=== PATIENT | female | born 1985 | race African-American/Black ===

== ENCOUNTER 2016-12-30 08:35 | Emergency (ER) | payer SELFPAY ==
[2016-12-30] MEDS ORDERED: NORMAL SALINE 1000 ML 1,000 ML IV PRN (09:52)
[2016-12-30 10:54] LABS: ABSOLUTE BASOPHILS # (AUTO) 0.1 10^3/uL (0.0-0.2); ABSOLUTE EOSINOPHILS # (AUTO) 0.1 10^3/uL (0.0-0.6); ABSOLUTE LYMPHOCYTES (AUTO) 2.5 10^3/uL (0.5-4.7); ABSOLUTE MONOCYTES (AUTO) 0.7 10^3/uL (0.1-1.4); ABSOLUTE NEUT (AUTO) 7.1 10^3/uL (1.7-8.2); BASOPHILS % (AUTO) 0.7 % (0-2); EOSINOPHILS % (AUTO) 0.5 % (0-6); HEMOGLOBIN 12.7 g/dL (12.0-15.5); HGB HCT DIFFERENCE 0.1; LYMPHOCYTES % (AUTO) 23.8 % (13-45); MEAN CORPUSCULAR HEMOGLOBIN 29.4 pg (27.0-33.4); MEAN CORPUSCULAR HGB CONC 33.3 g/dL (32.0-36.0); MEAN CORPUSCULAR VOLUME 88 fl (80-97); MONOCYTES % (AUTO) 7.2 % (3-13); RED BLOOD COUNT 4.31 10^6/uL (3.72-5.28); RED CELL DISTRIBUTION WIDTH 14.7 % (11.5-14.0); SEGMENTED NEUTROPHILS % (AUTO) 67.8 % (42-78); WHITE BLOOD COUNT 10.4 10^3/uL (4.0-10.5)
[2016-12-30 11:01] LABS: APPEARANCE,URINE SLIGHTLY-CLOUDY; BILIRUBIN,URINE NEGATIVE (NEGATIVE); GLUCOSE, URINE NEGATIVE (NEGATIVE); KETONES,URINE TRACE mg/dL (NEGATIVE); LEUKOCYTE ESTERASE,URINE TRACE (NEGATIVE); NITRITE,URINE NEGATIVE (NEGATIVE); PROTEIN,URINE NEGATIVE (NEGATIVE); URINE SPECIFIC GRAVITY 1.018
[2016-12-30 11:14] LABS: ANION GAP 12 (5-19); BLOOD UREA NITROGEN 8 mg/dL (7-20); CALCIUM 9.5 mg/dL (8.4-10.2); CARBON DIOXIDE 25 mmol/L (22-30); CHLORIDE 103 mmol/L (98-107); GLUCOSE 83 mg/dL (75-110); POTASSIUM 4.1 mmol/L (3.6-5.0); SODIUM 139.7 mmol/L (137-145)
--- NOTE | 2016-12-30 12:20 | ER Document Report ---
ED General - General Chief Complaint: Vomiting Stated Complaint: VOMITING AND BACK PAIN TRAVEL OUTSIDE OF THE [place] IN LAST 30 DAYS: No - HPI Patient complains to provider of: nausea vomiting back pain Notes: Patient coming in for evaluation nausea vomiting patient states that she is and is a patient denies any abdominal pain vaginal discharge vaginal bleeding. States is ongoing for the past few days. Patient states last menstrual cycle was approximately September early October. Patient denies trying any medications at home. Denies any recent antibiotics denies any recent travel - Related Data Allergies/Adverse Reactions: codeine Allergy (Verified 12/30/16 08:47) Past Medical History - Social History Smoking Status: Never Smoker Chew tobacco use (# tins/day): No Frequency of alcohol use: None Drug Abuse: None Family History: Reviewed & Not Pertinent Patient has suicidal ideation: No Patient has homicidal ideation: No Pulmonary Medical History: Reports: Hx Bronchitis Neurological Medical History: Reports: Hx Migraine Renal/ Medical History: Denies: Hx Peritoneal Dialysis Past Surgical History: Reports: Hx Cholecystectomy - Immunizations Hx Diphtheria, Pertussis, Tetanus Vaccination: Yes - received in 04/2012 per pt Review of Systems - Review of Systems Constitutional: No symptoms reported EENT: No symptoms reported Cardiovascular: No symptoms reported Respiratory: No symptoms reported Gastrointestinal: Nausea, Vomiting Genitourinary: No symptoms reported Female Genitourinary: No symptoms reported Musculoskeletal: No symptoms reported Skin: No symptoms reported Hematologic/Lymphatic: No symptoms reported Neurological/Psychological: No symptoms reported -: Yes All other systems reviewed and negative Physical Exam - Vital signs Vitals: Temp Pulse Resp BP Pulse Ox 98.0 F 88 18 116/68 100 12/30/16 08:46 12/30/16 08:46 12/30/16 08:46 12/30/16 08:46 12/30/16 08:46 Interpretation: Normal - General General appearance: Appears well, Alert - HEENT Head: Normocephalic, Atraumatic Eyes: Normal Pupils: PERRL - Respiratory Respiratory status: No respiratory distress Chest status: Nontender Breath sounds: Normal Chest palpation: Normal - Cardiovascular Rhythm: Regular Heart sounds: Normal auscultation Murmur: No - Abdominal Inspection: Normal Distension: No distension Bowel sounds: Normal Tenderness: Nontender Organomegaly: No organomegaly - Back Back: Normal, Nontender - Extremities General upper extremity: Normal inspection, Nontender, Normal color, Normal ROM , Normal temperature General lower extremity: Normal inspection, Nontender, Normal color, Normal ROM , Normal temperature, Normal weight bearing. No: Duncan's sign - Neurological Neuro grossly intact: Yes Cognition: Normal Orientation: AAOx4 Arline Coma Scale Eye Opening: Spontaneous [place] Coma Scale Verbal: Oriented Arline Coma Scale Motor: Obeys Commands [place] Coma Scale Total: 15 Speech: Normal Motor strength normal: LUE, RUE, LLE, RLE Sensory: Normal - Psychological Associated symptoms: Normal affect, Normal mood - Skin Skin Temperature: Warm Skin Moisture: Dry Skin Color: Normal Course - Re-evaluation Re-evalutation: 12/30/16 15:02 Ultrasound negative feeling that the nausea medication. Patient will be discharged home patient encouraged follow-up with REJECT OPENER - Vital Signs Vital signs: Temp Pulse Resp BP Pulse Ox 98.1 F 76 18 114/65 100 12/30/16 12:26 12/30/16 12:26 12/30/16 12:26 12/30/16 12:26 12/30/16 12:26 - Laboratory Result Diagrams: 12/30/16 10:32 12/30/16 10:32 Laboratory results interpreted by me: 12/30/16 12/30/16 12/30/16 09:25 10:32 10:32 RDW 14.7 H Creatinine 0.50 L Beta HCG, Quant 03106.00 H Urine Ketones TRACE H Urine Urobilinogen 2.0 H Ur Leukocyte Esterase TRACE H Urine HCG, Qual POSITIVE H Discharge - Discharge Clinical Impression: Nausea/vomiting in Qualifiers: Weeks of gestation: less than 8 weeks Qualified Code(s): Z3A.01 - Less than 8 weeks gestation of Low back pain Qualifiers: Chronicity: unspecified Back pain laterality: unspecified Sciatica presence: without sciatica Qualified Code(s): M54.5 - Low back pain Condition: Good Disposition: HOME, SELF-CARE Instructions: ([facility]), Nausea or Vomiting, Nonspecific ([facility]), Stretching Exercises for the Back ([facility]), Low Back Pain ([facility]), Pelvic Pain in ([facility]) Additional Instructions: Your ultrasound today shows a 6 week 4 day . Your lab work does not reveal any other critical etiology. Please take vitamins as prescribed. Please take nausea medication as prescribed. You may take Tylenol for your pain. For nausea and vomiting during I recomment: Start with 10-12.5 mg of pyridoxine (vitamin B6) three times a day for 2 days. If not fully effective, Increase to 12.5 mg of pyridoxine four times a day for 2 days. If not fully effective, Increase to 25 mg of pyridoxine three times a day for 2 days. If not fully effective, Continue 25 mg pyridoxine 3 times a day, and add 12.5 mg of doxylamine before bedtime each day for 2 days. If not fully effective, Continue 25 mg pyridoxine 3 times a day, and take 12.5 mg of doxylamine twice a day. If not fully effective, Continue 25 mg pyridoxine 3 times a day, and take 12.5 mg of doxylamine three times a day. If not fully effective, Continue 25 mg pyridoxine 3 times a day, and 12.5 mg of doxylamine 3 times a day , while adding Emetrol, one to two tablespoons (15-30 cc) taken once or twice a day as needed. (Emetrol is an [id number] mixture of sugar syrups and phosphoric acid [phosphorylated carbohydrate solution]) that acts by soothing the actual wall of the gastrointestinal tract). If not fully effective, Consult with your doctor. Prescriptions: Metoclopramide HCl [Reglan] 5 mg PO Q6 #20 tablet Pnv95/Ferrous Fumarate/FA [ Caplet] 1 each PO DAILY #30 tablet Referrals: TERENCE SARABIA MD [Primary Care Provider] - Follow up in 3-5 days
[2016-12-30 12:30] VITALS: BP 114/65
== END 2016-12-30 12:37 | disposition home or self-care (01) ==
LOC: ER 08:35
DX: O21.9 Vomiting of pregnancy, unspecified (principal); M54.5 Low back pain; Z3A.01 Less than 8 weeks gestation of pregnancy; Z88.6 Allergy status to analgesic agent; Z90.49 Acquired absence of other specified parts of digestive tract
CPT/HCPCS: 99284; 96360; 36415; 84702; 85025; 81025; 80048; 81001; 76817; J7030

== ENCOUNTER 2017-01-04 15:34 | Emergency (ER) | payer SELFPAY ==
[2017-01-04] MEDS ORDERED: DIPHENHYDRAMINE HCL 50 MG CAPSULE PO ONE (16:43)
--- NOTE | 2017-01-04 16:43 | ER Document Report ---
ED Medical Screen (RME) - General Chief Complaint: Headache Stated Complaint: HEADACHE Mode of Arrival: Ambulatory Information source: Patient Notes: Patient complains of headache pain yesterday that has gradually gotten worse. No fever. Patient does complain of nausea, vomiting, and diarrhea. Patient reports vomiting 10 today, diarrhea 5. Patient states she's currently 7 weeks . Patient took Tylenol at 3 PM today without improvement. hx: Migraines I have greeted and performed a rapid initial assessment of this patient. A comprehensive ED assessment and evaluation of the patient, analysis of test results and completion of the medical decision making process will be conducted by additional ED providers. TRAVEL OUTSIDE OF THE [place] IN LAST 30 DAYS: No - Related Data Allergies/Adverse Reactions: codeine Allergy (Verified 12/30/16 08:47) Past Medical History - Social History Family history: Reviewed & Not Pertinent Pulmonary Medical History: Reports: Hx Bronchitis Neurological Medical History: Reports: Hx Migraine Renal/ Medical History: Denies: Hx Peritoneal Dialysis Past Surgical History: Reports: Hx Cholecystectomy - Immunizations Hx Diphtheria, Pertussis, Tetanus Vaccination: Yes - received in 04/2012 per pt Physical Exam - Vital signs Vitals: Temp Pulse Resp BP Pulse Ox 98.3 F 82 16 108/70 100 01/04/17 16:37 01/04/17 16:37 01/04/17 16:37 01/04/17 16:37 01/04/17 16:37 - Neurological Arline Coma Scale Eye Opening: Spontaneous [place] Coma Scale Verbal: Oriented Arline Coma Scale Motor: Obeys Commands [place] Coma Scale Total: 15 Course - Vital Signs Vital signs: Temp Pulse Resp BP Pulse Ox 98.3 F 82 16 108/70 100 01/04/17 16:37 01/04/17 16:37 01/04/17 16:37 01/04/17 16:37 01/04/17 16:37
[2017-01-04 17:48] LABS: ABSOLUTE BASOPHILS # (AUTO) 0.1 10^3/uL (0.0-0.2); ABSOLUTE MONOCYTES (AUTO) 0.9 10^3/uL (0.1-1.4); ABSOLUTE NEUT (AUTO) 10.3 10^3/uL (1.7-8.2); BASOPHILS % (AUTO) 0.4 % (0-2); EOSINOPHILS % (AUTO) 0.2 % (0-6); HEMATOCRIT 38.6 % (36.0-47.0); HEMOGLOBIN 12.8 g/dL (12.0-15.5); HGB HCT DIFFERENCE -0.2; LYMPHOCYTES % (AUTO) 14.9 % (13-45); MEAN CORPUSCULAR HGB CONC 33.1 g/dL (32.0-36.0); MEAN CORPUSCULAR VOLUME 88 fl (80-97); MONOCYTES % (AUTO) 6.4 % (3-13); RED CELL DISTRIBUTION WIDTH 14.2 % (11.5-14.0); SEGMENTED NEUTROPHILS % (AUTO) 78.1 % (42-78); WHITE BLOOD COUNT 13.2 10^3/uL (4.0-10.5)
[2017-01-04 18:05] LABS: ALANINE AMINOTRANSFERASE 33 U/L (9-52); ALBUMIN 4.1 g/dL (3.5-5.0); ALKALINE PHOSPHATASE 83 U/L (38-126); ANION GAP 15 (5-19); ASPARTATE AMINO TRANSFERASE 27 U/L (14-36); BLOOD UREA NITROGEN 9 mg/dL (7-20); CALCIUM 9.4 mg/dL (8.4-10.2); CARBON DIOXIDE 22 mmol/L (22-30); CHLORIDE 101 mmol/L (98-107); CREATININE RESULT 0.49 mg/dL (0.52-1.25); GLUCOSE 84 mg/dL (75-110); LIPASE 22.2 U/L (23-300); POTASSIUM 3.8 mmol/L (3.6-5.0); SODIUM 137.5 mmol/L (137-145); TOTAL PROTEIN 7.4 g/dL (6.3-8.2)
[2017-01-04 22:43] LABS: APPEARANCE,URINE TURBID; BILIRUBIN,URINE NEGATIVE (NEGATIVE); GLUCOSE, URINE NEGATIVE (NEGATIVE); KETONES,URINE 80 mg/dL (NEGATIVE); LEUKOCYTE ESTERASE,URINE TRACE (NEGATIVE); NITRITE,URINE NEGATIVE (NEGATIVE); PROTEIN,URINE NEGATIVE (NEGATIVE); URINE SPECIFIC GRAVITY 1.028
[2017-01-04] MEDS ORDERED: NORMAL SALINE 1000 ML 1,000 ML IV PRN (22:54)
[2017-01-04] MEDS ORDERED: METOCLOPRAMIDE HCL INJ/PF 10 MG/2 ML SDV IV ONE (22:54)
--- NOTE | 2017-01-04 23:20 | ER Document Report ---
ED Headache - General Chief Complaint: Headache Stated Complaint: HEADACHE Time seen by provider: 23:20 Mode of Arrival: Ambulatory Information source: Patient TRAVEL OUTSIDE OF THE [place] 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, she denies any fever, no dysuria or hematuria, no pelvic cramping or vaginal bleeding, she has not been seen by her RECYCLING TECHNICIAN for this , she denies any abdominal pain - Related Data Allergies/Adverse Reactions: codeine Allergy (Verified 12/30/16 08:47) Past Medical History - General Information source: Patient - Social History Smoking Status: Never Smoker Family History: Reviewed & Not Pertinent Patient has suicidal ideation: No Patient has homicidal ideation: No Pulmonary Medical History: Reports: Hx Bronchitis Neurological Medical History: Reports: Hx Migraine Renal/ Medical History: Denies: Hx Peritoneal Dialysis Past Surgical History: Reports: Hx Cholecystectomy - Immunizations Hx Diphtheria, Pertussis, Tetanus Vaccination: Yes - received in 04/2012 per pt Review of Systems - Review of Systems Constitutional: No symptoms reported. denies: Fever EENT: No symptoms reported Cardiovascular: No symptoms reported Respiratory: No symptoms reported Gastrointestinal: See HPI Genitourinary: No symptoms reported Female Genitourinary: No symptoms reported Musculoskeletal: No symptoms reported Skin: No symptoms reported Hematologic/Lymphatic: No symptoms reported Neurological/Psychological: Headaches -: Yes All other systems reviewed and negative Physical Exam - Vital signs Vitals: Temp Pulse Resp BP Pulse Ox 98.3 F 82 16 108/70 100 01/04/17 16:37 01/04/17 16:37 01/04/17 16:37 01/04/17 16:37 01/04/17 16:37 Interpretation: Normal - General General appearance: Appears well, Alert - HEENT Head: Normocephalic, Atraumatic Eyes: Normal Pupils: PERRL - Respiratory Respiratory status: No respiratory distress Chest status: Nontender Breath sounds: Normal Chest palpation: Normal - Cardiovascular Rhythm: Regular Heart sounds: Normal auscultation Murmur: No - Abdominal Inspection: Normal Distension: No distension Bowel sounds: Normal Tenderness: Nontender Organomegaly: No organomegaly - Back Back: Normal, Nontender - Extremities General upper extremity: Normal inspection, Nontender, Normal color, Normal ROM , Normal temperature General lower extremity: Normal inspection, Nontender, Normal color, Normal ROM , Normal temperature, Normal weight bearing. No: Duncan's sign - Neurological Neuro grossly intact: Yes Cognition: Normal Orientation: AAOx4 [place] Coma Scale Eye Opening: Spontaneous [place] Coma Scale Verbal: Oriented Arline Coma Scale Motor: Obeys Commands [place] Coma Scale Total: 15 Speech: Normal Motor strength normal: LUE, RUE, LLE, RLE Sensory: Normal - Psychological Associated symptoms: Normal affect, Normal mood - Skin Skin Temperature: Warm Skin Moisture: Dry Skin Color: Normal Course - Re-evaluation Re-evalutation: 01/05/17 01:10 Patient resting comfortably, reports feeling much better and ready to go home, she is tolerating by mouth intake, patient will be discharged with prescription for antinausea medication and advised to follow-up with her primary care provider and RECYCLING TECHNICIAN or return if symptoms worsen, patient acknowledges understanding and agreement with this plan - Vital Signs Vital signs: Temp Pulse Resp BP Pulse Ox 97.6 F 72 16 130/78 H 100 01/04/17 22:46 01/04/17 22:46 01/04/17 22:46 01/04/17 22:46 01/04/17 22:46 - Laboratory Result Diagrams: 01/04/17 17:05 01/04/17 17:05 Laboratory results interpreted by me: 01/04/17 01/04/17 01/04/17 17:05 17:05 17:05 WBC 13.2 H RDW 14.2 H Seg Neutrophils % 78.1 H Absolute Neutrophils 10.3 H Creatinine 0.49 L Lipase 22.2 L Beta HCG, Quant 826499.00 H Urine Ketones 80 H Urine Urobilinogen 2.0 H Ur Leukocyte Esterase TRACE H Discharge - Discharge Clinical Impression: Nausea/vomiting in Qualifiers: Weeks of gestation: less than 8 weeks Qualified Code(s): Z3A.01 - Less than 8 weeks gestation of Headache Qualifiers: Headache type: unspecified Headache chronicity pattern: acute headache Intractability: not intractable Qualified Code(s): R51 - Headache Condition: Stable Disposition: HOME, SELF-CARE Instructions: Intravenous (IV) Fluids ([facility]), Reglan ([facility]), Vomiting ([facility]), Antinausea Medication ([facility]) Additional Instructions: Follow up with your primary care provider and RECYCLING TECHNICIAN in one to 2 days. Return to the emergency room immediately if symptoms worsen or any additional concerns. Prescriptions: Metoclopramide HCl [Reglan 10 mg Tablet] 1 - 2 tab PO ASDIR PRN #25 tablet PRN Reason: Forms: Return to Work
[2017-01-05] MEDS ORDERED: METOCLOPRAMIDE HCL INJ/PF 10 MG/2 ML SDV IV ONE (01:10)
[2017-01-05 01:46] VITALS: BP 130/74
== END 2017-01-05 01:46 | disposition home or self-care (01) ==
LOC: ER 15:34
DX: O26.891 Other specified pregnancy related conditions, first trimester (principal); R51 Headache; O21.9 Vomiting of pregnancy, unspecified; Z3A.01 Less than 8 weeks gestation of pregnancy; Z88.5 Allergy status to narcotic agent; Z90.49 Acquired absence of other specified parts of digestive tract
CPT/HCPCS: 96376; 99284; 96361; 96374; 36415; 84702; 83690; 85025; 80053; 81001; J2765 ×2; J7030

== ENCOUNTER 2017-02-24 18:52 | Emergency (ER) | payer MEDICAID ==
--- NOTE | 2017-02-24 20:12 | ER Document Report ---
ED Medical Screen (RME) - General Stated Complaint: VAGINAL BLEEDING Notes: 32 yo , 14wks gestation c/o lower abdominal cramping/pressure and vaginal spotting since this morning. reports 1 episode hematemesis this morning [facility]- [facility] TRAVEL OUTSIDE OF THE [place] IN LAST 30 DAYS: No - Related Data Allergies/Adverse Reactions: codeine Allergy (Verified 12/30/16 08:47) Past Medical History - Social History Family history: Reviewed & Not Pertinent Pulmonary Medical History: Reports: Hx Bronchitis Neurological Medical History: Reports: Hx Migraine Renal/ Medical History: Denies: Hx Peritoneal Dialysis Past Surgical History: Reports: Hx Cholecystectomy - Immunizations Hx Diphtheria, Pertussis, Tetanus Vaccination: Yes - received in 04/2012 per pt Physical Exam - Vital signs Vitals: Temp Pulse Resp BP Pulse Ox 98.9 F 94 16 119/70 100 02/24/17 18:56 02/24/17 18:56 02/24/17 18:56 02/24/17 18:56 02/24/17 18:56 Course - Vital Signs Vital signs: Temp Pulse Resp BP Pulse Ox 98.9 F 94 16 119/70 100 02/24/17 18:56 02/24/17 18:56 02/24/17 18:56 02/24/17 18:56 02/24/17 18:56
[2017-02-24 20:56] LABS: APPEARANCE,URINE SLIGHTLY-CLOUDY; BILIRUBIN,URINE NEGATIVE (NEGATIVE); GLUCOSE, URINE NEGATIVE (NEGATIVE); KETONES,URINE TRACE mg/dL (NEGATIVE); LEUKOCYTE ESTERASE,URINE TRACE (NEGATIVE); NITRITE,URINE NEGATIVE (NEGATIVE); PROTEIN,URINE NEGATIVE (NEGATIVE); URINE SPECIFIC GRAVITY 1.033
--- NOTE | 2017-02-24 22:42 | ER Document Report ---
ED GI/ - General Time seen by provider: 23:40 Mode of Arrival: Ambulatory Information source: Patient TRAVEL OUTSIDE OF THE [place] IN LAST 30 DAYS: No - HPI Patient complains to provider of: Abdominal pain, , Vaginal bleeding Onset: This morning - see HPI note Quality of pain: Cramping, Stabbing : 7 Para: 4 Abortions: 2 - General Chief Complaint: Vag Bleeding, +preg <12wks Stated Complaint: VAGINAL BLEEDING Notes: Patient is a 22-year-old female presenting to the emergency department for vaginal bleeding and stabbing abdominal pain. Patient states the symptoms started this morning. Patient's ultrasound today from today's visit shows the patient is 15 weeks and 1 day . Patient denies any recent sex, nausea, vomiting, or diarrhea. Patient states that she has used a pad, but has not soaked through the pad with her bleeding. Patient is G7, P4, A2. Patient[facility] Patient is allergic to codeine. (CELSA UMAÑA) - Related Data Allergies/Adverse Reactions: codeine Allergy (Verified 12/30/16 08:47) Past Medical History - General Information source: Patient - Social History Smoking Status: Never Smoker Chew tobacco use (# tins/day): No Frequency of alcohol use: None Drug Abuse: None Family History: None Patient has suicidal ideation: No Patient has homicidal ideation: No Pulmonary Medical History: Reports: Hx Bronchitis Neurological Medical History: Reports: Hx Migraine Past Surgical History: Reports: Hx Cholecystectomy - Immunizations Hx Diphtheria, Pertussis, Tetanus Vaccination: Yes - received in 04/2012 per pt Review of Systems - Review of Systems Constitutional: No symptoms reported EENT: No symptoms reported Cardiovascular: No symptoms reported Respiratory: No symptoms reported Gastrointestinal: See HPI, Abdominal pain Genitourinary: No symptoms reported Female Genitourinary: See HPI, , Vaginal bleeding Musculoskeletal: No symptoms reported Skin: No symptoms reported Hematologic/Lymphatic: No symptoms reported Neurological/Psychological: No symptoms reported -: Yes All other systems reviewed and negative Physical Exam - Vital signs Interpretation: Normal - General General appearance: Appears well, Alert In distress: Mild - HEENT Head: Normocephalic, Atraumatic Eyes: Normal Pupils: PERRL Mucous membranes: Moist - Respiratory Respiratory status: No respiratory distress Chest status: Nontender Breath sounds: Normal Chest palpation: Normal - Cardiovascular Rhythm: Regular Heart sounds: Normal auscultation Murmur: No - Abdominal Inspection: Normal Distension: No distension Bowel sounds: Normal Tenderness: Nontender Organomegaly: No organomegaly - Genitourinary External exam: Normal Speculum exam: Normal, Cervix closed Vaginal bleeding: None Bimanuel exam: Normal - Back Back: Normal, Nontender - Extremities General upper extremity: Normal inspection, Normal ROM, Normal strength General lower extremity: Normal inspection, Normal ROM, Normal strength - Neurological Neuro grossly intact: Yes Cognition: Normal Orientation: AAOx4 [place] Coma Scale Eye Opening: Spontaneous [place] Coma Scale Verbal: Oriented [place] Coma Scale Motor: Obeys Commands [place] Coma Scale Total: 15 Speech: Normal Sensory: Normal - Psychological Associated symptoms: Normal affect, Normal mood - Skin Skin Temperature: Warm Skin Moisture: Dry - Vital signs Vitals: Temp Pulse Resp BP Pulse Ox 98.9 F 94 16 119/70 100 02/24/17 18:56 02/24/17 18:56 02/24/17 18:56 02/24/17 18:56 02/24/17 18:56 Course - Re-evaluation Re-evalutation: 02/25/17 00:55 I personally performed the services described in the documentation, reviewed and edited the documentation which was dictated to my scribe in my presence, and it accurately records my words and actions. Patient presents emergency from states she's 14 weeks she's been spotting. Chart says she's been throwing up blood she denies that to me. Says she was using a pad and had a couple specks of blood on it. Says she just [facility]. She is denying any abdominal pain back pain urinary symptoms fevers chills or change in appetite no nausea vomiting diarrhea says occasionally she gets a little cramping with the spotting. She is with 2 miscarriages. On pelvic examination her os is closed is no active bleeding ultrasound shows her to be 15 weeks and 1 day. She is Rh- and be given the RhoGAM shot. She is going to be discharge follow-up with women's health care in the next 2-3 days and instructed her to return immediately for increasing bleeding pain or any other concerns by the above treatment. (NISSA CROCKETT) - Vital Signs Vital signs: Temp Pulse Resp BP Pulse Ox 98.3 F 88 16 123/78 99 02/25/17 02:10 02/25/17 02:10 02/25/17 02:10 02/25/17 02:10 02/25/17 02:10 - Laboratory Laboratory results interpreted by me: 02/24/17 02/24/17 20:20 20:20 Beta HCG, Quant 70315.00 H Urine Ketones TRACE H Urine Urobilinogen 2.0 H Ur Leukocyte Esterase TRACE H Discharge - Discharge Clinical Impression: second trimester spotting Condition: Stable Disposition: HOME, SELF-CARE Additional Instructions: Vaginal spotting in You are having an episode of abnormal bleeding. Causes of abnormal vaginal bleeding can include miscarriage or tubal , tumors such as cancer or benign fibroids, medication effects, or hormone imbalance. Testing can eliminate unsuspected , tumors, or infection as a cause. Ultrasound shows you to be 15 weeks and 1 day. Currently your not actively bleeding on my examination. On call women's health in the a.m. follow-up with them in 2-3 days and return immediately to the emergency prone for increasing pain bleeding or any other concerns despite the above treatment Forms: Return to Work Referrals: [facility] [Provider Group] - Follow up tomorrow (Call in a.m. to be seen in follow-up in 2-3 days return for increasing worsening or new symptom) Scribe Documentation - Scribe Written by Scribcharla:: Celsa Umaña 02/25/17 2:50 acting as scribe for :: Carmelo
[2017-02-25 02:37] VITALS: BP 123/78
== END 2017-02-25 02:37 | disposition home or self-care (01) ==
LOC: ER 18:52
DX: O46.92 Antepartum hemorrhage, unspecified, second trimester (principal)
CPT/HCPCS: 99284; 96372; 86900; 86901; 36415; 86850; 84702; 81001; 76805; J2790

== ENCOUNTER 2017-03-18 12:14 | Emergency (ER) | payer MEDICAID ==
--- NOTE | 2017-03-18 13:54 | ER Document Report ---
HPI - HPI Patient complains to provider of: sore throat, ear pain, nasal congestion Onset: Other - wednesday Onset/Duration: Persistent Quality of pain: Achy Severity: Severe Pain Level: 4 Context: Patient presents to emergency department with complaints of flulike symptoms. Patient reports she's had a lot of nasal congestion, ear pain and a sore throat since Wednesday. She denies fever vomiting diarrhea. Patient is 17 weeks . She denies pain with void. She denies vaginal bleeding, denies abdominal pain. She denies cough. She reports one of her children had strep earlier this week. Associated Symptoms: Earache, Sore throat Exacerbated by: Denies Relieved by: Denies Similar symptoms previously: No Recently seen / treated by doctor: No - CARDIOVASCULAR Cardiovascular: DENIES: Chest pain - REPRODUCTIVE Reproductive: DENIES: : - DERM Skin Color: Normal Past Medical History - General Information source: Patient Last Menstrual Period: 17 weeks - Social History Smoking Status: Never Smoker Cigarette use (# per day): No Chew tobacco use (# tins/day): No Frequency of alcohol use: None Drug Abuse: None Lives with: Family Family History: None Patient has suicidal ideation: No Patient has homicidal ideation: No Pulmonary Medical History: Reports: Hx Bronchitis Neurological Medical History: Reports: Hx Migraine Renal/ Medical History: Denies: Hx Peritoneal Dialysis Past Surgical History: Reports: Hx Cholecystectomy - Immunizations Hx Diphtheria, Pertussis, Tetanus Vaccination: Yes - received in 04/2012 per pt Vertical Provider Document - CONSTITUTIONAL Agree With Documented VS: Yes Exam Limitations: No Limitations General Appearance: WD/WN, No Apparent Distress - nontoxic looking - INFECTION CONTROL TRAVEL OUTSIDE OF THE [place] IN LAST 30 DAYS: No - HEENT HEENT: Atraumatic, Normocephalic, PERRLA, Pharyngeal Erythema - No peritonsillar abscess good clear voice no trismus. negative: Conjuctival Injection, Pharyngeal Exudate, Pharyngeal Tenderness, Tympanic Membrane Red, Tympanic Membrane Bulging - NECK Neck: Normal Inspection - RESPIRATORY Respiratory: Breath Sounds Normal, No Respiratory Distress O2 Sat by Pulse Oximetry: 99 - CARDIOVASCULAR Cardiovascular: Regular Rate, Regular Rhythm - GI/ABDOMEN Gastrointestinal: Abdomen Non-Tender - MUSCULOSKELETAL/EXTREMETIES Musculoskeletal/Extremeties: ZACH ADAME - NEURO Level of Consciousness: Awake, Alert, Appropriate Motor/Sensory: No Motor Deficit - DERM Integumentary: Warm, Dry Course - Re-evaluation Re-evalutation: 03/18/17 13:51 Considered flu but patient has had symptoms since Wednesday. Considered strep versus allergies versus cold symptoms. Strep test ordered. 03/18/17 13:54 Patient provided with a list of medication she can take when she is . Patient was instructed on good hand washing. Vital signs stable no fever. - Vital Signs Vital signs: Temp Pulse Resp BP Pulse Ox 98.0 F 114 H 18 113/78 99 03/18/17 12:34 03/18/17 12:34 03/18/17 12:34 03/18/17 12:34 03/18/17 12:34 Discharge - Discharge Clinical Impression: Sore throat Condition: Stable Disposition: HOME, SELF-CARE Instructions: Acetaminophen, Sore Throat ([facility]) Additional Instructions: *You have been evaluated for nasal congestion, ear pain, sore throat *The rapid strep test was negative *Throat culture is pending. You will be contacted should you need antibiotics. *Increase fluid intake *Warm salt water gargles and throat lozenges for comfort *Do not share food or drinks *Monitor your temperature, take Tylenol as indicated *Follow up with a primary care provider within one week for recheck *Return to ED for worsening condition, changes, needs Forms: Return to Work Referrals: TERENCE SARABIA MD [Primary Care Provider] - Follow up as needed
[2017-03-18 14:36] VITALS: BP 101/69
== END 2017-03-18 14:38 | disposition home or self-care (01) ==
LOC: ER 12:14
DX: O99.512 Diseases of the respiratory system complicating pregnancy, second trimester (principal); J02.9 Acute pharyngitis, unspecified; O26.892 Other specified pregnancy related conditions, second trimester; R09.81 Nasal congestion; H92.09 Otalgia, unspecified ear; Z20.818 Contact with and (suspected) exposure to other bacterial communicable diseases; Z3A.17 17 weeks gestation of pregnancy
CPT/HCPCS: 87070; 87077; 87880; 99283

== ENCOUNTER 2017-03-27 09:38 | Emergency (ER) | payer MEDICAID ==
--- NOTE | 2017-03-27 10:03 | ER Document Report ---
ED General - General Chief Complaint: Chest Congestion Stated Complaint: CHEST PAIN Mode of Arrival: Ambulatory Information source: Patient Notes: 32-year-old female who is presents with complaints of cough congestion of 2 week duration with sore throat. Patient denies any fevers or chills admits to mild nausea. Patient has been seen multiple times for these complaints. TRAVEL OUTSIDE OF THE [place] IN LAST 30 DAYS: No - HPI Onset: Other - 2 week duration Onset/Duration: Persistent Quality of pain: Achy Severity: Mild Pain Level: 1 Associated symptoms: Body/muscle aches, Nonproductive cough, Shortness of breath Exacerbated by: Denies Relieved by: Denies Similar symptoms previously: Yes Recently seen / treated by doctor: Yes - Related Data Allergies/Adverse Reactions: codeine Allergy (Verified 03/27/17 09:43) Past Medical History - Social History Smoking Status: Never Smoker Cigarette use (# per day): No Chew tobacco use (# tins/day): No Smoking Education Provided: No Family History: None Patient has suicidal ideation: No Patient has homicidal ideation: No Pulmonary Medical History: Reports: Hx Bronchitis Neurological Medical History: Reports: Hx Migraine Renal/ Medical History: Denies: Hx Peritoneal Dialysis Past Surgical History: Reports: Hx Cholecystectomy - Immunizations Hx Diphtheria, Pertussis, Tetanus Vaccination: Yes - received in 04/2012 per pt Review of Systems - Review of Systems Notes: ALL OTHER SYSTEMS REVIEWED AND NEGATIVE. Dictation was performed using [employer] voice recognition software PHYSICAL EXAMINATION: GENERAL: Well-appearing, well-nourished and in no acute distress. HEAD: Atraumatic, normocephalic. EYES: Pupils equal round and reactive to light, extraocular movements intact, conjunctiva are normal. ENT: Nares patent, oropharynx clear without exudates. Moist mucous membranes. NECK: Normal range of motion, supple without lymphadenopathy LUNGS: Breath sounds clear to auscultation bilaterally and equal. No wheezes rales or rhonchi. HEART: Regular rate and rhythm without murmurs ABDOMEN: Soft, nontender, nondistended abdomen. No guarding, no rebound. No masses appreciated. Female : deferred Musculoskeletal: Normal range of motion, no pitting or edema. No cyanosis. NEUROLOGICAL: Cranial nerves grossly intact. Normal speech, normal gait. Normal sensory, motor exams PSYCH: Normal mood, normal affect. SKIN: Warm, Dry, normal turgor, no rashes or lesions noted. Physical Exam - Vital signs Vitals: Temp Pulse Resp BP Pulse Ox 97.7 F 87 16 106/71 99 03/27/17 09:45 03/27/17 09:45 03/27/17 09:45 03/27/17 09:45 03/27/17 09:45 Course - Re-evaluation Re-evalutation: 03/27/17 10:02 Given the patient has been evaluated twice now for similar complaints she looks well I do not expect any life-threatening issues, however chest x-ray influenza and Monospot have been ordered given that these have not been looked into 03/27/17 11:13 Is noted that the patient has been vomiting, her ketones are elevated I will hydrate her at this time 03/27/17 12:07 Urinalysis is consistent with a UTI, patient will be discharged home on antibiotics is otherwise stable well-appearing After performing a Medical Screening Examination, I estimate there is LOW risk for ACUTE CORONARY SYNDROME, RESPIRATORY FAILURE, SEPSIS OR MENINGITIS, thus I consider the discharge disposition reasonable. I have reevaluated this patient multiple times and no significant life threatening changes are noted. The patient and I have discussed the diagnosis and risks, and we agree with discharging home with close follow-up. We also discussed returning to the Emergency Department immediately if new or worsening symptoms occur. We have discussed the symptoms which are most concerning (e.g., changing or worsening pain, trouble swallowing or breathing, neck stiffness, fever) that necessitate immediate return. - Vital Signs Vital signs: Temp Pulse Resp BP Pulse Ox 97.7 F 87 14 106/71 99 03/27/17 09:45 03/27/17 09:45 03/27/17 11:31 03/27/17 09:45 03/27/17 09:45 - Laboratory Laboratory results interpreted by me: 03/27/17 10:00 Urine Protein 30 H Urine Ketones 80 H Urine Urobilinogen 2.0 H Ur Leukocyte Esterase LARGE H - Diagnostic Test Radiology reviewed: Image reviewed, Reports reviewed Discharge - Discharge Clinical Impression: Ketonuria, UTI in Nausea & vomiting Qualifiers: Vomiting type: unspecified Vomiting Intractability: non-intractable Qualified Code(s): R11.2 - Nausea with vomiting, unspecified Condition: Stable Disposition: HOME, SELF-CARE Instructions: Urinary Tract Infection ([facility]) Additional Instructions: Follow up with your physician tomorrow for further care or return to the ED IMMEDIATELY if symptoms worsen or new concerns occur. If you cannot afford to follow up with your primary care physician a list of low cost clinics have been provided at the end of your discharge papers as well. Prescriptions: Nitrofurantoin/Nitrofuran Mac [Macrobid 100 mg Capsule] 1 tab PO BID #20 capsule Promethazine HCl [Phenergan 25 mg Tablet] 1 - 2 tab PO Q6H PRN #15 tablet PRN Reason:
[2017-03-27] MEDS ORDERED: IPRATROPIUM/ALBUTEROL 0.5-2.5 MG/3 ML AMPUL NEB ONE (10:13)
[2017-03-27 10:45] LABS: AMORPHOUS SEDIMENT,URINE 1+ /HPF; APPEARANCE,URINE TURBID; BILIRUBIN,URINE NEGATIVE (NEGATIVE); GLUCOSE, URINE NEGATIVE (NEGATIVE); KETONES,URINE 80 mg/dL (NEGATIVE); LEUKOCYTE ESTERASE,URINE LARGE (NEGATIVE); NITRITE,URINE NEGATIVE (NEGATIVE); PROTEIN,URINE 30 mg/dL (NEGATIVE); URINE SPECIFIC GRAVITY 1.017
[2017-03-27] MEDS ORDERED: NORMAL SALINE 1000 ML 1,000 ML IV ONE (11:08)
[2017-03-27 12:21] VITALS: BP 105/66
== END 2017-03-27 11:50 | disposition home or self-care (01) ==
LOC: ER 09:38
DX: N39.0 Urinary tract infection, site not specified (principal); R82.4 Acetonuria; R09.89 Other specified symptoms and signs involving the circulatory and respiratory systems; R07.9 Chest pain, unspecified; J02.9 Acute pharyngitis, unspecified; R11.0 Nausea
CPT/HCPCS: 94640; 99285; 36415; 87086; 86308; 81001; 87804; 71020; J7030; J7620

== ENCOUNTER 2017-06-14 07:55 | Outpatient (CLI) | payer MEDICAID ==
[2017-06-14 20:33] LABS: APPEARANCE,URINE CLOUDY; BILIRUBIN,URINE NEGATIVE (NEGATIVE); GLUCOSE, URINE NEGATIVE (NEGATIVE); KETONES,URINE 80 mg/dL (NEGATIVE); LEUKOCYTE ESTERASE,URINE TRACE (NEGATIVE); NITRITE,URINE NEGATIVE (NEGATIVE); PROTEIN,URINE 30 mg/dL (NEGATIVE)
[2017-06-14] MEDS ORDERED: HYDROXYZINE PAMOATE 50 MG CAPSULE PO ONE (20:44)
[2017-06-14] MEDS ORDERED: RINGERS SOLUTION,LACTATED 1,000 ML IV ONE (20:45)
[2017-06-14 20:51] LABS: URINE BARBITURATES SCREEN NEGATIVE; URINE METHADONE SCREEN NEGATIVE; URINE OPIATES LOW NEGATIVE; URINE PHENCYCLIDINE SCREEN NEGATIVE
[2017-06-14] MEDS ORDERED: HYDROXYZINE PAMOATE 50 MG CAPSULE ONE (21:31)
--- NOTE | 2017-06-14 22:28 | RADIOLOGY REPORT (SQ) ---
EXAM DESCRIPTION: U/S OB LIMITED COMPLETED DATE/TIME: 06/14/2017 10:09 pm REASON FOR STUDY: Cervical Length COMPARISON: None. TECHNIQUE: Limited transvaginal and transabdominal grayscale ultrasound for evaluation of specific r equested obstetrical parameters. LIMITATIONS: None. FINDINGS: CERVICAL LENGTH: 3.7 cm Closed. DAMIÁN: 19.9 cm cm. FHR: 137 beats per minute. PRESENTATION: Cephalic. OTHER: Anterior placenta. IMPRESSION: LIMITED OBSTETRICAL ULTRASOUND WITH MEASURED PARAMETERS DELINEATED ABOVE. Trimester of : Third trimester - 28 weeks to delivery. TECHNICAL DOCUMENTATION: JOB ID: [id number] [employer]- All Rights Reserved
== END 2017-06-14 22:51 | disposition home or self-care (01) ==
LOC: LC 07:55
PROVIDERS: ATTEND Obstetrics & Gynecology
PROC: 4A1HXCZ Monitoring of Products of Conception, Cardiac Rate, External Approach (ICD-10-PCS; principal; 2017-06-14)
DX: O47.03 False labor before 37 completed weeks of gestation, third trimester (principal); O99.283 Endocrine, nutritional and metabolic diseases complicating pregnancy, third trimester; E86.0 Dehydration; Z3A.29 29 weeks gestation of pregnancy
CPT/HCPCS: 59899; 81001; 80307; 76815; J3490

== ENCOUNTER 2017-07-08 08:50 | Emergency (ER) | payer MEDICAID ==
[2017-07-08] MEDS ORDERED: NORMAL SALINE 1000 ML 1,000 ML IV ONE (09:29)
[2017-07-08] MEDS ORDERED: METOCLOPRAMIDE HCL INJ/PF 10 MG/2 ML SDV IV ONE (09:29)
[2017-07-08] MEDS ORDERED: DIPHENHYDRAMINE HCL 50 MG/ML VIAL IV ONE (09:29)
--- NOTE | 2017-07-08 09:30 | ER Document Report ---
ED GI/ - General Chief Complaint: Dizziness Time Seen by Provider: 07/08/17 09:22 Mode of Arrival: Ambulatory Information source: Patient Notes: Patient is presently 33 weeks reports a four-day history of nausea and vomiting. Patient states she vomited about 7 times. Patient denies any diarrhea. Patient states she saw her MODEL MAKER APPRENTICE for this complaint 2 days ago. Patient states she saw him earlier today and they advised her to come here for evaluation. Patient is currently . Patient complains of generalized body aches but does report abdominal cramping. Patient denies any fever or urinary symptoms. Patient is concerned that she is dehydrated. Patient states she took Phenergan yesterday without improvement of her symptoms. TRAVEL OUTSIDE OF THE [place] IN LAST 30 DAYS: No - HPI Patient complains to provider of: Abdominal pain, , Vomiting Onset: Other - 4 days Timing/Duration: Persistent Quality of pain: Achy Pain Level: 2 Vaginal bleeding (Compared to normal period): None Associated symptoms: Dizzy, Loss of appetite, Nausea, Vomiting. denies: Dysuria , Fever, Urinary hesitancy, Urinary frequency, Urinary retention, Urinary urgency, Vaginal discharge Exacerbated by: Denies Relieved by: Denies Similar symptoms previously: Yes Recently seen / treated by doctor: Yes - Related Data Allergies/Adverse Reactions: acetaminophen [From Percocet] Allergy (Verified 07/08/17 09:16) codeine Allergy (Verified 07/08/17 09:16) oxycodone [From Percocet] Allergy (Verified 07/08/17 09:16) Past Medical History - General Information source: Patient Last Menstrual Period: 33 wks - Social History Smoking Status: Never Smoker Frequency of alcohol use: None Drug Abuse: None 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 denies: Fever, Recent illness EENT: No symptoms reported Cardiovascular: Dizziness Respiratory: No symptoms reported. denies: Cough, Short of breath Gastrointestinal: Abdominal pain, Nausea, Vomiting, Poor appetite, Poor fluid intake. denies: Diarrhea Genitourinary: No symptoms reported. denies: Dysuria, Flank pain Female Genitourinary: . denies: Vaginal discharge, Vaginal bleeding Musculoskeletal: No symptoms reported, Muscle pain - generalized Skin: No symptoms reported. denies: Rash Hematologic/Lymphatic: No symptoms reported Neurological/Psychological: No symptoms reported Physical Exam - Vital signs Vitals: Temp Pulse Resp BP Pulse Ox 98.8 F 94 16 115/70 99 07/08/17 09:16 07/08/17 09:16 07/08/17 09:16 07/08/17 09:16 07/08/17 09:16 - General General appearance: Appears well, Alert In distress: None - HEENT Head: Normocephalic, Atraumatic Eyes: Normal Nasal: Normal Mouth/Lips: Normal Mucous membranes: Normal Pharynx: Normal Neck: Normal, Supple. No: Lymphadenopathy - Respiratory Respiratory status: No respiratory distress Chest status: Nontender Breath sounds: Normal. No: Rales, Rhonchi, Stridor, Wheezing Chest palpation: Normal - Cardiovascular Rhythm: Regular Heart sounds: S1 appreciated, S2 appreciated Murmur: No - Abdominal Inspection: Gravid female Distension: No distension Bowel sounds: Normal Tenderness: Nontender - Back Back: Normal, Nontender. No: CVA tenderness - Extremities General upper extremity: Normal inspection, Normal ROM General lower extremity: Normal inspection, Normal ROM - Neurological Neuro grossly intact: Yes Cognition: Normal [address] Coma Scale Eye Opening: Spontaneous [address] Coma Scale Verbal: Oriented Arline Coma Scale Motor: Obeys Commands [address] Coma Scale Total: 15 - Psychological Associated symptoms: Normal affect, Normal mood - Skin Skin Temperature: Warm Skin Moisture: Dry Skin Color: Normal Course - Re-evaluation Re-evalutation: 07/08/17 11:15 Patient sleeping, arouses easily to voice. Patient denies any nausea at this time. Patient given p.o. fluids to try to drink. 07/08/17 12:39 Patient denies any nausea or vomiting. Patient complains of generalized abdominal achiness. Discussed results of patient's test. Patient advised that we will send her upstairs for labor check. - Vital Signs Vital signs: Temp Pulse Resp BP Pulse Ox 98.8 F 94 14 115/70 99 07/08/17 09:16 07/08/17 09:16 07/08/17 09:57 07/08/17 09:16 07/08/17 09:16 - Laboratory Result Diagrams: 07/08/17 09:55 07/08/17 09:55 Laboratory results interpreted by me: 07/08/17 07/08/17 07/08/17 09:55 09:55 10:05 WBC 11.7 H RBC 3.50 L Hgb 10.3 L Hct 30.6 L Absolute Neutrophils 8.5 H Sodium 136.1 L Chloride 108 H Carbon Dioxide 19 L BUN 5 L Creatinine 0.42 L Total Protein 6.2 L Albumin 3.3 L Urine Ketones TRACE H Urine Urobilinogen 2.0 H Labs- Entire Visit 07/08/17 07/08/17 07/08/17 09:55 09:55 10:05 WBC 11.7 H RBC 3.50 L Hgb 10.3 L Hct 30.6 L MCV 87 MCH 29.3 MCHC 33.6 RDW 13.6 Plt Count 241 Seg Neutrophils % 72.7 Lymphocytes % 17.7 Monocytes % 8.5 Eosinophils % 0.6 Basophils % 0.5 Absolute Neutrophils 8.5 H Absolute Lymphocytes 2.1 Absolute Monocytes 1.0 Absolute Eosinophils 0.1 Absolute Basophils 0.1 Sodium 136.1 L Potassium 4.2 Chloride 108 H Carbon Dioxide 19 L Anion Gap 9 BUN 5 L Creatinine 0.42 L Est GFR ( Amer) > 60 Est GFR (Non-Af Amer) > 60 Glucose 84 Calcium 8.8 Total Bilirubin 0.9 Direct Bilirubin 0.4 Indirect Bilirubin Not Reportable Neonat Total Bilirubin Not Reportable AST 21 ALT 19 Alkaline Phosphatase 92 Total Protein 6.2 L Albumin 3.3 L Lipase 32.5 Urine Color YELLOW Urine Appearance CLOUDY Urine pH 7.0 Ur Specific [place] 1.024 Urine Protein NEGATIVE Urine Glucose (UA) NEGATIVE Urine Ketones TRACE H Urine Blood NEGATIVE Urine Nitrite NEGATIVE Urine Bilirubin NEGATIVE Urine Urobilinogen 2.0 H Ur Leukocyte Esterase NEGATIVE Urine RBC (Auto) 1 Urine Bacteria (Auto) TRACE Squamous Epi Cells Auto 90 Amorphous Sediment Auto 2+ Urine Mucus (Auto) MOD Urine Ascorbic Acid NEGATIVE 07/08/17 13:06 Labs- Entire Visit 07/08/17 07/08/17 07/08/17 09:55 09:55 10:05 WBC 11.7 H RBC 3.50 L Hgb 10.3 L Hct 30.6 L MCV 87 MCH 29.3 MCHC 33.6 RDW 13.6 Plt Count 241 Seg Neutrophils % 72.7 Lymphocytes % 17.7 Monocytes % 8.5 Eosinophils % 0.6 Basophils % 0.5 Absolute Neutrophils 8.5 H Absolute Lymphocytes 2.1 Absolute Monocytes 1.0 Absolute Eosinophils 0.1 Absolute Basophils 0.1 Sodium 136.1 L Potassium 4.2 Chloride 108 H Carbon Dioxide 19 L Anion Gap 9 BUN 5 L Creatinine 0.42 L Est GFR ( Amer) > 60 Est GFR (Non-Af Amer) > 60 Glucose 84 Calcium 8.8 Total Bilirubin 0.9 Direct Bilirubin 0.4 Indirect Bilirubin Not Reportable Neonat Total Bilirubin Not Reportable AST 21 ALT 19 Alkaline Phosphatase 92 Total Protein 6.2 L Albumin 3.3 L Lipase 32.5 Urine Color YELLOW Urine Appearance CLOUDY Urine pH 7.0 Ur Specific [place] 1.024 Urine Protein NEGATIVE Urine Glucose (UA) NEGATIVE Urine Ketones TRACE H Urine Blood NEGATIVE Urine Nitrite NEGATIVE Urine Bilirubin NEGATIVE Urine Urobilinogen 2.0 H Ur Leukocyte Esterase NEGATIVE Urine RBC (Auto) 1 Urine Bacteria (Auto) TRACE Squamous Epi Cells Auto 90 Amorphous Sediment Auto 2+ Urine Mucus (Auto) MOD Urine Ascorbic Acid NEGATIVE 07/08/17 13:06 Discharge - Discharge Clinical Impression: Nausea and vomiting Qualifiers: Vomiting type: unspecified Vomiting Intractability: non-intractable Qualified Code(s): R11.2 - Nausea with vomiting, unspecified Qualifiers: Weeks of gestation: 33 weeks Qualified Code(s): Z3A.33 - 33 weeks gestation of Abdominal tenderness Qualifiers: Abdominal location: unspecified location Presence of rebound: absent Qualified Code(s): R10.819 - Abdominal tenderness, unspecified site Condition: Stable Disposition: HOME, SELF-CARE Instructions: Abdominal Pain ([facility]), Intravenous (IV) Fluids ([facility]), Vomiting ( [facility]), Antinausea Medication ([facility]) Additional Instructions: Return immediately for any new or worsening symptoms Followup with your primary care provider, call tomorrow to make a followup appointment Follow-up with labor and delivery for labor check directly You may take Benadryl [id number] as directed to help with nausea Referrals: VICKI BECERRA MD [Primary Care Provider] - Follow up as needed
[2017-07-08 10:10] LABS: ABSOLUTE BASOPHILS # (AUTO) 0.1 10^3/uL (0.0-0.2); ABSOLUTE EOSINOPHILS # (AUTO) 0.1 10^3/uL (0.0-0.6); ABSOLUTE LYMPHOCYTES (AUTO) 2.1 10^3/uL (0.5-4.7); ABSOLUTE NEUT (AUTO) 8.5 10^3/uL (1.7-8.2); BASOPHILS % (AUTO) 0.5 % (0-2); EOSINOPHILS % (AUTO) 0.6 % (0-6); HEMATOCRIT 30.6 % (36.0-47.0); HEMOGLOBIN 10.3 g/dL (12.0-15.5); HGB HCT DIFFERENCE 0.3; LYMPHOCYTES % (AUTO) 17.7 % (13-45); MEAN CORPUSCULAR HEMOGLOBIN 29.3 pg (27.0-33.4); MEAN CORPUSCULAR HGB CONC 33.6 g/dL (32.0-36.0); MEAN CORPUSCULAR VOLUME 87 fl (80-97); MONOCYTES % (AUTO) 8.5 % (3-13); RED CELL DISTRIBUTION WIDTH 13.6 % (11.5-14.0); SEGMENTED NEUTROPHILS % (AUTO) 72.7 % (42-78); WHITE BLOOD COUNT 11.7 10^3/uL (4.0-10.5)
[2017-07-08 10:22] LABS: ALANINE AMINOTRANSFERASE 19 U/L (9-52); ALBUMIN 3.3 g/dL (3.5-5.0); ALKALINE PHOSPHATASE 92 U/L (38-126); ANION GAP 9 (5-19); ASPARTATE AMINO TRANSFERASE 21 U/L (14-36); BILIRUBIN,DIRECT 0.4 mg/dL (0.0-0.4); BILIRUBIN,TOTAL 0.9 mg/dL (0.2-1.3); BLOOD UREA NITROGEN 5 mg/dL (7-20); CALCIUM 8.8 mg/dL (8.4-10.2); CARBON DIOXIDE 19 mmol/L (22-30); CHLORIDE 108 mmol/L (98-107); CREATININE RESULT 0.42 mg/dL (0.52-1.25); GLUCOSE 84 mg/dL (75-110); LIPASE 32.5 U/L (23-300); POTASSIUM 4.2 mmol/L (3.6-5.0); SODIUM 136.1 mmol/L (137-145); TOTAL PROTEIN 6.2 g/dL (6.3-8.2)
[2017-07-08 10:28] LABS: AMORPHOUS SEDIMENT,URINE 2+ /HPF; APPEARANCE,URINE CLOUDY; BILIRUBIN,URINE NEGATIVE (NEGATIVE); GLUCOSE, URINE NEGATIVE (NEGATIVE); KETONES,URINE TRACE mg/dL (NEGATIVE); LEUKOCYTE ESTERASE,URINE NEGATIVE (NEGATIVE); NITRITE,URINE NEGATIVE (NEGATIVE); PROTEIN,URINE NEGATIVE (NEGATIVE); URINE SPECIFIC GRAVITY 1.024
[2017-07-08 13:33] VITALS: BP 106/64
== END 2017-07-08 13:38 | disposition home or self-care (01) ==
LOC: ER 08:50 → LC 08:50 → ER 08:50 → EDSTATUS 09:02 → ER 13:38
DX: O21.2 Late vomiting of pregnancy (principal); O26.893 Other specified pregnancy related conditions, third trimester; R10.817 Generalized abdominal tenderness; R63.0 Anorexia; R42 Dizziness and giddiness; Z3A.33 33 weeks gestation of pregnancy; Z88.5 Allergy status to narcotic agent
CPT/HCPCS: 99284; 96361; 96374; 96375; 36415; 83690; 85025; 80053; 81001; J1200; J2765; J7030

== ENCOUNTER 2017-07-08 13:41 | Outpatient (CLI) | payer MEDICAID | END 2017-07-08 14:39 | disposition home or self-care (01) | LOC: LC 13:41 | PROVIDERS: ATTEND Student in an Organized Health Care Education/Training Program | PROC: 4A1HXCZ Monitoring of Products of Conception, Cardiac Rate, External Approach (ICD-10-PCS; principal; 2017-07-08) | DX: O21.0 Mild hyperemesis gravidarum (principal); Z3A.33 33 weeks gestation of pregnancy | CPT/HCPCS: 59025 ==

== ENCOUNTER 2017-08-04 23:04 | Outpatient (CLI) | payer MEDICAID ==
--- NOTE | 2017-08-04 23:08 | Non Stress Test Report ---
Non Stress Test Datetime Report Generated by CPN: 08/04/2017 23:07 DEMOGRAPHIC Test Number: 1 EGA NST: 33.5 INDICATION Indication for Study: Ordered by Provider Indication for Study (NST) Other: LC MONITORING Monitor Explained: Monitor Explained; Test Explained; Patient Verbalized Understanding Time on Monitor: 07/08/2017 13:52 Time off Monitor: 07/08/2017 14:28 NST Duration: 36 NST INTERVENTIONS NST Interventions: PO Hydration NST Interventions Other: popsicle Physician Notified NST: J. Mensah, CNM BABY A: [id number] BABY A Movement : Present Contraction Frequency : 0 FHR Baseline : 120 Accelerations : 15X15 Decelerations : None Variability : Moderate 6-25bpm NST Review: Meets Criteria for Reactive NST NST Review and Verified By : THALIA ESPINOSA RN NST Results: Reactive NST REPORT Report Trigger: Send Report
[2017-08-04 23:40] LABS: APPEARANCE,URINE SLIGHTLY-CLOUDY; BILIRUBIN,URINE NEGATIVE (NEGATIVE); GLUCOSE, URINE NEGATIVE (NEGATIVE); KETONES,URINE NEGATIVE (NEGATIVE); LEUKOCYTE ESTERASE,URINE LARGE (NEGATIVE); NITRITE,URINE NEGATIVE (NEGATIVE); PROTEIN,URINE NEGATIVE (NEGATIVE); URINE SPECIFIC GRAVITY 1.016
[2017-08-04] MEDS ORDERED: ONDANSETRON 4 MG TAB.RAPDIS PO ONE (23:51)
[2017-08-04 23:58] LABS: URINE BARBITURATES SCREEN NEGATIVE; URINE METHADONE SCREEN NEGATIVE; URINE OPIATES LOW NEGATIVE; URINE PHENCYCLIDINE SCREEN NEGATIVE
[2017-08-04] MEDS ORDERED: ONDANSETRON 4 MG TAB.RAPDIS ONE (23:58)
== END 2017-08-05 00:42 | disposition home or self-care (01) ==
LOC: LC 23:04
PROVIDERS: ATTEND Specialist
PROC: 4A1HXCZ Monitoring of Products of Conception, Cardiac Rate, External Approach (ICD-10-PCS; principal; 2017-08-04)
DX: O47.1 False labor at or after 37 completed weeks of gestation (principal); Z3A.37 37 weeks gestation of pregnancy
CPT/HCPCS: 59025; 81005; 80307; S0119

== ENCOUNTER 2017-08-18 05:40 | Inpatient (IN) | payer MEDICAID ==
[2017-08-18] MEDS ORDERED: RINGERS SOLUTION,LACTATED 300 ML IV ONE (05:56)
[2017-08-18] MEDS ORDERED: OXYTOCIN/NORMAL SALINE 20 UNIT/1,000 ML RTUINJ IV PRN ×2 (05:56→14:00)
[2017-08-18] MEDS ORDERED: PENICILLIN G POTASSIUM 5,000,000 UNIT in DEXTROSE 5%-WATER 100 ML IV ONE (05:58)
[2017-08-18 06:24] LABS: APPEARANCE,URINE CLOUDY; BILIRUBIN,URINE NEGATIVE (NEGATIVE); GLUCOSE, URINE NEGATIVE (NEGATIVE); KETONES,URINE 80 mg/dL (NEGATIVE); LEUKOCYTE ESTERASE,URINE SMALL (NEGATIVE); NITRITE,URINE NEGATIVE (NEGATIVE); PROTEIN,URINE 30 mg/dL (NEGATIVE)
[2017-08-18 06:24] LABS: ABSOLUTE BASOPHILS # (AUTO) 0.1 10^3/uL (0.0-0.2); ABSOLUTE LYMPHOCYTES (AUTO) 1.9 10^3/uL (0.5-4.7); ABSOLUTE MONOCYTES (AUTO) 0.8 10^3/uL (0.1-1.4); ABSOLUTE NEUT (AUTO) 8.1 10^3/uL (1.7-8.2); BASOPHILS % (AUTO) 0.8 % (0-2); EOSINOPHILS % (AUTO) 0.4 % (0-6); HEMATOCRIT 29.1 % (36.0-47.0); HEMOGLOBIN 10.1 g/dL (12.0-15.5); HGB HCT DIFFERENCE 1.2; LYMPHOCYTES % (AUTO) 17.7 % (13-45); MEAN CORPUSCULAR HEMOGLOBIN 28.6 pg (27.0-33.4); MEAN CORPUSCULAR HGB CONC 34.6 g/dL (32.0-36.0); MEAN CORPUSCULAR VOLUME 83 fl (80-97); MONOCYTES % (AUTO) 7.5 % (3-13); RED BLOOD COUNT 3.53 10^6/uL (3.72-5.28); SEGMENTED NEUTROPHILS % (AUTO) 73.6 % (42-78)
[2017-08-18] MEDS ORDERED: OXYTOCIN/NORMAL SALINE 20 UNIT/1,000 ML RTUINJ ONE (06:26)
[2017-08-18] MEDS ORDERED: PENICILLIN G-K 5 MILLION UNIT VIAL ONE ×3 (06:26→10:20)
[2017-08-18] MEDS: RINGERS SOLUTION,LACTATED 1,000 ML IV PRN ×2 (06:32→09:35)
[2017-08-18] MEDS ORDERED: MISOPROSTOL 0.2 MG TABLET ONE ×2 (06:38→11:43)
[2017-08-18] MEDS ORDERED: LIDOCAINE 1% INJ-PF (10 MG/ML) 30 ML SDV ONE ×2 (06:38→11:43)
[2017-08-18] MEDS ORDERED: MAG HYDROX/AL HYDROX/SIMETH SUSP 30 ML UDCUP PO ONE (06:38)
[2017-08-18 06:40] LABS: URINE BARBITURATES SCREEN NEGATIVE; URINE METHADONE SCREEN NEGATIVE; URINE OPIATES LOW NEGATIVE; URINE PHENCYCLIDINE SCREEN NEGATIVE
[2017-08-18] MEDS ORDERED: MAG HYDROX/AL HYDROX/SIMETH SUSP 30 ML UDCUP ONE (06:43)
[2017-08-18] MEDS ORDERED: PENICILLIN G POTASSIUM 2,500,000 UNIT in DEXTROSE 5%-WATER 50 ML IV SCH (10:00)
[2017-08-18] MEDS ORDERED: PENICILLIN G-K 5 MILLION UNIT VIAL IV SCH (10:00)
--- NOTE | 2017-08-18 11:32 | L&D Progress Notes ---
PROGRESS NOTES Datetime Report Generated by CPN: 08/18/2017 11:32 PROGRESS NOTE Procedures: Artificial ROM Plan: Continue Present Management Vital Signs : Reviewed Comment: cont pit induction MEMBRANES Membranes: Ruptured FETUS A FHR Category: Category I SIGNATURE SIGNATURE: [id number] SIGNATURE: [id number] SIGNATURE: [id number] Signature: with User ID: [email or web address]
[2017-08-18] MEDS ORDERED: DIPH/PERTUSS(ACELL)/TETANUS VAC/PF 0.5 ML SYR (>=10YO) IM PRN ×2 (14:00→15:25)
[2017-08-18] MEDS ORDERED: IBUPROFEN 800 MG TABLET PO SCH (14:00)
[2017-08-18] MEDS ORDERED: ACETAMINOPHEN WITH CODEINE #3 TABLET PO PRN ×2 (14:00)
[2017-08-18] MEDS ORDERED: MEASLES,MUMPS&RUBELLA VACC/PF 0.5 ML VIAL SUBCUT PRN ×2 (14:00→15:25)
[2017-08-18] MEDS ORDERED: DIBUCAINE 1% OINTMENT 28 GM TP PRN ×2 (14:00→15:25)
[2017-08-18] MEDS ORDERED: ZOLPIDEM TARTRATE 5 MG TABLET PO PRN ×2 (14:00→15:25)
[2017-08-18] MEDS ORDERED: BENZOCAINE/MENTHOL AEROSOL SPRAY 56 ML TOP PRN ×2 (14:00→15:25)
[2017-08-18] MEDS ORDERED: IBUPROFEN 800 MG TABLET ONE (14:03)
[2017-08-18] MEDS ORDERED: OXYTOCIN/NORMAL SALINE 1,000 ML IV PRN (15:25)
--- NOTE | 2017-08-18 15:56 | Admission Physical ---
Datetime Report Generated by CPN: 08/18/2017 15:55 CURRENT ADMISSION Hx Assessment: The History has been Reviewed and is Current Chief Complaint: Scheduled Induction of Labor Indication for Induction- Other: h/o preciptous delivery, GBS+ Admit Plan: Initiate Labor Induction Protocol ALLERGIES Medication Allergies: Yes Medication Allergies: codeine (08/18/2017); oxycodone (08/18/2017); acetaminophen (08/18/2017) Medication Allergies: codeine (07/08/2017); oxycodone (07/08/2017); acetaminophen (07/08/2017) Medication Allergies: codeine (06/14/2017); oxycodone (06/14/2017); acetaminophen (06/14/2017) Medication Allergies: codeine (03/27/2017) Medication Allergies: No Known Allergies (08/22/2013) Latex: No Latex Allergies Food Allergies: N/A Environmental Allergies: N/A OBSTETRICAL HISTORY EDC: 08/21/2017 00:00 : 7 Para: 4 Term: 4 : 0 SAB: 2 IAB: 0 Ectopic: 0 Livin Cesareans: 0 VBACs: 0 Multiple Births: 0 Gestational Diabetes: No Rh Sensitization: No Incompetent Cervix: No NICK: No Infertility: No ART Treatment: No Uterine Anomaly: No IUGR: No Hx Previous C/S: No Macrosomia: No Hx Loss/Stillborn: No PIH: No Hx : No Placenta Previa/Abruption: No Depression/PP Depression: Yes PTL/PROM: No Post Hemorrhage: No Current Procedures: Ultrasound; NST Obstetrical History Comments: G1 - 1998 39 wks, girl G2 - 2005 41 wks, girl G3 - 2011 SAB G4 - 2012 41.1 wks, boy G5 - 2013 SAB G6 - 2014 39.5 wks, boy G7 - Current boy SEE RECORDS Alcohol: No Marijuana : No Cocaine: No Other Illicit Drugs: No Cigarettes: Never Smoker. 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 Heart Disease: No Hosp/Surgery: Yes Autoimmune Disorder: No Anesthetic Complications: No Kidney Disease: No Abnormal Pap Smear: Yes Neuro/Epilepsy: No Psychiatric Disorders: Yes Other Medical Diseases: No Hepatitis/Liver Disease: No Significant Family History: No Varicosities/Phlebitis: No Trauma/Violence : No Thyroid Dysfunction: No Medical History Comments: ADHD, Depression, PID INFECTIOUS HISTORY Gonorrhea: No Genital Herpes: No Chlamydia: No Tuberculosis: No Syphilis: No Hepatitis: No HIV/AIDS Exposure: No Rash or Viral Illness: No HPV: No PHYSICAL EXAM General: Normal HEENT: Normal Neurologic: Normal Thyroid: Normal Heart: Normal Lungs: Normal Breast: Normal Back: Normal Abdomen: Normal Genitourinary Exam: Normal Extremities: Normal DTRs: Normal Pelvic Type: Adequate Physical Exam Comments: efw 8 pounds MEMBRANES Membranes: Ruptured FETUS A EGA: 39.4 Monitoring: External US FHR Category: Category I Admit Comment: pit induction, gbs prophylaxis PLANS FOR LABOR AND DELIVERY Labor and Delivery: None Pain Management: Natural Feeding Preference: Both Benefit of Breast Feed Discussed: Yes Circumcision: Yes INFORMED CONSENT Signature: with User ID: [email or web address]
[2017-08-18] MEDS: FERROUS SULFATE 325 MG TABLET PO SCH (17:03)
[2017-08-18] MEDS: DOCUSATE SODIUM 100 MG CAPSULE PO SCH (17:04)
[2017-08-18] MEDS ORDERED: FERROUS SULFATE 325 MG TABLET PO SCH (18:00)
[2017-08-18] MEDS ORDERED: DOCUSATE SODIUM 100 MG CAPSULE PO SCH (18:00)
[2017-08-18] MEDS ORDERED: HYDROCODONE/ACETAMINOPHEN 5-325 MG TABLET PO PRN (19:27)
[2017-08-18] MEDS ORDERED: DIPHENHYDRAMINE HCL 50 MG/ML VIAL IV PRN (19:37)
[2017-08-18] MEDS: HYDROCODONE/ACETAMINOPHEN 5-325 MG TABLET PO PRN (20:30)
[2017-08-18] MEDS: IBUPROFEN 800 MG TABLET PO SCH (21:08)
[2017-08-19] MEDS: HYDROCODONE/ACETAMINOPHEN 5-325 MG TABLET PO PRN ×3 (03:54→17:52)
[2017-08-19] MEDS: IBUPROFEN 800 MG TABLET PO SCH ×3 (05:09→21:28)
[2017-08-19 07:11] LABS: HEMATOCRIT 27.4 % (36.0-47.0); HEMOGLOBIN 8.9 g/dL (12.0-15.5); HGB HCT DIFFERENCE -0.7; MEAN CORPUSCULAR HEMOGLOBIN 27.1 pg (27.0-33.4); MEAN CORPUSCULAR HGB CONC 32.6 g/dL (32.0-36.0); MEAN CORPUSCULAR VOLUME 83 fl (80-97); RED BLOOD COUNT 3.29 10^6/uL (3.72-5.28); RED CELL DISTRIBUTION WIDTH 14.7 % (11.5-14.0); WHITE BLOOD COUNT 12.1 10^3/uL (4.0-10.5)
--- NOTE | 2017-08-19 09:05 | PDOC PROGRESS REPORT ---
Subjective-OB Subjective: Post Delivery Day: 32 year old. Denies any needs at this time Doing well, no c/o, breast/bottle feeding Physical Exam (OB) Vital Signs: Temp Pulse Resp BP Pulse Ox 98.1 F 86 18 117/74 99 08/19/17 08:14 08/19/17 08:14 08/19/17 08:14 08/19/17 08:14 08/19/17 08:14 Intake & Output 08/18/17 08/19/17 08/20/17 06:59 06:59 06:59 Weight 94.5 kg - Lochia Lochia Amount: Scant < 10 ml Lochia Color: Rubra/Red - Abdomen Description: Soft Hernia Present: No Fundal Description: Firm, Midline Fundal Height: u/u - u/2 Objective-Diagnostic Laboratory: 08/19/17 06:59 08/19/17 06:59 WBC 12.1 H RBC 3.29 L Hgb 8.9 L Hct 27.4 L MCV 83 MCH 27.1 MCHC 32.6 RDW 14.7 H Plt Count 263 Assessment and Plan(PN) - Assessment and Plan (1) GBS (group B Streptococcus carrier), +RV culture, currently Is this a current diagnosis for this admission?: Yes (2) Anemia Qualifiers: Anemia type: iron deficiency Is this a current diagnosis for this admission?: Yes (3) Delivery normal Is this a current diagnosis for this admission?: Yes - Time Spent with Patient Time with patient: Less than 15 minutes Medications reviewed and adjusted accordingly: Yes - Disposition Anticipated Discharge: Home Within: within 24 hours
[2017-08-19] MEDS: SENNOSIDES/DOCUSATE 8.6-50 MG 1 EACH TABLET PO SCH (09:09)
[2017-08-19] MEDS: FERROUS SULFATE 325 MG TABLET PO SCH ×2 (09:10→17:53)
[2017-08-19] MEDS: PRENATAL VITAMIN W-O CA NO5/FE FUMARATE/FA CAPSULE PO SCH (09:11)
[2017-08-19] MEDS: DOCUSATE SODIUM 100 MG CAPSULE PO SCH ×2 (09:11→17:53)
[2017-08-19] MEDS ORDERED: PRENATAL VITAMIN W-O CA NO5/FE FUMARATE/FA CAPSULE PO SCH (10:00)
[2017-08-19] MEDS ORDERED: SENNOSIDES/DOCUSATE 8.6-50 MG 1 EACH TABLET PO SCH (10:00)
[2017-08-20] MEDS: IBUPROFEN 800 MG TABLET PO SCH (05:52)
[2017-08-20 08:49] VITALS: BP 119/89
--- NOTE | 2017-08-20 09:07 | PDOC DISCHARGE SUMMARY ---
Final Diagnosis Discharge Date: 08/20/17 Discharge Data - Discharge Medication Home Medications: Multivitamins W-Iron [Flintstones Chewable Multivit W/Fe Tab] 1 tab.chew PO DAILY 06/14/17 Docusate Sodium [Colace 100 mg Capsule] 100 mg PO BID #60 capsule 08/20/17 Ferrous Sulfate [Feosol 325 mg Tablet] 325 mg PO BID #60 tablet 08/20/17 Ibuprofen [Motrin 800 mg Tablet] 800 mg PO Q8 #60 tablet 08/20/17 Gestational Age: 39.4 Reason(s) for Admission: Induction of Labor, Group B Strep Positive Procedures: NST Intrapartum Procedure(s): Spontaneous Vaginal Delivery - Data Baby 1 Male at 1 minute: 9 at 5 minutes: 9 Weight: 3485 kg Home with Mother: Yes Complications: No - Diagnosis Test Laboratory: Temp Pulse Resp BP Pulse Ox 98 F 76 16 119/89 H 100 08/20/17 08:48 08/20/17 08:48 08/20/17 08:48 08/20/17 08:48 08/20/17 08:48 08/18/17 08/18/17 08/19/17 05:52 06:10 06:59 RBC 3.53 L 3.29 L Hgb 10.1 L 8.9 L Hct 29.1 L 27.4 L Urine Opiates Screen NEGATIVE - Discharge information/Instructions Discharge Activity: Activity As Tolerated, Pelvic Rest, No tub bath Discharge Diet: Regular Disposition: HOME, SELF-CARE Follow up with: [facility] in: 1, Weeks - hx adhd and depression
[2017-08-20] MEDS: SENNOSIDES/DOCUSATE 8.6-50 MG 1 EACH TABLET PO SCH (10:23)
[2017-08-20] MEDS: PRENATAL VITAMIN W-O CA NO5/FE FUMARATE/FA CAPSULE PO SCH (10:24)
[2017-08-20] MEDS: FERROUS SULFATE 325 MG TABLET PO SCH (10:24)
[2017-08-20] MEDS: DOCUSATE SODIUM 100 MG CAPSULE PO SCH (10:24)
--- NOTE | 2017-08-23 09:52 | Delivery Summary ---
Del Sum A-C Datetime Report Generated by CPN: 08/23/2017 09:52 DELIVERY PERSONNEL DELIVERY PERSONNEL: [id number] Delivery Doctor:: Jeanntete Calderon MD Labor and Delivery Nurse:: Lissett Martinez RNC Labor and Delivery Nurse:: JEVON Aldana Die Cast Supervisor/SKIP MINER BLASTING: Laura Stephenson, SKIP MINER BLASTING II MATERNAL INFORMATION Delivery Anesthesia: None Medications After Delivery: Pitocin Bolus-Please Comment Meds After Delivery Comment: Pitocin 20 units in 1000 ml nss open for bolus Estimated Blood Loss (ml): 150 Maternal Complications: Precipitous Labor (<3hrs); Other Provider Comments: Pt progressed to over intact perineum of male with apgars 9 and 9. Head delivered OA. SHoulders and body delivered easily. BILLING ASSISTANT and OP bulb suctioned. Cord clamped and cut. Placenta spont and intact. Mom and baby doing well. LABOR SUMMARY EDC: 08/21/2017 00:00 No. Babies in Womb: 1 Attempted: No Labor Anesthesia: None LABOR INFORMATION Reason for Induction: Other Reason for Induction- Other: h/o precipitous delivery, gbs + Onset of Labor: 08/18/2017 13:20 Complete Dilatation: 08/18/2017 13:41 Oxytocin: Induction Group B Beta Strep: positive Antibiotics # of Doses: 2 Antibiotics Time of Last Dose: 1019 Name of Antibiotic Given: Penicillin Steroids Given: None Reason Steroids Not Administered: Not Applicable MEMBRANES Membranes Rupture Method: Artificial Rupture of Membranes: 08/18/2017 11:27 Length of Rupture (hr): 2.33 Amniotic Fluid Color: Clear Amniotic Fluid Amount: Moderate Amniotic Fluid Amount: None Amniotic Fluid Odor: Normal STAGES OF LABOR Stage 1 hr: 0 Stage 1 min: 21 Stage 2 hr: 0 Stage 2 min: 6 Stage 3 hr: 0 Stage 3 min: 3 Total Time in Labor hr: 0 Total Time in Labor min: 30 VAGINAL DELIVERY Episiotomy: None Laceration Extension: N/A Laceration Type: None Laceration Repair: Not Applicable Sponge Count Correct: N/A Sharps Count Correct: N/A CSECTION DELIVERY Primary Indication: N/A Secondary Indication: N/A CSection Incidence: N/A Labor: N/A Elective: N/A CSection Incision: N/A BABY A INFORMATION Infant Delivery Date/Time: 08/18/2017 13:47 Method of Delivery: Vaginal Born in Route : No (Annotations: Data stored by [facility] on behalf of user) : N/A Forceps: N/A Vacuum Extraction: N/A Shoulder Dystocia : No PRESENTATION/POSITION BABY A Presentation: Cephalic Cephalic Presentation: Vertex Vertex Position: Right Occipital Anterior Breech Presentation: N/A PLACENTA INFORMATION BABY A Placenta Delivery Time : 08/18/2017 13:50 Placenta Method of Delivery: Spontaneous Placenta Status: Delivered SCORES BABY A Heart Rate 1 min: >100 bpm Resp Effort 1 min: Good Cry Reflex Irritability 1 min: Cough or Sneeze or Pulls Away Muscle Tone 1 min: Active Motion Color 1 min: Body Anon Raices, Extremities Blue Resuscitation Effort 1 min: Tactile Stimulation SCORE 1 MIN: 9 Heart Rate 5 min: >100 bpm Resp Effort 5 min: Good Cry Reflex Irritability 5 min: Cough or Sneeze or Pulls Away Muscle Tone 5 min: Active Motion Color 5 min: Body Anon Raices, Extremities Blue Resuscitation Effort 5 min: N/A SCORE 5 MIN: 9 Resuscitation Effort 10 min: N/A INFORMATION BABY A Gestational Age at Delivery: 39.4 Gestational Status: Full Term- 39- 40.6 Weeks Infant Outcome : Liveborn Condition : Stable Sex: Male Infant Sex: Male IDENTIFICATION BABY A Infant Verification Date/Time: 08/18/2017 14:11 ID Band Number: [id number] Mother's Name Verified: Yes RN Verifying : Katty Chew, RN Additional Verifying Personnel: Hannah rBanham, RN WEIGHT/LENGTH BABY A Infant Birthweight (gm): 3485 Infant Weight (lb): 7 Weight (oz): 11 Infant Length (in): 20.00 Length (cm): 50.80 CORD INFORMATION BABY A No. Cord Vessels: 3 Nuchal Cord : N/A Cord Blood Taken: Yes-For Eval (Mom's Blood Type - or O+) Suction: None ASSESSMENT BABY A Infant Complications: None Physical Findings at Delivery: Caput Succedaneum Respirations: Appears Normal Skin to Skin: Yes Skin to Skin: Yes Skin to Skin Time (min): 35 Skin to Skin Time (min): 45 Clerical Coordinator/ALS Called : No Infant Care By: D Yonas [facility] Transferred To: Remains with Mother SIGNATURES Signature: with User ID: [email or web address]
== END 2017-08-20 14:33 | disposition home or self-care (01) | DRG 775 ==
LOC: LR 05:40 → 2S 15:54
PROVIDERS: ADMIT Specialist; ATTEND Specialist
PROC: 10E0XZZ Delivery of Products of Conception, External Approach (ICD-10-PCS; principal; 2017-08-18)
PROC: 4A1HXCZ Monitoring of Products of Conception, Cardiac Rate, External Approach (ICD-10-PCS; 2017-08-18)
PROC: 10907ZC Drainage of Amniotic Fluid, Therapeutic from Products of Conception, Via Natural or Artificial Opening (ICD-10-PCS; 2017-08-18)
PROC: 3E0234Z Introduction of Serum, Toxoid and Vaccine into Muscle, Percutaneous Approach (ICD-10-PCS; 2017-08-19)
DX: O62.3 Precipitate labor (principal); O99.824 Streptococcus B carrier state complicating childbirth; O99.344 Other mental disorders complicating childbirth; F32.9 Major depressive disorder, single episode, unspecified; F90.9 Attention-deficit hyperactivity disorder, unspecified type; D50.9 Iron deficiency anemia, unspecified; O26.893 Other specified pregnancy related conditions, third trimester; Z67.41 Type O blood, Rh negative; O99.02 Anemia complicating childbirth; Z3A.39 39 weeks gestation of pregnancy; Z37.0 Single live birth; Z88.6 Allergy status to analgesic agent; Z3A.00 Weeks of gestation of pregnancy not specified
CPT/HCPCS: 36415; 80307; 81005; 85025; 85027; 85461; 86592; 86850; 86900; 86901; J2540; J2590; J2790; J3490

== ENCOUNTER 2018-08-27 12:25 | Emergency (ER) | payer MEDICAID ==
[2018-08-27] MEDS ORDERED: KETOROLAC TROMETHAMINE 60 MG/2 ML SDV IM ONE (12:51)
--- NOTE | 2018-08-27 12:54 | ER Document Report ---
ED ENT - General Chief Complaint: Difficulty Swallowing Stated Complaint: SORE THROAT Time Seen by Provider: 08/27/18 12:50 Mode of Arrival: Ambulatory Information source: Patient Notes: Chief complaint: Sore throat History of complain:( obtained from----patient) 33 years old female presents today with 3-day history of sore throat, dry cough. She was seen at the urgent care, she was given 1 g of Rocephin IM, strep test was done which was reported as negative subsequently referred to the ED for possible retropharyngeal abscess. To be evaluated. Patient has no difficulty in breathing, denies any chills. Denies any nausea vomiting. Denies any other constitutional symptoms. Onset: 3 days gradually Duration: 3 days Severity: Moderate Quality: Sharp Context: Possible pharyngeal infection Exacerbating factor and relieving factors: Talking REVIEW OF SYSTEMS: CONSTITUTIONAL : Denies fever, chills, or sweats. Denies recent illness. EENT: Denies eye, ear, throat, or mouth pain or symptoms. Denies nasal or sinus congestion or discharge. Denies throat, tongue, or mouth swelling or difficulty swallowing. CARDIOVASCULAR: Denies chest pain. Denies palpitations or racing or irregular heart beat. Denies ankle edema. RESPIRATORY: Denies cough, cold, or chest congestion. Denies shortness of breath, difficulty breathing, or wheezing. GASTROINTESTINAL: Denies distention. Denies nausea, vomiting, or diarrhea. Denies blood in vomitus, stools, or per rectum. Denies black, tarry stools. Denies constipation. GENITOURINARY: Denies difficulty urinating, painful urination, burning, frequency, blood in urine, or discharge. FEMALE GENITOURINARY: Denies vaginal bleeding, heavy or abnormal periods, irregular periods. Denies vaginal discharge or odor. MUSCULOSKELETAL: Denies back or neck pain or stiffness. Denies joint pain or swelling. SKIN: Denies rash, lesions or sores. HEMATOLOGIC : Denies easy bruising or bleeding. LYMPHATIC: Denies swollen, enlarged glands. NEUROLOGICAL: Denies confusion or altered mental status. Denies passing out or loss of consciousness. Denies dizziness or lightheadedness. Denies headache. Denies weakness or paralysis or loss of use of either side. Denies problems with gait or speech. Denies sensory loss, numbness, or tingling. Denies seizures. PSYCHIATRIC: Denies anxiety or stress. Denies depression, suicidal ideation, or homicidal ideation. ALL OTHER SYSTEMS REVIEWED AND NEGATIVE. PHYSICAL EXAMINATION: GENERAL: Well-appearing, well-nourished and in no acute distress. HEAD: Atraumatic, normocephalic. EYES: Pupils equal round and reactive to light, extraocular movements intact, conjunctiva are normal. ENT: Nares patent, oropharynx tonsillar enlargement and erythema, with exudates. Moist mucous membranes. NECK: Normal range of motion, supple without lymphadenopathy. LUNGS: Breath sounds clear to auscultation bilaterally and equal. No wheezes rales or rhonchi. HEART: Regular rate and rhythm without murmurs ABDOMEN: Soft, nontender, nondistended abdomen. No guarding, no rebound. No masses appreciated. Examination of genitals-deferred Musculoskeletal: Normal range of motion, no pitting or edema. No cyanosis. NEUROLOGICAL: Cranial nerves grossly intact. Normal speech, normal gait. Normal sensory, motor exams PSYCH: Normal mood, normal affect. SKIN: Warm, Dry, normal turgor, no rashes or lesions noted. Dictation was performed using ust[employer] voice recognition software TRAVEL OUTSIDE OF THE [place] IN LAST 30 DAYS: No - HPI Notes: Dictated - Related Data Allergies/Adverse Reactions: acetaminophen [From Percocet] Allergy (Verified 08/27/18 12:25) codeine Allergy (Verified 08/27/18 12:25) oxycodone [From Percocet] Allergy (Verified 08/27/18 12:25) Past Medical History - Social History Smoking Status: Never Smoker Frequency of alcohol use: Rare Drug Abuse: None Lives with: Family Family History: None, Reviewed & Not Pertinent Pulmonary Medical History: Reports: Hx Bronchitis Neurological Medical History: Reports: Hx Migraine Renal/ Medical History: Denies: Hx Peritoneal Dialysis Past Surgical History: Reports: Hx Cholecystectomy - Immunizations Hx Diphtheria, Pertussis, Tetanus Vaccination: Yes - received in 04/2012 per pt Review of Systems - Review of Systems Notes: Dictated Physical Exam - Vital signs Vitals: Temp Pulse Resp BP Pulse Ox 98.2 F 74 14 120/67 98 08/27/18 12:30 08/27/18 12:30 08/27/18 12:30 08/27/18 12:30 08/27/18 12:30 - Notes Notes: Dictated Course - Vital Signs Vital signs: Temp Pulse Resp BP Pulse Ox 98.2 F 74 14 120/67 98 08/27/18 12:30 08/27/18 12:30 08/27/18 12:30 08/27/18 12:30 08/27/18 12:30 Discharge - Discharge Clinical Impression: Pharyngotonsillitis Condition: Fair Disposition: HOME, SELF-CARE Instructions: Tonsillitis ([facility]) Prescriptions: Amoxicillin 1 tab PO TID #30 tab Prednisone 20 mg PO DAILY #3 tablet Referrals: PITA LUND MD [Primary Care Provider] - Follow up as needed
[2018-08-27] MEDS: PREDNISONE 20 MG TABLET PO ONE ×2 (13:00→13:36)
[2018-08-27 15:02] VITALS: BP 122/81
== END 2018-08-27 15:04 | disposition home or self-care (01) ==
LOC: ER 12:25
DX: J03.90 Acute tonsillitis, unspecified (principal); R05 Cough; Z88.6 Allergy status to analgesic agent; Z88.5 Allergy status to narcotic agent
CPT/HCPCS: 99283; 96372; 36415; 86308; J1885; J7512

== ENCOUNTER → 2019-02-17 | Outpatient (CLI) | payer MEDICAID ==
[2019-02-17 13:45] LABS: APPEARANCE,URINE SLIGHTLY-CLOUDY; BILIRUBIN,URINE NEGATIVE (NEGATIVE); COLOR,URINE YELLOW; GLUCOSE, URINE NEGATIVE (NEGATIVE); KETONES,URINE NEGATIVE (NEGATIVE); LEUKOCYTE ESTERASE,URINE SMALL (NEGATIVE); NITRITE,URINE NEGATIVE (NEGATIVE); PROTEIN,URINE NEGATIVE (NEGATIVE); URINE SPECIFIC GRAVITY 1.016; UROBILINOGEN,URINE NEGATIVE mg/dL (<2.0)
== END ==
LOC: OD 11:13
PROVIDERS: ATTEND Nurse Practitioner Family
DX: R35.0 Frequency of micturition (principal)
CPT/HCPCS: 81001; 87086; 87088; 87186

== ENCOUNTER 2019-02-21 08:49 | Emergency (ER) | payer MEDICAID ==
--- NOTE | 2019-02-21 09:27 | ER Document Report ---
ED Medical Screen (RME) - General Chief Complaint: Vaginal Bleeding Stated Complaint: VAGINAL BLEEDING Time Seen by Provider: 02/21/19 09:20 Primary Care Provider: JAMEY HAQ NP [Primary Care Provider] - Follow up as needed Notes: Patient is a 34-year-old female that presents to the emergency department for chief complaint of vaginal bleeding. Patient reports that she is been having vaginal bleeding and was every other day since the beginning of December, she states her last normal menstrual period was back in November. She states it is possible that she is but she is not entirely sure she has not taken a home test. Is not on oral contraceptive pills or other forms of control. She does see ETHNOLOGY TEACHER, but has not seen him for this particular issue. She denies having any pelvic pain or dysuria.. ROS: Other than noted above, the 12 point review of systems was reviewed with the patient and were negative, all pertinent findings are included in the HPI. PHYSICAL EXAMINATION: Vital signs reviewed. GENERAL: Well-appearing, well-nourished and in no acute distress. HEAD: Atraumatic, normocephalic. EYES: Pupils equal round extraocular movements intact, conjunctiva are normal. ENT: Nares patent NECK: Normal range of motion CV: Heart regular rate and rhythm LUNGS: No respiratory distress Musculoskeletal: Normal range of motion NEUROLOGICAL: Normal speech PSYCH: Normal mood, normal affect. MDM: Patient seen and examined for rapid initial assessment. Vital signs reviewed. A comprehensive ED assessment and evaluation of the patient, analysis of test results and completion of the medical decision making process will be conducted by additional ED providers. *Note is created using voice recognition software and may contain spelling, syntax or grammatical errors. TRAVEL OUTSIDE OF THE [place] IN LAST 30 DAYS: No - Related Data Allergies/Adverse Reactions: acetaminophen [From Percocet] Allergy (Verified 08/27/18 12:25) codeine Allergy (Verified 08/27/18 12:25) oxycodone [From Percocet] Allergy (Verified 08/27/18 12:25) Past Medical History - General Last Menstrual Period: Jan 02 - Social History Chew tobacco use (# tins/day): No Frequency of alcohol use: None Drug Abuse: None Family history: Reviewed & Not Pertinent Pulmonary Medical History: Reports: Hx Bronchitis Neurological Medical History: Reports: Hx Migraine Renal/ Medical History: Denies: Hx Peritoneal Dialysis Past Surgical History: Reports: Hx Cholecystectomy - Immunizations Hx Diphtheria, Pertussis, Tetanus Vaccination: Yes - received in 04/2012 per pt Physical Exam - Vital signs Vitals: Temp Pulse Resp BP Pulse Ox 97.7 F 87 18 138/72 H 96 02/21/19 08:51 02/21/19 08:51 02/21/19 08:51 02/21/19 08:51 02/21/19 08:51 Course - Vital Signs Vital signs: Temp Pulse Resp BP Pulse Ox 97.7 F 87 18 138/72 H 96 02/21/19 08:51 02/21/19 08:51 02/21/19 08:51 02/21/19 08:51 02/21/19 08:51 Doctor's Discharge - Discharge Referrals: JAMEY HAQ LIBRARY TECHNOLOGY INSTRUCTOR [Primary Care Provider] - Follow up as needed
[2019-02-21 09:50] LABS: ABSOLUTE EOSINOPHILS # (AUTO) 0.1 10^3/uL (0.0-0.6); ABSOLUTE MONOCYTES (AUTO) 0.7 10^3/uL (0.1-1.4); ABSOLUTE NEUT (AUTO) 4.7 10^3/uL (1.7-8.2); BASOPHILS % (AUTO) 0.5 % (0-2); EOSINOPHILS % (AUTO) 0.9 % (0-6); HEMATOCRIT 39.2 % (36.0-47.0); HEMOGLOBIN 13.1 g/dL (12.0-15.5); LYMPHOCYTES % (AUTO) 26.5 % (13-45); MEAN CORPUSCULAR HGB CONC 33.5 g/dL (32.0-36.0); MEAN CORPUSCULAR VOLUME 87 fl (80-97); MONOCYTES % (AUTO) 8.9 % (3-13); PLATELET COUNT 249 10^3/uL (150-450); RED BLOOD COUNT 4.53 10^6/uL (3.72-5.28); RED CELL DISTRIBUTION WIDTH 15.6 % (11.5-14.0); SEGMENTED NEUTROPHILS % (AUTO) 63.2 % (42-78); TOTAL CELLS COUNTED % (AUTO) 100 %; WHITE BLOOD COUNT 7.5 10^3/uL (4.0-10.5)
[2019-02-21 10:00] LABS: APPEARANCE,URINE CLOUDY; BILIRUBIN,URINE NEGATIVE (NEGATIVE); COLOR,URINE AMBER; GLUCOSE, URINE NEGATIVE (NEGATIVE); KETONES,URINE NEGATIVE (NEGATIVE); LEUKOCYTE ESTERASE,URINE MODERATE (NEGATIVE); NITRITE,URINE NEGATIVE (NEGATIVE); PROTEIN,URINE 100 mg/dL (NEGATIVE); URINE SPECIFIC GRAVITY 1.013; UROBILINOGEN,URINE NEGATIVE mg/dL (<2.0)
[2019-02-21 11:11] LABS: BACTERIA (WET MOUNT) 4+ BACTERIA SEEN; EPITHELIALS (WET MOUNT) 4+ EPITHELIALS SEEN; RBCS (WET MOUNT) 4+ RBCS SEEN; T.VAGINALIS (WET MOUNT) NO TRICHOMONAS SEEN; WBCS (WET MOUNT) 3+ WBCS SEEN; YEAST (WET MOUNT) NO YEAST SEEN
--- NOTE | 2019-02-21 11:32 | RADIOLOGY REPORT (SQ) ---
EXAM DESCRIPTION: U/S NON OB PEL TV W/DOPPLER COMPLETED DATE/TIME: 02/21/2019 11:26 am REASON FOR STUDY: vaginal bleeding COMPARISON: None. TECHNIQUE: Dynamic and static grayscale images acquired of the pelvis via transvaginal approach and recorded on PACS. Additional selected color Doppler and spectral images recorded. LIMITATIONS: None. FINDINGS: UTERUS: Contour normal. No mass. ENDOMETRIAL STRIPE: No focal or generalized thickening. No masses. There is fluid within the endomet rial canal. CERVIX: No nabothian cysts. RIGHT OVARY AND DOPPLER: There is a 3.9 x 3.2 x 3.4 cm cyst in the right ovary. Normal flow. LEFT OVARY AND DOPPLER: Normal size. No worrisome masses. Normal arterial vascular flow without evide nce for torsion. FREE FLUID: There is a small amount of free fluid in the cul de sac. OTHER: No other significant finding. MEASUREMENTS: UTERUS: 8.3 x 5.9 x 4.1 cm. ENDOMETRIAL STRIPE: 3.1 mm. RIGHT OVARY: 4.8 x 3.8 x 4.1 cm. LEFT OVARY: 2.8 x 1.5 x 1.5 cm. IMPRESSION: Small right ovarian cyst measured 3.9 x 3.2 x 3.4 cm. Small amount of free fluid in the cul-de-sac. TECHNICAL DOCUMENTATION: JOB ID: [id number] [employer]- All Rights Reserved Rev-04/15 Reading location - IP/workstation name: [email or web address]
[2019-02-21 12:36] LABS: CHLAM PCR NOT DETECTED (NOT DETECT); GON PCR NOT DETECTED (NOT DETECT)
--- NOTE | 2019-02-21 12:53 | ER Document Report ---
ED General - General Chief Complaint: Vaginal Bleeding Stated Complaint: VAGINAL BLEEDING Time Seen by Provider: 02/21/19 09:20 Primary Care Provider: JAMEY HAQ NP [NO LOCAL MD] - Follow up as needed TRAVEL OUTSIDE OF THE [place] IN LAST 30 DAYS: No - HPI Patient complains to provider of: Vaginal bleeding Notes: Patient here for vaginal bleeding. Patient was seen by provider in triage his notes provided below Patient is a 34-year-old female that presents to the emergency department for chief complaint of vaginal bleeding. Patient reports that she is been having vaginal bleeding and was every other day since the beginning of December, she states her last normal menstrual period was back in November. She states it is possible that she is but she is not entirely sure she has not taken a home test. Is not on oral contraceptive pills or other forms of control. She does see ENVIRONMENTAL MANAGEMENT SPECIALIST, but has not seen him for this particular issue. She denies having any pelvic pain or dysuria.. Patient agrees with the above statements. Has no other information to add. Denies any fever chills nausea vomiting diarrhea abdominal pain states she is in a monogamous relationship no vaginal discharge. Only spotting at this time not requiring tampons or pads - Related Data Allergies/Adverse Reactions: acetaminophen [From Percocet] Allergy (Verified 02/21/19 09:48) codeine Allergy (Verified 02/21/19 09:48) oxycodone [From Percocet] Allergy (Verified 02/21/19 09:48) Past Medical History - General Last Menstrual Period: Jan 02 - Social History Smoking Status: Never Smoker Chew tobacco use (# tins/day): No Frequency of alcohol use: None Drug Abuse: None Family History: None, Reviewed & Not Pertinent Patient has suicidal ideation: No Patient has homicidal ideation: No Pulmonary Medical History: Reports: Hx Bronchitis Neurological Medical History: Reports: Hx Migraine Renal/ Medical History: Denies: Hx Peritoneal Dialysis Past Surgical History: Reports: Hx Cholecystectomy - Immunizations Hx Diphtheria, Pertussis, Tetanus Vaccination: Yes - received in 04/2012 per pt Review of Systems - Review of Systems Constitutional: No symptoms reported EENT: No symptoms reported Cardiovascular: No symptoms reported Respiratory: No symptoms reported Gastrointestinal: No symptoms reported Genitourinary: No symptoms reported Female Genitourinary: Vaginal bleeding Musculoskeletal: No symptoms reported Skin: No symptoms reported Hematologic/Lymphatic: No symptoms reported Neurological/Psychological: No symptoms reported -: Yes All other systems reviewed and negative Physical Exam - Vital signs Vitals: Temp Pulse Resp BP Pulse Ox 97.7 F 87 18 138/72 H 96 02/21/19 08:51 02/21/19 08:51 02/21/19 08:51 02/21/19 08:51 02/21/19 08:51 Interpretation: Normal - General General appearance: Appears well, Alert - HEENT Head: Normocephalic, Atraumatic Eyes: Normal Pupils: PERRL - Respiratory Respiratory status: No respiratory distress Chest status: Nontender Breath sounds: Normal Chest palpation: Normal - Cardiovascular Rhythm: Regular Heart sounds: Normal auscultation Murmur: No - Abdominal Inspection: Normal Distension: No distension Bowel sounds: Normal Tenderness: Nontender Organomegaly: No organomegaly - Genitourinary External exam: Normal Speculum exam: Normal Vaginal bleeding: Mild Bimanuel exam: Normal Notes: No tenderness elicited no lumps or bumps on bimanual exam - Back Back: Normal, Nontender - Extremities General upper extremity: Normal inspection, Nontender, Normal color, Normal ROM, Normal temperature General lower extremity: Normal inspection, Nontender, Normal color, Normal ROM, Normal temperature, Normal weight bearing. No: Duncan's sign - Neurological Neuro grossly intact: Yes Cognition: Normal Orientation: AAOx4 [place] Coma Scale Eye Opening: Spontaneous [place] Coma Scale Verbal: Oriented [place] Coma Scale Motor: Obeys Commands [place] Coma Scale Total: 15 Speech: Normal Motor strength normal: LUE, RUE, LLE, RLE Sensory: Normal - Psychological Associated symptoms: Normal affect, Normal mood - Skin Skin Temperature: Warm Skin Moisture: Dry Skin Color: Normal Course - Re-evaluation Re-evalutation: 02/21/19 13:43 Ultrasound only showed a right ovarian cyst no other critical pathology seen. Did encourage patient to follow-up with ENVIRONMENTAL MANAGEMENT SPECIALIST for further evaluation of her vaginal bleeding and possible treatment with contraceptives. Patient states understanding will be discharged home - Vital Signs Vital signs: Temp Pulse Resp BP Pulse Ox 97.7 F 71 16 121/80 98 02/21/19 08:51 02/21/19 13:11 02/21/19 13:11 02/21/19 13:11 02/21/19 13:11 - Laboratory Result Diagrams: 02/21/19 09:33 Laboratory results interpreted by me: 02/21/19 02/21/19 09:33 09:33 RDW 15.6 H Urine Protein 100 H Urine Blood LARGE H Ur Leukocyte Esterase MODERATE H Discharge - Discharge Clinical Impression: Dysfunctional uterine bleeding, Right ovarian cyst Disposition: HOME, SELF-CARE Instructions: Dysfunctional Uterine Bleeding ([facility]), Ovarian Cyst ([facility]) Additional Instructions: Your laboratory studies and ultrasound not show any critical pathology at this time. I would highly recommend she follow-up with your ENVIRONMENTAL MANAGEMENT SPECIALIST for further evaluation of your vaginal bleeding. Return to the ER if any symptoms worsen. Referrals: JAMEY HAQ NP [NO LOCAL MD] - Follow up as needed
[2019-02-21 13:13] VITALS: BP 121/80
== END 2019-02-21 13:13 | disposition home or self-care (01) ==
LOC: ER 08:49
DX: N93.8 Other specified abnormal uterine and vaginal bleeding (principal); N83.201 Unspecified ovarian cyst, right side
CPT/HCPCS: 36415; 76830; 81001; 81025; 85025; 87210; 87491; 87591; 93976; 99284

== ENCOUNTER 2019-02-24 09:49 | Emergency (ER) | payer MEDICAID ==
[2019-02-24] MEDS ORDERED: IBUPROFEN 800 MG TABLET PO ONE (10:11)
--- NOTE | 2019-02-24 10:17 | ER Document Report ---
ED Extremity Problem, Lower - General Chief Complaint: Ankle Injury Stated Complaint: FALL/LEFT FOOT PAIN Time Seen by Provider: 02/24/19 10:06 Primary Care Provider: TERENCE SARABIA MD [Primary Care Provider] - Follow up as needed Mode of Arrival: Ambulatory Information source: Patient Notes: 34-year-old female presented to ED for complaint of left ankle and foot pain. She states she tripped and landed on her knee but her knee does not hurt she states that when she fell she heard cracks in her left ankle and foot. She states she has partial weightbearing but it is very painful. Patient is alert oriented respirations regular and unlabored speaking in full sentences. TRAVEL OUTSIDE OF THE [place] IN LAST 30 DAYS: No - HPI Patient complains to provider of: Injury, Pain Location: Ankle, Foot Occurred: Just prior to arrival Where: Outdoors, School Onset/Duration: Sudden Quality of pain: Achy, Sharp, Throbbing - They come down here Severity: Severe Pain Level: 5 Context: Fell, Wearing shoes Recent injury: Yes Associated symptoms: Coffey a crack, Painful ambulation - When she say, Unable to bear weight Exacerbated by: Hanging down, Movement - Yesterday x1 then she, Walking - Related Data Allergies/Adverse Reactions: acetaminophen [From Percocet] Allergy (Verified 02/21/19 09:48) codeine Allergy (Verified 02/21/19 09:48) oxycodone [From Percocet] Allergy (Verified 02/21/19 09:48) Past Medical History - General Information source: Patient - Social History Smoking Status: Never Smoker Frequency of alcohol use: None Drug Abuse: None Occupation: None Lives with: Family Family History: None, Reviewed & Not Pertinent Patient has suicidal ideation: No Patient has homicidal ideation: No - Past Medical History Cardiac Medical History: Reports: None Pulmonary Medical History: Reports: Hx Bronchitis EENT Medical History: Reports: None Neurological Medical History: Reports: Hx Migraine Endocrine Medical History: Reports: None Renal/ Medical History: Reports: None Malignancy Medical History: Reports: None GI Medical History: Reports: None Musculoskeletal Medical History: Reports None Skin Medical History: Reports None Psychiatric Medical History: Reports: None Traumatic Medical History: Reports: None Infectious Medical History: Reports: None Past Surgical History: Reports: Hx Cholecystectomy - Immunizations Immunizations up to date: Yes Hx Diphtheria, Pertussis, Tetanus Vaccination: Yes - received in 04/2012 per pt Review of Systems - Review of Systems Constitutional: No symptoms reported EENT: No symptoms reported Cardiovascular: No symptoms reported Respiratory: No symptoms reported Gastrointestinal: No symptoms reported Genitourinary: No symptoms reported Female Genitourinary: No symptoms reported Musculoskeletal: Ankle swelling, Other - Pain swelling bruising Skin: No symptoms reported Hematologic/Lymphatic: No symptoms reported Neurological/Psychological: No symptoms reported -: Yes All other systems reviewed and negative Physical Exam - Vital signs Vitals: Temp Pulse Resp BP Pulse Ox 97.9 F 75 16 119/86 H 100 02/24/19 09:56 02/24/19 09:56 02/24/19 09:56 02/24/19 09:56 02/24/19 09:56 Interpretation: Normal - General General appearance: Appears well, Alert - HEENT Head: Normocephalic, Atraumatic Eyes: Normal Pupils: PERRL - Respiratory Respiratory status: No respiratory distress Chest status: Nontender Breath sounds: Normal Chest palpation: Normal - Cardiovascular Rhythm: Regular Heart sounds: Normal auscultation Murmur: No - Abdominal Inspection: Normal Distension: No distension Bowel sounds: Normal Tenderness: Nontender Organomegaly: No organomegaly - Back Back: Normal, Nontender - Extremities General upper extremity: Normal inspection, Nontender, Normal color, Normal ROM, Normal temperature General lower extremity: Normal ROM, Normal temperature. No: Duncan's sign Ankle: Tender, Ecchymosis, Edema, Limited ROM - Due to pain has full range of motion but is painful. No: Abrasion, Deformity, Instability, Laceration, Positive Obrien's test, Unable to bear weight - Neurological Neuro grossly intact: Yes Cognition: Normal Orientation: AAOx4 [place] Coma Scale Eye Opening: Spontaneous [place] Coma Scale Verbal: Oriented [place] Coma Scale Motor: Obeys Commands [place] Coma Scale Total: 15 Speech: Normal Motor strength normal: LUE, RUE, LLE, RLE Sensory: Normal - Psychological Associated symptoms: Normal affect, Normal mood - Skin Skin Temperature: Warm Skin Moisture: Dry Skin Color: Normal Course - Re-evaluation Re-evalutation: 02/24/19 11:12 The patient is nontoxic appearing with stable vitals. They are afebrile. Ankle exam shows no deformities with no obvious ligament instability. There is a normal pulse and sensation distally. There is no redness or signs of infection. X-rays show no acute fracture per the radiologist. Patient will be placed in an Raul wrap for comfort. Crutches will be offered and given if requested. Patient will be instructed to follow-up with not better in 1 week, sooner for increasing pain, fever, redness, numbness, tingling, weakness, any further concerns. Patient will be instructed to rest, ice, elevate their ankle. - Vital Signs Vital signs: Temp Pulse Resp BP Pulse Ox 98.8 F 70 14 147/80 H 97 02/24/19 11:16 02/24/19 11:16 02/24/19 11:16 02/24/19 11:16 02/24/19 11:16 - Diagnostic Test Radiology reviewed: Image reviewed, Reports reviewed Procedures - Immobilization Left Ankle Time completed: 11:13 Immobilizer type: Raul wrap, Ankle stirrup, Crutches Performed by: Provider assisted, PCT Post-Proc Neuro Vasc Exam: Normal Alignment checked and good: Yes Discharge - Discharge Clinical Impression: Left ankle sprain Qualifiers: Encounter type: initial encounter Involved ligament of ankle: unspecified ligament Qualified Code(s): S93.402A - Sprain of unspecified ligament of left ankle, initial encounter Condition: Stable Disposition: HOME, SELF-CARE Additional Instructions: SPRAINED ANKLE: Your sprained ankle results from stretching or tearing of the ligaments which support the ankle. This usually results from twisting the foot inward and under. The ligaments will require time and protection in order to heal properly. Many ankle sprains are quite disabling, and should be taken seriously. The usual treatment for an ankle sprain is cold packs; protection with tape, splints, or wraps; elevation; and staying off the ankle for at least a day. As the ankle improves, you can walk IF it's not painful to bear weight. Sports are best postponed until healing is complete. More serious sprains usually require strengthening exercises after early healing. Your physician has assessed the seriousness of the ligament injury to your ankle. However, the treatment may change, depending on how your ankle progresses. If further exams were recommended, it is important that you follow through. Call the doctor if your foot becomes numb, painful, or severely swollen. RAUL WRAP: A compression dressing (raul wrap) has been placed. This helps hold the area still. It limits swelling and internal bleeding. The wrap should be comfortably snug -- not tight. You should feel a sense of pressure, but not severe pain under the wrap. Unless the physician tells you otherwise, you can adjust the wrap for comfort. If the wrap causes symptoms suggesting it's too tight -- uncomfortable pressure, swelling or discoloration beyond the wrap, numbness, or severe pain -- you must loosen the wrap. If these symptoms don't resolve promptly, return for re-evaluation. ANKLE STIRRUP SPLINT: You are to use an ankle brace called a stirrup splint. This type of brace allows you to place greater stresses on the ankle without risk of re-injury, and is often used for more severe ankle injuries such as avulsion fractures and ligament ruptures. The splint can be worn over a sock or tape. For proper support, wear the splint with a shoe over it. It's important that the splint fit properly. Adjust the heel tension, if needed. If your splint has air bladders, peel back the bottom of each air bladder, then move the Velcro attachment of the heel strap up or down. Air bladder pressure can be adjusted by pulling up the valve at the top, threading the air tube down into the main bladder, then blowing air into the bladder or squeezing it out. The two sides of the stirrup can be moved forward or back on your ankle by changing the attachment of the main straps. If you are unable to use the ankle comfortably in the splint, return for re-evaluation. ICE & ELEVATION: Apply ice packs frequently against the painful area. Many different schedules are recommended, such as "20 minutes on, 20 minutes off" or "one hour ice, two hours rest." If you need to work, you may need to go longer between ice treatments. You should plan to have the area ice packed AT LEAST one-fourth of the time. The ice should be applied over the wrap, tape, or splint, or over a layer of cloth -- not directly against the skin. Some ice bags have a built-in cloth and can be put directly on the skin. Your injured part should be elevated as much as possible over the next 48 hours. Try to keep the injury above the level of the heart. Avoid use of the injured area. Elevation and rest will decrease the swelling. USE OF [id number] IBUPROFEN: Ibuprofen (Advil, Nuprin, Medipren, Motrin IB) is a medication for fever and pain control. In addition, it has anti- inflammatory effects which may be beneficial, especially in the treatment of injuries. It's best to take ibuprofen with food. Persons with ulcer disease or allergy to aspirin should notify their physician of this before taking ibuprofen. Ibuprofen can be given every four to six hours, for a total of four doses daily. Age Pain or fever dose Antiinflammatory dose 6-8 yr 200 mg (1 tab) 200 mg (1 tab) 9-11 yr 200 mg (1 tab) 200-400 mg (1-2 tab) 11-14 yr 200-400 mg (1-2 tab) 400 mg (2 tab) 15-adult 400 mg (2 tab) 600 mg (3 tab) FOLLOW-UP CARE: If you have been referred to a physician for follow-up care, call the physicians office for an appointment as you were instructed or within the next two days. If you experience worsening or a significant change in your symptoms, notify the physician immediately or return to the Emergency Department at any time for re-evaluation. Forms: Parent Work Note, Elevated Blood Pressure Referrals: TERENCE SARABIA MD [Primary Care Provider] - Follow up as needed
--- NOTE | 2019-02-24 10:54 | RADIOLOGY REPORT (SQ) ---
EXAM DESCRIPTION: FOOT LEFT COMPLETE; ANKLE LEFT COMPLETE COMPLETED DATE/TIME: 02/24/2019 10:43 am REASON FOR STUDY: pain fall injury COMPARISON: None. NUMBER OF VIEWS: Six views. TECHNIQUE: AP, lateral and oblique radiographic images acquired of the left ankle and left foot. LIMITATIONS: None. FINDINGS: MINERALIZATION: Normal. BONES: No acute fracture or dislocation. No worrisome bone lesions. JOINTS: No effusions. SOFT TISSUES: No soft tissue swelling. No foreign body. OTHER: No other significant finding. IMPRESSION: NO RADIOGRAPHIC EVIDENCE OF ACUTE INJURY. TECHNICAL DOCUMENTATION: JOB ID: [id number] [employer]- All Rights Reserved Reading location - IP/workstation name: [email or web address]
--- NOTE | 2019-02-24 10:54 | RADIOLOGY REPORT (SQ) ---
EXAM DESCRIPTION: FOOT LEFT COMPLETE; ANKLE LEFT COMPLETE COMPLETED DATE/TIME: 02/24/2019 10:43 am REASON FOR STUDY: pain fall injury COMPARISON: None. NUMBER OF VIEWS: Six views. TECHNIQUE: AP, lateral and oblique radiographic images acquired of the left ankle and left foot. LIMITATIONS: None. FINDINGS: MINERALIZATION: Normal. BONES: No acute fracture or dislocation. No worrisome bone lesions. JOINTS: No effusions. SOFT TISSUES: No soft tissue swelling. No foreign body. OTHER: No other significant finding. IMPRESSION: NO RADIOGRAPHIC EVIDENCE OF ACUTE INJURY. TECHNICAL DOCUMENTATION: JOB ID: [id number] [employer]- All Rights Reserved Reading location - IP/workstation name: [email or web address]
[2019-02-24 11:18] VITALS: BP 147/80
== END 2019-02-24 11:22 | disposition home or self-care (01) ==
LOC: ER 09:49
DX: S93.402A Sprain of unspecified ligament of left ankle, initial encounter (principal); M25.572 Pain in left ankle and joints of left foot; M79.672 Pain in left foot; W10.9XXA Fall (on) (from) unspecified stairs and steps, initial encounter; Y92.219 Unspecified school as the place of occurrence of the external cause; Z88.6 Allergy status to analgesic agent; Z88.5 Allergy status to narcotic agent
CPT/HCPCS: 99283; 73610; 73630; L1902; J3490

== ENCOUNTER 2019-03-21 09:02 | Emergency (ER) | payer MEDICAID ==
[2019-03-21] MEDS ORDERED: METOCLOPRAMIDE HCL INJ/PF 10 MG/2 ML SDV IV ONE (09:18)
[2019-03-21] MEDS ORDERED: DIPHENHYDRAMINE HCL 50 MG/ML VIAL IV ONE (09:18)
--- NOTE | 2019-03-21 09:22 | ER Document Report ---
ED Medical Screen (RME) - General Chief Complaint: Headache Stated Complaint: HEADACHE Time Seen by Provider: 03/21/19 09:13 Primary Care Provider: TERENCE SARABIA MD [Primary Care Provider] - Follow up as needed Mode of Arrival: Ambulatory Information source: Patient TRAVEL OUTSIDE OF THE [place] IN LAST 30 DAYS: No - HPI Patient complains to provider of: headache, weakness Notes: 03/21/19 09:20 Patient here with complaints of left-sided weakness. Patient states she woke up feeling fine this morning. Around 730 she states that she developed sudden onset weakness in her left arm as well as inability to hear out of her left ear and slurred speech and drooling. She states that she talk to her who was having difficulty understanding her due to her slurred speech. This lasted for approximately an hour and then resolved. Following these symptoms, the patient developed a right-sided headache which she still has at this time. She no longer feels weak. She does have a history of migraines. She is not on blood thinning medications. She denies any injury. Exam No distress, nontoxic-appearing. Lungs clear and equal throughout. Heart sounds normal. Nonfocal neurological exam at this time. Cranial nerves II through XII grossly intact. No pronator drift. Speech normal. Plan Stat head CT, chest x-ray, CBC, CMP, coags, troponin, EKG, Reglan and Benadryl for possible migraine type headache, back to her room to be seen by provider immediately following head CT. An initial examination was made on the patient as part of the triage process, and it was determined a more comprehensive evaluation was necessary. Initial labs were ordered and patient was transferred to another provider in the ED who assumed care and finished evaluation and plan. - Related Data Allergies/Adverse Reactions: acetaminophen [From Percocet] Allergy (Verified 02/21/19 09:48) codeine Allergy (Verified 02/21/19 09:48) oxycodone [From Percocet] Allergy (Verified 02/21/19 09:48) Past Medical History - Social History Family history: Reviewed & Not Pertinent Pulmonary Medical History: Reports: Hx Bronchitis Neurological Medical History: Reports: Hx Migraine Renal/ Medical History: Denies: Hx Peritoneal Dialysis Past Surgical History: Reports: Hx Cholecystectomy - Immunizations Immunizations up to date: Yes Hx Diphtheria, Pertussis, Tetanus Vaccination: Yes - received in 04/2012 per pt Physical Exam - Vital signs Vitals: Temp Pulse Resp BP Pulse Ox 98.4 F 76 18 142/87 H 98 03/21/19 09:11 03/21/19 09:11 03/21/19 09:11 03/21/19 09:11 03/21/19 09:11 Course - Vital Signs Vital signs: Temp Pulse Resp BP Pulse Ox 98.4 F 76 18 142/87 H 98 03/21/19 09:11 03/21/19 09:11 03/21/19 09:11 03/21/19 09:11 03/21/19 09:11 Doctor's Discharge - Discharge Referrals: TERENCE SARABIA MD [Primary Care Provider] - Follow up as needed
--- NOTE | 2019-03-21 09:52 | RADIOLOGY REPORT (SQ) ---
EXAM DESCRIPTION: CT HEAD WITHOUT COMPLETED DATE/TIME: 03/21/2019 9:40 am REASON FOR STUDY: left sided weakness, slurred speech, resolved, ADAMSON COMPARISON: 03/08/2009. TECHNIQUE: Axial images acquired through the brain without intravenous contrast. Images reviewed wi th bone, brain and subdural windows. Additional sagittal and coronal reconstructions were generated. Images stored on PACS. All CT scanners at this facility use dose modulation, iterative reconstruction, and/or weight based d osing when appropriate to reduce radiation dose to as low as reasonably achievable (ALARA). [facility]: Dose Right [facility]: CareDose [facility]: Dose Right [facility]: Teradose 4D [facility]: Evolv RADIATION DOSE: CT Rad equipment meets quality standard of care and radiation dose reduction techniq ues were employed. CTDIvol: 53.2 mGy. DLP: 1044 mGy-cm. mGy. LIMITATIONS: None. FINDINGS: VENTRICLES: Normal size and contour. CEREBRUM: No masses. No hemorrhage. No midline shift. No evidence for acute infarction. Normal gra y/white matter differentiation. No areas of low density in the white matter. CEREBELLUM: No masses. No hemorrhage. No alteration of density. No evidence for acute infarction. EXTRAAXIAL SPACES: No fluid collections. No masses. ORBITS AND GLOBE: No intra- or extraconal masses. Normal contour of globe without masses. CALVARIUM: No fracture. PARANASAL SINUSES: No fluid or mucosal thickening. SOFT TISSUES: No mass or hematoma. OTHER: No other significant finding. IMPRESSION: NORMAL BRAIN CT WITHOUT CONTRAST. EVIDENCE OF ACUTE STROKE: NO. COMMENT: Quality ID # [id number]: Final reports with documentation of one or more dose reduction techniques (e.g., Automated exposure control, adjustment of the mA and/or kV according to patient size, use of iterative reconstruction technique) TECHNICAL DOCUMENTATION: JOB ID: [id number] [employer]- All Rights Reserved Reading location - IP/workstation name: [email or web address]
--- NOTE | 2019-03-21 09:57 | RADIOLOGY REPORT (SQ) ---
EXAM DESCRIPTION: CHEST SINGLE VIEW COMPLETED DATE/TIME: 03/21/2019 9:48 am REASON FOR STUDY: left sided weakness, slurred speech, resolved, ADAMSON COMPARISON: 03/27/2017 EXAM PARAMETERS: NUMBER OF VIEWS: One view. TECHNIQUE: Single frontal radiographic view of the chest acquired. RADIATION DOSE: NA LIMITATIONS: None. FINDINGS: LUNGS AND PLEURA: No opacities, masses or pneumothorax. No pleural effusion. MEDIASTINUM AND HILAR STRUCTURES: No masses. Contour normal. HEART AND VASCULAR STRUCTURES: Heart normal in size. Normal vasculature. BONES: No acute findings. HARDWARE: None in the chest. OTHER: Prior cholecystectomy. IMPRESSION: 1. No significant interval changes since the prior examination dated 03/27/2017. No acu te findings. TECHNICAL DOCUMENTATION: JOB ID: [id number] [employer]- All Rights Reserved Reading location - IP/workstation name: [email or web address]
[2019-03-21 10:18] LABS: ABSOLUTE BASOPHILS # (AUTO) 0.1 10^3/uL (0.0-0.2); ABSOLUTE LYMPHOCYTES (AUTO) 2.1 10^3/uL (0.5-4.7); ABSOLUTE MONOCYTES (AUTO) 0.5 10^3/uL (0.1-1.4); ABSOLUTE NEUT (AUTO) 5.9 10^3/uL (1.7-8.2); BASOPHILS % (AUTO) 0.7 % (0-2); EOSINOPHILS % (AUTO) 0.6 % (0-6); HEMATOCRIT 37.7 % (36.0-47.0); HEMOGLOBIN 12.6 g/dL (12.0-15.5); LYMPHOCYTES % (AUTO) 24.3 % (13-45); MEAN CORPUSCULAR HEMOGLOBIN 28.8 pg (27.0-33.4); MEAN CORPUSCULAR HGB CONC 33.5 g/dL (32.0-36.0); MEAN CORPUSCULAR VOLUME 86 fl (80-97); PLATELET COUNT 280 10^3/uL (150-450); RED BLOOD COUNT 4.39 10^6/uL (3.72-5.28); RED CELL DISTRIBUTION WIDTH 14.7 % (11.5-14.0); SEGMENTED NEUTROPHILS % (AUTO) 68.4 % (42-78); TOTAL CELLS COUNTED % (AUTO) 100 %; WHITE BLOOD COUNT 8.6 10^3/uL (4.0-10.5)
[2019-03-21 10:24] LABS: INTERNATIONAL RATION (INR) 0.91; PROTHROMBIN TIME 12.7 SEC (11.4-15.4)
[2019-03-21 10:25] LABS: PARTIAL THROMBOPLASTIN TIME 31.5 SEC (23.5-35.8)
[2019-03-21] MEDS ORDERED: NORMAL SALINE 1000 ML 1,000 ML IV ONE (10:33)
[2019-03-21] MEDS ORDERED: KETOROLAC TROMETHAMINE INJ/PF 30 MG/1 ML SDV IV ONE (10:33)
[2019-03-21 11:19] LABS: ALANINE AMINOTRANSFERASE 21 U/L (9-52); ALBUMIN 4.1 g/dL (3.5-5.0); ALKALINE PHOSPHATASE 81 U/L (38-126); ANION GAP 9 (5-19); ASPARTATE AMINO TRANSFERASE 24 U/L (14-36); BILIRUBIN,DIRECT 0.3 mg/dL (0.0-0.4); BILIRUBIN,TOTAL 0.8 mg/dL (0.2-1.3); BLOOD UREA NITROGEN 7 mg/dL (7-20); CALCIUM 9.2 mg/dL (8.4-10.2); CARBON DIOXIDE 23 mmol/L (22-30); CHLORIDE 107 mmol/L (98-107); GLUCOSE 104 mg/dL (75-110); POTASSIUM 4.1 mmol/L (3.6-5.0); SODIUM 139.3 mmol/L (137-145); TOTAL PROTEIN 7.5 g/dL (6.3-8.2)
--- NOTE | 2019-03-21 12:19 | EKG REPORT ---
SEVERITY:- BORDERLINE ECG - SINUS RHYTHM PROBABLE LEFT ATRIAL ABNORMALITY NONSPECIFIC ST-T CHANGES- INFERIOR LEADS : Confirmed by: Jose Camarena MD 21-Mar-2019 12:19:19
[2019-03-21 13:12] VITALS: BP 120/77
--- NOTE | 2019-03-23 11:00 | ER Document Report ---
Entered by REGLA EATON SCRIBE 03/21/19 1029 Acting as scribe for:NOEL POON MD ED General - General Chief Complaint: Headache Stated Complaint: HEADACHE Time Seen by Provider: 03/21/19 09:13 Primary Care Provider: TERENCE SARABIA MD [Primary Care Provider] - Follow up as needed Mode of Arrival: Ambulatory Information source: Patient Notes: Patient is a 34 year old female presenting to the emergency department complaining of multiple symptoms including left arm weakness and numbness as well as a headache. Patient states after dropping her daughter off at school and returning home, around 0730 this morning, she noticed she had left hand weakness and numbness. She states she dropped her keys and was unable to pick them up fu rther stating she was able to move her fingers but noticed they were weak and numb. She reports "I was holding my grandchild with my right arm but I couldn't hold anything with my left arm". She states she also developed slurred speech and drooling at the same time further stating "my boyfriend told me my speech was slurred and I couldn't hear myself speak". She states these symptoms lasted between 30 min to 1 hr, after which she developed a right sided headache that is still present. She states she did not notice any facial weakness during the weakness and slurred speech. The patient is not a TPA candidate. All of her neurological symptoms had resolved prior to arrival in the emergency room. At this time she only has a right parietal headache. TRAVEL OUTSIDE OF THE [place] IN LAST 30 DAYS: No - Related Data Allergies/Adverse Reactions: acetaminophen [From Percocet] Allergy (Verified 02/21/19 09:48) codeine Allergy (Verified 02/21/19 09:48) oxycodone [From Percocet] Allergy (Verified 02/21/19 09:48) Past Medical History - General Information source: Patient - Social History Smoking Status: Never Smoker Cigarette use (# per day): No Chew tobacco use (# tins/day): No Smoking Education Provided: No Frequency of alcohol use: None Family History: None, Reviewed & Not Pertinent Patient has suicidal ideation: No Patient has homicidal ideation: No Pulmonary Medical History: Reports: Hx Bronchitis Neurological Medical History: Reports: Hx Migraine Past Surgical History: Reports: Hx Cholecystectomy - Immunizations Immunizations up to date: Yes Hx Diphtheria, Pertussis, Tetanus Vaccination: Yes - received in 04/2012 per pt Review of Systems - Review of Systems Constitutional: No symptoms reported EENT: No symptoms reported Cardiovascular: No symptoms reported Respiratory: No symptoms reported Gastrointestinal: No symptoms reported Genitourinary: No symptoms reported Musculoskeletal: No symptoms reported Skin: No symptoms reported Hematologic/Lymphatic: No symptoms reported Neurological/Psychological: See HPI, Headaches, Speech impairment, Numbness -: Yes All other systems reviewed and negative Physical Exam - Vital signs Vitals: Temp Pulse Resp BP Pulse Ox 98.4 F 76 18 142/87 H 98 03/21/19 09:11 03/21/19 09:11 03/21/19 09:11 03/21/19 09:11 03/21/19 09:11 - Notes Notes: GENERAL: Alert, interacts well. No acute distress. HEAD: Normocephalic, atraumatic. EYES: Pupils equal, round, and reactive to light. Extraocular movements intact. ENT: Oral mucosa moist, tongue midline. NECK: Full range of motion. Supple. Trachea midline. No carotid bruits. Minimal posterior cervical muscle tenderness to palpation. LUNGS: Clear to auscultation bilaterally, no wheezes, rales, or rhonchi. No respiratory distress. HEART: Regular rate and rhythm. No murmurs, gallops, or rubs. ABDOMEN: Soft, non-tender. Non-distended. Bowel sounds present in all 4 quadrants. No guarding, rigidity, or rebound. EXTREMITIES: Moves all 4 extremities spontaneously. No edema. No cyanosis. NEUROLOGICAL: Alert and oriented x3. Normal speech. Cranial nerves II through XII grossly intact. PSYCH: Normal affect, normal mood. SKIN: Warm, dry, normal turgor. No rashes or lesions noted. Course - Re-evaluation Re-evalutation: 03/21/19 11:52 Patient is sleeping soundly at this time. 03/21/19 12:13 Patient was awakened for re-exam. She feels much better and her headache is gone. - Vital Signs Vital signs: Temp Pulse Resp BP Pulse Ox 98.4 F 69 14 118/81 100 03/21/19 09:11 03/21/19 10:58 03/21/19 10:58 03/21/19 10:58 03/21/19 10:16 - Laboratory Result Diagrams: 03/21/19 10:03 03/21/19 10:03 Laboratory results interpreted by me: 03/21/19 03/21/19 10:03 10:03 RDW 14.7 H Creatinine 0.47 L Discharge - Discharge Clinical Impression: Complicated migraine Condition: Stable Disposition: HOME, SELF-CARE Additional Instructions: Your symptoms today suggests you had a complex migraine type headache. These are headaches that are often preceded by neurological symptoms, and as the neurological symptoms resolve, then the headache starts. Get plenty of rest and drink plenty of fluids today. Follow-up with your doctor if the headaches become a frequent problem. RETURN TO THE EMERGENCY ROOM IF ANY NEW OR WORSENING SYMPTOMS. Referrals: TERENCE SARABIA MD [Primary Care Provider] - Follow up as needed Scribe Attestation: 03/21/19 10:53 I personally performed the services described in the documentation, reviewed and edited the documentation which was dictated to the scribe in my presence, and it accurately records my words and actions. I personally performed the services described in the documentation, reviewed and edited the documentation which was dictated to the scribe in my presence, and it accurately records my words and actions.
== END 2019-03-21 13:31 | disposition home or self-care (01) ==
LOC: ER 09:02
DX: G43.909 Migraine, unspecified, not intractable, without status migrainosus (principal); M62.81 Muscle weakness (generalized); R20.0 Anesthesia of skin
CPT/HCPCS: 93005; 99285; 96374; 96375; 36415; 82962; 85025; 85610; 85730; 80053; 84484; 71045; 70450; 93010; J1200; J1885; J2765; J7030

== ENCOUNTER 2019-04-12 17:22 | Emergency (ER) | payer MEDICAID ==
[2019-04-12] MEDS ORDERED: METOCLOPRAMIDE HCL 10 MG TABLET PO ONE (17:49)
--- NOTE | 2019-04-12 17:52 | ER Document Report ---
ED Medical Screen (RME) - General Chief Complaint: Vomiting Stated Complaint: VOMITING Time Seen by Provider: 04/12/19 17:46 Primary Care Provider: TERENCE SARABIA MD [Primary Care Provider] - Follow up as needed Mode of Arrival: Ambulatory Information source: Patient Notes: Patient presents emergency department with reports of feeling nauseous and vomiting all day. Patient is . Unsure of ETA. She reports last menstrual period 02/17. G6, P5. Has an appointment with [facility] next week. Reports abdominal pain. Denies fever diarrhea. Reports nobody else at the house is sick. I have greeted and performed a rapid initial assessment of this patient. A comprehensive ED assessment and evaluation of the patient, analysis of test results and completion of the medical decision making process will be conducted by additional ED providers. Dictation of this chart was performed using voice recognition software; therefore, there may be some unintended grammatical errors. TRAVEL OUTSIDE OF THE [place] IN LAST 30 DAYS: No - Related Data Allergies/Adverse Reactions: acetaminophen [From Percocet] Allergy (Verified 04/12/19 17:22) codeine Allergy (Verified 04/12/19 17:22) oxycodone [From Percocet] Allergy (Verified 04/12/19 17:22) Past Medical History - Social History Family history: Reviewed & Not Pertinent Pulmonary Medical History: Reports: Hx Bronchitis Neurological Medical History: Reports: Hx Migraine Renal/ Medical History: Denies: Hx Peritoneal Dialysis Past Surgical History: Reports: Hx Cholecystectomy - Immunizations Immunizations up to date: Yes Hx Diphtheria, Pertussis, Tetanus Vaccination: Yes - received in 04/2012 per pt Physical Exam - Vital signs Vitals: Temp Pulse Resp BP Pulse Ox 99.8 F 103 H 18 124/76 99 04/12/19 17:35 04/12/19 17:35 04/12/19 17:35 04/12/19 17:35 04/12/19 17:35 Course - Vital Signs Vital signs: Temp Pulse Resp BP Pulse Ox 99.8 F 103 H 18 124/76 99 04/12/19 17:35 04/12/19 17:35 04/12/19 17:35 04/12/19 17:35 04/12/19 17:35 Doctor's Discharge - Discharge Referrals: TERENCE SARABIA MD [Primary Care Provider] - Follow up as needed
[2019-04-12 18:11] LABS: ABSOLUTE LYMPHOCYTES (AUTO) 0.6 10^3/uL (0.5-4.7); ABSOLUTE MONOCYTES (AUTO) 0.4 10^3/uL (0.1-1.4); ABSOLUTE NEUT (AUTO) 10.1 10^3/uL (1.7-8.2); BASOPHILS % (AUTO) 0.3 % (0-2); EOSINOPHILS % (AUTO) 0.1 % (0-6); HEMATOCRIT 39.9 % (36.0-47.0); HEMOGLOBIN 13.2 g/dL (12.0-15.5); LYMPHOCYTES % (AUTO) 5.5 % (13-45); MEAN CORPUSCULAR HEMOGLOBIN 28.4 pg (27.0-33.4); MEAN CORPUSCULAR VOLUME 86 fl (80-97); MONOCYTES % (AUTO) 3.9 % (3-13); PLATELET COUNT 246 10^3/uL (150-450); RED BLOOD COUNT 4.64 10^6/uL (3.72-5.28); SEGMENTED NEUTROPHILS % (AUTO) 90.2 % (42-78); TOTAL CELLS COUNTED % (AUTO) 100 %; WHITE BLOOD COUNT 11.2 10^3/uL (4.0-10.5)
[2019-04-12 18:31] LABS: APPEARANCE,URINE SLIGHTLY-CLOUDY; BILIRUBIN,URINE NEGATIVE (NEGATIVE); COLOR,URINE YELLOW; GLUCOSE, URINE NEGATIVE (NEGATIVE); KETONES,URINE 80 mg/dL (NEGATIVE); LEUKOCYTE ESTERASE,URINE NEGATIVE (NEGATIVE); NITRITE,URINE NEGATIVE (NEGATIVE); PROTEIN,URINE NEGATIVE (NEGATIVE)
[2019-04-12 18:40] LABS: ALANINE AMINOTRANSFERASE 23 U/L (9-52); ALBUMIN 4.2 g/dL (3.5-5.0); ALKALINE PHOSPHATASE 67 U/L (38-126); ANION GAP 10 (5-19); ASPARTATE AMINO TRANSFERASE 18 U/L (14-36); BILIRUBIN,DIRECT 0.2 mg/dL (0.0-0.4); BILIRUBIN,TOTAL 1.5 mg/dL (0.2-1.3); BLOOD UREA NITROGEN 7 mg/dL (7-20); CALCIUM 9.5 mg/dL (8.4-10.2); CARBON DIOXIDE 25 mmol/L (22-30); CHLORIDE 103 mmol/L (98-107); GLUCOSE 113 mg/dL (75-110); POTASSIUM 3.9 mmol/L (3.6-5.0); SODIUM 138.2 mmol/L (137-145); TOTAL PROTEIN 7.1 g/dL (6.3-8.2)
--- NOTE | 2019-04-12 20:17 | RADIOLOGY REPORT (SQ) ---
EXAM DESCRIPTION: U/S OB TRANSVAGINAL W/O DOP COMPLETED DATE/TIME: 04/12/2019 7:40 pm REASON FOR STUDY: abd pain ... lmp 3-22, unsure of ETA COMPARISON: None. TECHNIQUE: Transvaginal static and realtime grayscale images acquired of the pelvis. Additional efren cted spectral and color Doppler images recorded. All images stored on PACs. C,[id number] CLINICAL DATES: LMP 02/17/2019. 7 weeks 5 days. LIMITATIONS: None. FINDINGS: FETUS: Single Living intrauterine . ULTRASOUND EGA: 6 weeks 0 days ULTRASOUND SANGEETHA: 12/06/2019 EFW: Not applicable less than 20 weeks. CRL: 3.6 mm. FHR: 168 beats per minute. SURVEY: Too early to assess. AMNIOTIC FLUID: Adequate amount. PLACENTA: Not yet developed due to early gestation. SUBCHORIONIC BLEED: No SIZE OF BLEED: Not applicable. UTERUS: No masses. No anomalies. CERVICAL LENGTH: 2.3 cm. Closed. RIGHT ADNEXA: Normal ovary with normal vascular flow. 2.6 x 2 x 1.6 cm. No adnexal free fluid. No adnexal masses. LEFT ADNEXA: Normal ovary with normal vascular flow. 1.1 x 1.5 x 1.9 cm. No adnexal free fluid. No adnexal masses. FREE FLUID: None. OTHER: No other significant finding. IMPRESSION: LIVING INTRAUTERINE . EGA 6 weeks 0 days. Trimester of : First - 0 to 13 weeks. TECHNICAL DOCUMENTATION: JOB ID: [id number] [employer]- All Rights Reserved Reading location - IP/workstation name: [email or web address]
[2019-04-12] MEDS ORDERED: ONDANSETRON HCL INJ/PF 4 MG/2 ML SDV IV ONE (22:10)
[2019-04-12] MEDS: RINGERS SOLUTION,LACTATED 1,000 ML IV PRN ×2 (22:17→22:18)
--- NOTE | 2019-04-12 22:42 | ER Document Report ---
ED General - General Chief Complaint: Vomiting Stated Complaint: VOMITING Time Seen by Provider: 04/12/19 17:46 Primary Care Provider: TERENCE SARABIA MD [Primary Care Provider] - Follow up in 3-5 days Mode of Arrival: Ambulatory Information source: Patient, [facility] Records Notes: 34-year-old female G6, P5 at 6 weeks gestation per ultrasound presents with complaint of nausea, vomiting and abdominal pain. Patient states vomiting started this morning. She states that she has had more than 10 episodes of nonbloody emesis. She states her abdominal pain is only with vomiting. She describes it as a aching intermittent pain. She denies any fever, chills, chest pain, shortness of breath, dysuria, hematuria, vaginal discharge, vaginal bleeding. Patient has not yet sought OB care. TRAVEL OUTSIDE OF THE [place] IN LAST 30 DAYS: No - HPI Onset: This morning Onset/Duration: Intermittent Quality of pain: Achy Severity: Mild Pain Level: 1 Associated symptoms: Nausea, Vomiting. denies: Chest pain, Fever, Shortness of breath Exacerbated by: Other - Vomiting Relieved by: Denies Similar symptoms previously: No Recently seen / treated by doctor: No - Related Data Allergies/Adverse Reactions: acetaminophen [From Percocet] Allergy (Verified 04/12/19 17:22) codeine Allergy (Verified 04/12/19 17:22) oxycodone [From Percocet] Allergy (Verified 04/12/19 17:22) Past Medical History - General Information source: Patient - Social History Smoking Status: Never Smoker Chew tobacco use (# tins/day): No Frequency of alcohol use: None Drug Abuse: None Lives with: Family Family History: None, Reviewed & Not Pertinent Patient has suicidal ideation: No Patient has homicidal ideation: No Pulmonary Medical History: Reports: Hx Bronchitis Neurological Medical History: Reports: Hx Migraine Renal/ Medical History: Denies: Hx Peritoneal Dialysis Past Surgical History: Reports: Hx Cholecystectomy - Immunizations Immunizations up to date: Yes Hx Diphtheria, Pertussis, Tetanus Vaccination: Yes - received in 04/2012 per pt Review of Systems - Review of Systems Notes: REVIEW OF SYSTEMS: CONSTITUTIONAL : Denies fever, chills, or sweats. Denies recent illness. Denies weight loss, recent hospitalizations. EENT: Denies visual changes, eye pain. Denies sore throat, oral lesions, difficulty swallowing. CARDIOVASCULAR: Denies chest pain. Denies palpitations. Denies lower extremity edema. RESPIRATORY: Denies cough. Denies shortness of breath, wheezing. GASTROINTESTINAL: Denies abdominal pain or distention. Denies diarrhea. Denies blood in vomitus, stools, or per rectum. Denies black, tarry stools. Denies constipation. GENITOURINARY: Denies difficulty urinating, painful urination, frequency, blood in urine, or vaginal discharge. MUSCULOSKELETAL: Denies back or neck pain or stiffness. Denies joint pain or swelling. SKIN: Denies rash, lesions or sores. HEMATOLOGIC : Denies easy bruising or bleeding. LYMPHATIC: Denies swollen glands. NEUROLOGICAL: Denies confusion or altered mental status. Denies loss of consciousness. Denies dizziness or lightheadedness. Denies headache. Denies weakness or paralysis. Denies problems difficulty with ambulation, slurred speech. Denies sensory loss, numbness, or tingling. Denies seizures. PSYCHIATRIC: Denies anxiety or stress. Denies depression, suicidal ideation, or homicidal ideation. Denies visual or auditory hallucinations. Physical Exam - Vital signs Vitals: Temp Pulse Resp BP Pulse Ox 99.8 F 103 H 18 124/76 99 04/12/19 17:35 04/12/19 17:35 04/12/19 17:35 04/12/19 17:35 04/12/19 17:35 - Notes Notes: PHYSICAL EXAMINATION: GENERAL: Well-appearing, well-nourished and in no acute distress. HEAD: Atraumatic, normocephalic. EYES: Pupils equal round and reactive to light, extraocular movements intact, conjunctiva are normal. ENT: Nares patent, oropharynx clear without exudates. Moist mucous membranes. NECK: Normal range of motion, supple without lymphadenopathy LUNGS: Breath sounds clear to auscultation bilaterally and equal. No wheezes rales or rhonchi. HEART: Regular rate and rhythm without murmurs ABDOMEN: Soft, nontender, nondistended abdomen. No guarding, no rebound. No masses appreciated. Female : deferred Musculoskeletal: Normal range of motion, no pitting or edema. No cyanosis. NEUROLOGICAL: Cranial nerves grossly intact. Normal speech, normal gait. Normal sensory, motor exams PSYCH: Normal mood, normal affect. SKIN: Warm, Dry, normal turgor, no rashes or lesions noted. Course - Re-evaluation Re-evalutation: 04/12/19 22:37 Laboratory 04/12/19 04/12/19 04/12/19 17:56 17:56 17:56 WBC 11.2 H RBC 4.64 Hgb 13.2 Hct 39.9 MCV 86 MCH 28.4 MCHC 33.0 RDW 15.0 H Plt Count 246 Seg Neutrophils % 90.2 H Lymphocytes % 5.5 L Monocytes % 3.9 Eosinophils % 0.1 Basophils % 0.3 Absolute Neutrophils 10.1 H Absolute Lymphocytes 0.6 Absolute Monocytes 0.4 Absolute Eosinophils 0.0 Absolute Basophils 0.0 Sodium 138.2 Potassium 3.9 Chloride 103 Carbon Dioxide 25 Anion Gap 10 BUN 7 Creatinine 0.50 L Est GFR ( Amer) > 60 Est GFR (Non-Af Amer) > 60 Glucose 113 H Calcium 9.5 Total Bilirubin 1.5 H Direct Bilirubin 0.2 Neonat Total Bilirubin Not Reportable Neonat Direct Bilirubin Not Reportable Neonat Indirect Bili Not Reportable AST 18 ALT 23 Alkaline Phosphatase 67 Total Protein 7.1 Albumin 4.2 Beta HCG, Quant 09486.00 H Total Beta HCG POSITIVE Urine Color YELLOW Urine Appearance SLIGHTLY-CLOUDY Urine pH 5.0 Ur Specific [place] 1.020 Urine Protein NEGATIVE Urine Glucose (UA) NEGATIVE Urine Ketones 80 H Urine Blood SMALL H Urine Nitrite NEGATIVE Urine Bilirubin NEGATIVE Urine Urobilinogen 4.0 H Ur Leukocyte Esterase NEGATIVE Urine WBC (Auto) 0 Urine RBC (Auto) 1 Urine Bacteria (Auto) TRACE Squamous Epi Cells Auto 5 Urine Mucus (Auto) FEW Urine Ascorbic Acid NEGATIVE Obstetrics Ultrasound 04/12/19 17:48 IMPRESSION: LIVING INTRAUTERINE . EGA 6 weeks 0 days. Trimester of : First - 0 to 13 weeks. Temp Pulse Resp BP Pulse Ox 99.8 F 103 H 18 124/76 99 04/12/19 17:35 04/12/19 17:35 04/12/19 17:35 04/12/19 17:35 04/12/19 17:35 04/12/19 22:39 Patient presents with persistent vomiting during . Vitals at time of arrival unremarkable without significant tachycardia or hypotension. Laboratories reveal a normal creatinine and no evidence of significant dehydration. Patient was able to tolerate oral intake here in the emergency department. IV fluids were provided. Transvaginal ultrasound shows appropriate heart rate for gestational age. No vaginal bleeding or discharge. Based on abdominal exam, vitals and history I do not suspect an acute appendicitis, cholestasis of , acute cholecystitis, pancreatitis, or bowel obstruction. Patient will be started on a combination of Zofran and vitamin B6. At this time will discharge with return precautions and follow-up recommendations. Verbal discharge instructions given a the bedside and opportun ity for questions given. Medication warnings reviewed. Patient is in agreement with this plan and has verbalized understanding of return precautions and the need for primary care follow-up in the next 24-72 hours. - Vital Signs Vital signs: Temp Pulse Resp BP Pulse Ox 99.1 F 91 17 106/61 100 04/13/19 00:06 04/13/19 00:06 04/13/19 00:06 04/13/19 00:06 04/13/19 00:06 - Laboratory Result Diagrams: 04/12/19 17:56 04/12/19 17:56 Laboratory results interpreted by me: 04/12/19 04/12/19 04/12/19 17:56 17:56 17:56 WBC 11.2 H RDW 15.0 H Seg Neutrophils % 90.2 H Lymphocytes % 5.5 L Absolute Neutrophils 10.1 H Creatinine 0.50 L Glucose 113 H Total Bilirubin 1.5 H Beta HCG, Quant 88967.00 H Urine Ketones 80 H Urine Blood SMALL H Urine Urobilinogen 4.0 H - Diagnostic Test Radiology reviewed: Image reviewed, Reports reviewed Discharge - Discharge Clinical Impression: Nausea/vomiting in , Dehydration, First trimester Condition: Good Disposition: HOME, SELF-CARE Instructions: Antinausea Medication ([facility]), Intravenous (IV) Fluids ([facility]), Vomiting ([facility]) Additional Instructions: You have been seen for vomiting during . You should continue to drink plenty of water and consider taking a solution such as Pedialyte if your having difficulty eating food. Please return if you become unable to drink any fluids for more than 12 hours, urinate less than twice a day, pass out, or have any other symptoms that are concerning to you. For nausea and vomiting during I recomment: Start with 10-12.5 mg of pyridoxine (vitamin B6) three times a day for 2 days. If not fully effective, Increase to 12.5 mg of pyridoxine four times a day for 2 days. If not fully effective, Increase to 25 mg of pyridoxine three times a day for 2 days. If not fully effective, Continue 25 mg pyridoxine 3 times a day, and add 12.5 mg of doxylamine before bedtime each day for 2 days. If not fully effective, Continue 25 mg pyridoxine 3 times a day, and take 12.5 mg of doxylamine twice a day. If not fully effective, Continue 25 mg pyridoxine 3 times a day, and take 12.5 mg of doxylamine three times a day. If not fully effective, Continue 25 mg pyridoxine 3 times a day, and 12.5 mg of doxylamine 3 times a day, while adding Emetrol, one to two tablespoons (15-30 cc) taken once or twice a day as needed. (Emetrol is an [id number] mixture of sugar syrups and phosphoric acid [phosphorylated carbohydrate solution]) that acts by soothing the actual wall of the gastrointestinal tract). If not fully effective, Consult with your doctor. Prescriptions: Ondansetron [Zofran Odt 4 mg Tablet] 1 tab PO Q6H PRN #15 tab.rapdis PRN Reason: For Nausea/Vomiting Referrals: TERENCE SARABIA MD [Primary Care Provider] - Follow up in 3-5 days
[2019-04-13 00:11] VITALS: BP 106/61
== END 2019-04-13 00:10 | disposition home or self-care (01) ==
LOC: ER 17:22
DX: O21.9 Vomiting of pregnancy, unspecified (principal); O26.891 Other specified pregnancy related conditions, first trimester; R10.9 Unspecified abdominal pain; E86.0 Dehydration; Z3A.00 Weeks of gestation of pregnancy not specified
CPT/HCPCS: 99284; 96374; 36415; 84702; 85025; 80053; 81001; 76817; J3490; J2405; J7120

== ENCOUNTER 2019-08-14 19:41 | Emergency (ER) | payer MEDICAID ==
[2019-08-14] MEDS ORDERED: ONDANSETRON 4 MG TAB.RAPDIS PO ONE (20:48)
[2019-08-14 21:51] LABS: ABSOLUTE BASOPHILS # (AUTO) 0.1 10^3/uL (0.0-0.2); ABSOLUTE EOSINOPHILS # (AUTO) 0.1 10^3/uL (0.0-0.6); ABSOLUTE LYMPHOCYTES (AUTO) 3.1 10^3/uL (0.5-4.7); ABSOLUTE MONOCYTES (AUTO) 0.9 10^3/uL (0.1-1.4); ABSOLUTE NEUT (AUTO) 9.2 10^3/uL (1.7-8.2); BASOPHILS % (AUTO) 0.5 % (0-2); EOSINOPHILS % (AUTO) 0.4 % (0-6); LYMPHOCYTES % (AUTO) 23.3 % (13-45); MEAN CORPUSCULAR HGB CONC 33.2 g/dL (32.0-36.0); MEAN CORPUSCULAR VOLUME 87 fl (80-97); MONOCYTES % (AUTO) 6.7 % (3-13); PLATELET COUNT 277 10^3/uL (150-450); RED BLOOD COUNT 4.47 10^6/uL (3.72-5.28); RED CELL DISTRIBUTION WIDTH 15.9 % (11.5-14.0); SEGMENTED NEUTROPHILS % (AUTO) 69.1 % (42-78); TOTAL CELLS COUNTED % (AUTO) 100 %; WHITE BLOOD COUNT 13.3 10^3/uL (4.0-10.5)
[2019-08-14 22:07] LABS: APPEARANCE,URINE CLEAR; BILIRUBIN,URINE NEGATIVE (NEGATIVE); COLOR,URINE YELLOW; GLUCOSE, URINE NEGATIVE (NEGATIVE); KETONES,URINE NEGATIVE (NEGATIVE); NITRITE,URINE NEGATIVE (NEGATIVE); PROTEIN,URINE NEGATIVE (NEGATIVE); URINE SPECIFIC GRAVITY 1.023
[2019-08-14 22:08] LABS: LEUKOCYTE ESTERASE,URINE LARGE (NEGATIVE)
[2019-08-14 22:17] LABS: ANION GAP 9 (5-19); BLOOD UREA NITROGEN 10 mg/dL (7-20); CALCIUM 9.9 mg/dL (8.4-10.2); CARBON DIOXIDE 25 mmol/L (22-30); CHLORIDE 102 mmol/L (98-107); GLUCOSE 93 mg/dL (75-110); POTASSIUM 4.7 mmol/L (3.6-5.0)
--- NOTE | 2019-08-14 23:34 | ER Document Report ---
ED GI/ - General Chief Complaint: Abdominal Pain Stated Complaint: LOWER ABDOMINAL PAIN,FATIGUE Time Seen by Provider: 08/14/19 23:20 Primary Care Provider: [facility] [Provider Group] - Follow up as needed TERENCE SARABIA MD [Primary Care Provider] - Follow up as needed Mode of Arrival: Ambulatory Information source: Patient Notes: 34-year-old female presents to ED for complaint of mild lower abdominal pain for few days. She states she is not sure if she is or not. She is in no acute distress at this time. She states she has been nauseated off and on for the last week. She is alert oriented respirations regular and unlabored speak ing in full sentences. She is 6 para 5 with 5 living children. She states her last menstrual period was July 02 and she thought she might be . She states she has had similar feelings with previous pregnancies. Patient states she has O- blood type and is on prenatals. She states she is taken Zofran with all of her pregnancies. TRAVEL OUTSIDE OF THE [place] IN LAST 30 DAYS: No - HPI Patient complains to provider of: Pelvic pain - Mild, , Other - Nausea. No: Vomiting Onset: Other - BP 0.5 with not which she told me few days Timing/Duration: Intermittent Quality of pain: Cramping Severity at maximum: Severe Severity in ED: Mild Pain Level: 2 Location: Pelvis Vaginal bleeding (Compared to normal period): None LMP: July 02 : 6 Para: 5 heart tones (bpm): 128 EDC: 04/04/20 OB ultrasound done: Yes vitamins taken: Yes Associated symptoms: Other Exacerbated by: Walking Relieved by: Denies Similar symptoms previously: No Recently seen / treated by doctor: No - Related Data Allergies/Adverse Reactions: acetaminophen [From Percocet] Allergy (Verified 08/14/19 19:43) codeine Allergy (Verified 08/14/19 19:43) oxycodone [From Percocet] Allergy (Verified 08/14/19 19:43) Past Medical History - General Information source: Patient - Social History Smoking Status: Never Smoker Frequency of alcohol use: None Drug Abuse: None Lives with: Spouse/Significant other Family History: None, Reviewed & Not Pertinent Patient has suicidal ideation: No Patient has homicidal ideation: No - Past Medical History Cardiac Medical History: Reports: None Pulmonary Medical History: Reports: Hx Bronchitis EENT Medical History: Reports: None Neurological Medical History: Reports: Hx Migraine Endocrine Medical History: Reports: None Renal/ Medical History: Reports: None Malignancy Medical History: Reports: None GI Medical History: Reports: None Musculoskeletal Medical History: Reports None Skin Medical History: Reports None Psychiatric Medical History: Reports: Hx Depression Traumatic Medical History: Reports: None Infectious Medical History: Reports: None Past Surgical History: Reports: Hx Cholecystectomy - Immunizations Immunizations up to date: Yes Hx Diphtheria, Pertussis, Tetanus Vaccination: Yes - received in 04/2012 per pt Review of Systems - Review of Systems Constitutional: No symptoms reported EENT: No symptoms reported Cardiovascular: No symptoms reported Respiratory: No symptoms reported Gastrointestinal: No symptoms reported Genitourinary: No symptoms reported Female Genitourinary: , Other - Bilateral pelvic pain. denies: Heavy/abnormal periods Musculoskeletal: No symptoms reported Skin: No symptoms reported Hematologic/Lymphatic: No symptoms reported Neurological/Psychological: No symptoms reported -: Yes All other systems reviewed and negative Physical Exam - Vital signs Vitals: Temp Pulse Resp BP Pulse Ox 98.8 F 88 16 109/72 97 08/14/19 20:31 08/14/19 20:31 08/14/19 20:31 08/14/19 20:31 08/14/19 20:31 Interpretation: Normal - General General appearance: Appears well, Alert - HEENT Head: Normocephalic, Atraumatic Eyes: Normal Pupils: PERRL - Respiratory Respiratory status: No respiratory distress Chest status: Nontender Breath sounds: Normal Chest palpation: Normal - Cardiovascular Rhythm: Regular Heart sounds: Normal auscultation Murmur: No - Abdominal Inspection: Normal Distension: No distension Bowel sounds: Normal Tenderness: Tender - Bilateral pelvic pain Organomegaly: No organomegaly - Back Back: Normal, Nontender - Extremities General upper extremity: Normal inspection, Nontender, Normal color, Normal ROM, Normal temperature General lower extremity: Normal inspection, Nontender, Normal color, Normal ROM, Normal temperature, Normal weight bearing. No: Duncan's sign - Neurological Neuro grossly intact: Yes Cognition: Normal Orientation: AAOx4 Hammond Coma Scale Eye Opening: Spontaneous Arline Coma Scale Verbal: Oriented [place]line Coma Scale Motor: Obeys Commands Hammond Coma Scale Total: 15 Speech: Normal Motor strength normal: LUE, RUE, LLE, RLE Sensory: Normal - Psychological Associated symptoms: Normal affect, Normal mood - Skin Skin Temperature: Warm Skin Moisture: Dry Skin Color: Normal Course - Re-evaluation Re-evalutation: 08/15/19 01:40 Discussed labs and ultrasound with patient. Written reports of labs and ultrasound given to patient before discharge. Patient is 6 weeks 4-day with a live intrauterine . - Vital Signs Vital signs: Temp Pulse Resp BP Pulse Ox 98.8 F 88 16 109/72 97 08/14/19 20:31 08/14/19 20:31 08/14/19 20:31 08/14/19 20:31 08/14/19 20:31 - Laboratory Result Diagrams: 08/14/19 21:30 08/14/19 21:30 Laboratory results interpreted by me: 08/14/19 08/14/19 08/14/19 21:30 21:30 21:30 WBC 13.3 H RDW 15.9 H Absolute Neuts (auto) 9.2 H Sodium 136.0 L Beta HCG, Quant Urine Urobilinogen 4.0 H Ur Leukocyte Esterase LARGE H Urine HCG, Qual POSITIVE H 08/14/19 21:30 WBC RDW Absolute Neuts (auto) Sodium Beta HCG, Quant 06895.00 H Urine Urobilinogen Ur Leukocyte Esterase Urine HCG, Qual - Diagnostic Test Radiology reviewed: Image reviewed, Reports reviewed Discharge - Discharge Clinical Impression: Pelvic pain affecting in first trimester, antepartum Condition: Stable Disposition: HOME, SELF-CARE Instructions: [facility] Department Additional Instructions: Pelvic Pain in Lower abdominal pain during can have many causes. We look for serious causes such as appendicitis, tubal , miscarriage, placental separation, or urinary tract infection. Less serious causes of pain include corpus luteum cyst (ovarian cyst of ) or stretching of the pelvic tissues by the enlarging uterus. Sometimes the pain comes from the bowels. If no specific cause for the pain is found, we attribute the pain to stretching of the uterine ligaments. This is called "round ligament strain." It is not dangerous. Just rest until the pain goes away. Call us or come back for reexamination if any problems occur, such as: (1) Pain that becomes more severe, steady, or becomes concentrated in one specific area. Also, pain that is more severe with movement or coughing. (2) Vomiting that persists or becomes more frequent. (3) Blood in the vomitus, urine, or bowel movements. Blood in the stool may have a tarry or black appearance. (4) Shaking chills or fever greater than 100 degrees. (5) The abdomen becomes more distended or swollen. (6) Bowel movements cease. (7) Vaginal bleeding. Acetaminophen Acetaminophen may be taken for pain relief or fever control. It's much safer than aspirin, offering a wider range of "safe" dosages. It is safe during . Some brand names are Tylenol, Panadol, Datril, Anacin 3, Tempra, and Liquiprin. Acetaminophen can be repeated every four hours. The following are maximum recommended dosages: WEIGHT Dose Drops Elixir Chewable(80mg) (LBS.) drprs=droppers tsp=teaspoon 6 40 mg .4 ml (1/2) 6-11 80 mg .8 ml (full) 1/2 tsp 1 tab 12-16 120 mg 1 1/2 drprs 3/4 tsp 1 1/2 tabs 17-23 160 mg 2 drprs 1 tsp 2 tabs 24-30 240 mg 3 drprs 1 1/2 tsp 3 tabs 30-35 320 mg 2 tsp 4 tabs 36-41 360 mg 2 1/4 tsp 4 1/2 tabs 42-47 400 mg 2 1/2 tsp 5 tabs 48-53 480 mg 3 tsp 6 tabs 54-59 520 mg 3 1/4 tsp 6 1/2 tabs 60-64 560 mg 3 1/2 tsp 7 tabs 65-70 600 mg 3 3/4 tsp 7 1/2 tabs 71-76 640 mg 4 tsp 8 tabs 77-82 720 mg 4 1/2 tsp 9 tabs 83-88 800 mg 5 tsp 10 tabs >89 pounds or adults 650 mg to 900 mg Acetaminophen can be repeated every four hours. Maximum daily dose not to exceed 4000 mg. These maximum recommended dosages are slightly higher than the dosages written on the product container, but these dosages are very safe and well below the toxic dosage for acetaminophen. Antinausea Medication You have been given a medication to suppress nausea and vomiting. This type of medication can be given as a shot, pill, or suppository. It will usually last for many hours. Pills and shots usually last six to eight hours, suppositories last about 12 hours. For the typical illness, only one or two doses of the medication may be necessary. Mild lightheadedness may occur. This type of medicine can cause drowsiness. Do not drive or operate dangerous machinery while under its influence. Do not mix with alcohol. See your doctor at once if you have muscle spasms or tightness, or uncon trollable motions (particularly of the neck, mouth, or jaw). Persistent vomiting or severe lightheadedness should also be evaluated by the physician. FOLLOW-UP CARE: If you have been referred to a physician for follow-up care, call the physicians office for an appointment as you were instructed or within the next two days. If you experience worsening or a significant change in your symptoms, notify the physician immediately or return to the Emergency Department at any time for re-evaluation. Prescriptions: Ondansetron [Zofran Odt 4 mg Tablet] 1 tab PO Q6H #10 tab.rapdis Referrals: TERENCE SARABIA MD [Primary Care Provider] - Follow up as needed [facility] [Provider Group] - Follow up as needed
--- NOTE | 2019-08-15 00:15 | RADIOLOGY REPORT (SQ) ---
EXAM DESCRIPTION: US TRANSVAGINAL COMPLETED DATE/TME: 08/14/2019 23:34 CLINICAL HISTORY: 34 years, Female, pelvic pain Findings: Uterus is anteverted and measures 10.7 x 7.0 x 6.4 cm. Single IUP is noted with estimated gestational age 6 weeks and four days. Estimated date of delivery 04/04/2020. Cervical length 3.1 cm, is closed. No abnormal adnexal masses. Trace free fluid in the pelvis. heart rate preserved at 128 bpm. IMPRESSION: Single viable IUP of six weeks and four days.
[2019-08-15] MEDS ORDERED: ONDANSETRON 4 MG TAB.RAPDIS PO ONE (01:39)
[2019-08-15 03:02] VITALS: BP 111/63
== END 2019-08-15 02:50 | disposition home or self-care (01) ==
LOC: ER 19:41
DX: O26.891 Other specified pregnancy related conditions, first trimester (principal); R10.2 Pelvic and perineal pain; R10.30 Lower abdominal pain, unspecified; Z3A.01 Less than 8 weeks gestation of pregnancy; Z90.49 Acquired absence of other specified parts of digestive tract; Z88.6 Allergy status to analgesic agent
CPT/HCPCS: 36415; 84702; 85025; 81025; 80048; 81001; 76817; S0119 ×2; 99284

== ENCOUNTER 2019-09-06 01:53 | Emergency (ER) | payer MEDICAID ==
[2019-09-06 03:23] LABS: ABSOLUTE EOSINOPHILS # (AUTO) 0.1 10^3/uL (0.0-0.6); ABSOLUTE LYMPHOCYTES (AUTO) 2.5 10^3/uL (0.5-4.7); ABSOLUTE MONOCYTES (AUTO) 0.7 10^3/uL (0.1-1.4); ABSOLUTE NEUT (AUTO) 8.4 10^3/uL (1.7-8.2); BASOPHILS % (AUTO) 0.3 % (0-2); EOSINOPHILS % (AUTO) 0.6 % (0-6); HEMATOCRIT 38.6 % (36.0-47.0); HEMOGLOBIN 12.7 g/dL (12.0-15.5); MEAN CORPUSCULAR HEMOGLOBIN 28.9 pg (27.0-33.4); MEAN CORPUSCULAR HGB CONC 32.9 g/dL (32.0-36.0); MEAN CORPUSCULAR VOLUME 88 fl (80-97); MONOCYTES % (AUTO) 6.2 % (3-13); PLATELET COUNT 245 10^3/uL (150-450); RED BLOOD COUNT 4.39 10^6/uL (3.72-5.28); SEGMENTED NEUTROPHILS % (AUTO) 71.9 % (42-78); TOTAL CELLS COUNTED % (AUTO) 100 %; WHITE BLOOD COUNT 11.7 10^3/uL (4.0-10.5)
--- NOTE | 2019-09-06 03:29 | ER Document Report ---
ED GI/ - General Chief Complaint: Vag Bleeding, +preg <12wks Stated Complaint: BLEEDING & PAIN Time Seen by Provider: 09/06/19 03:28 Primary Care Provider: TERENCE SARABIA MD [Primary Care Provider] - Follow up as needed Mode of Arrival: Ambulatory Information source: Patient Notes: HISTORY OF PRESENT ILLNESS: Patient is a 34-year-old female at approximately 10 to 12 weeks with a past medical history of miscarriages who presents with vaginal bleeding and abdominal cramping for the past 2 days. Patient reports that she had similar symptoms pre ceding her previous miscarriage. Patient also reports that she has had bleeding in before requiring RhoGam. Location: Pelvic Onset: Days ago Provocation: Movement Quality: Pain, bleeding Radiation: None Severity: Moderate Timing: Constant LMP: Approximately 3 months ago Associated symptoms: Denies fevers or chills, no cough or congestion, no vaginal discharge, no vomiting or diarrhea REVIEW OF SYSTEMS: CONSTITUTIONAL : Denies fever or chills, no sweats. Denies recent illness. EENT: Denies eye, ear, throat, or mouth pain or symptoms. Denies nasal or sinus congestion. CARDIOVASCULAR: Denies chest pain. RESPIRATORY: Denies cough, cold, or chest congestion. Denies shortness of breath, difficulty breathing, or wheezing. GASTROINTESTINAL: Denies abdominal pain. Denies nausea, vomiting, or diarrhea. Denies constipation. GENITOURINARY: Positive for vaginal bleeding. Denies difficulty urinating, painful urination, burning, frequency, or blood in urine. Denies vaginal discharge. MUSCULOSKELETAL: Denies neck or back pain or joint pain or swelling. SKIN: Denies rash or skin lesions. HEMATOLOGIC : Denies easy bruising or bleeding. LYMPHATIC: Denies swollen, enlarged glands. NEUROLOGICAL: Denies altered mental status or loss of consciousness. Denies headache. Denies weakness or paralysis or loss of use of either side. Denies problems with gait or speech. Denies sensory or motor loss. PSYCHIATRIC: Denies anxiety or stress or depression. All other systems reviewed and negative. PHYSICAL EXAMINATION: GENERAL: Well-appearing, well-nourished and in no acute distress. HEAD: Atraumatic, normocephalic. No scalp deformity, depression, or crepitance. EYES: Pupils are 3 mm and equal/round/reactive to light, extraocular movements intact, sclera anicteric, conjunctiva are normal. ENT: Nares patent bilaterally, oropharynx clear without exudates or palatal petechia. Moist mucous membranes. No tonsil hypertrophy. NECK: Normal range of motion, supple without lymphadenopathy. LUNGS: Breath sounds present, equal, and clear to auscultation bilaterally. No wheezes, rales, or rhonchi. HEART: Regular rate and rhythm without murmurs, rubs, or gallops. 2+ peripheral pulses. Normal capillary refill. ABDOMEN: Soft, nontender, nondistended. Normoactive bowel sounds. No guarding, no rebound. No masses appreciated. BACK: Normal contour, no midline tenderness. Rectal exam deferred. PELVC: Deferred. EXTREMITIES: Normal range of motion, no pitting or edema. No cyanosis. NEUROLOGICAL: No focal neurological deficits. Moves all extremities spontaneously and on command. PSYCH: Normal mood, normal affect. No suicidal thoughts/ideations. No homicidal thoughts/ideations. No hallucinations. SKIN: Warm, dry, normal turgor, no rashes or lesions noted. ASSESSMENT AND PLAN: This patient is a 34-year-old female who presents with vaginal bleeding abdominal pain concerning for threatened versus completed versus abdominal pain and . 1. Will obtain labs, urine, type and screen, and pelvic ultrasound. 2. Will reassess. TRAVEL OUTSIDE OF THE [place] 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 Menstrual period history: Associated symptoms: None Exacerbated by: Denies Relieved by: Denies Similar symptoms previously: No Recently seen / treated by doctor: No - Related Data Allergies/Adverse Reactions: codeine Allergy (Verified 09/06/19 02:25) oxycodone [From Percocet] Allergy (Verified 09/06/19 02:25) Past Medical History - General Information source: Patient - Social History Smoking Status: Former Smoker Chew tobacco use (# tins/day): No Frequency of alcohol use: None Drug Abuse: None Lives with: Family Family History: None, Reviewed & Not Pertinent Patient has suicidal ideation: No Patient has homicidal ideation: No - Past Medical History Cardiac Medical History: Reports: None Pulmonary Medical History: Reports: Hx Bronchitis EENT Medical History: Reports: None Neurological Medical History: Reports: Hx Migraine Endocrine Medical History: Reports: None Renal/ Medical History: Reports: None. Denies: Hx Peritoneal Dialysis Malignancy Medical History: Reports: None GI Medical History: Reports: None Musculoskeletal Medical History: Reports None Skin Medical History: Reports None Psychiatric Medical History: Reports: Hx Depression Traumatic Medical History: Reports: None Infectious Medical History: Reports: None Past Surgical History: Reports: Hx Cholecystectomy - Immunizations Immunizations up to date: Yes Hx Diphtheria, Pertussis, Tetanus Vaccination: Yes - received in 04/2012 per pt Review of Systems - Review of Systems Constitutional: No symptoms reported EENT: No symptoms reported Cardiovascular: No symptoms reported Respiratory: No symptoms reported Gastrointestinal: See HPI, Abdominal pain Genitourinary: No symptoms reported Female Genitourinary: See HPI, , Vaginal bleeding Musculoskeletal: No symptoms reported Skin: No symptoms reported Hematologic/Lymphatic: No symptoms reported Neurological/Psychological: No symptoms reported -: Yes All other systems reviewed and negative Physical Exam - Vital signs Vitals: Temp Pulse Resp BP Pulse Ox 98.3 F 75 17 126/64 H 98 09/06/19 01:58 09/06/19 01:58 09/06/19 01:58 09/06/19 01:58 09/06/19 01:58 Interpretation: Normal Course - Re-evaluation Re-evalutation: 09/06/19 06:43 Ultrasound shows a single live intrauterine at approximately 10 weeks. Patient is negative, therefore was given RhoGam. Will discharge the patient home with strict return precautions and follow-up with [facility]. All results were explained to and discussed with the patient, and all questions addressed and answered. The patient voices both understanding and agreeing with the plan. - Vital Signs Vital signs: Temp Pulse Resp BP Pulse Ox 98.4 F 76 16 112/64 100 09/06/19 06:34 09/06/19 06:34 09/06/19 06:34 09/06/19 06:34 09/06/19 06:34 - Laboratory Result Diagrams: 09/06/19 03:08 Laboratory results interpreted by me: 09/06/19 09/06/19 09/06/19 03:08 03:08 03:46 WBC 11.7 H RDW 15.0 H Absolute Neuts (auto) 8.4 H Beta HCG, Quant 931446.00 H Urine Blood SMALL H - Diagnostic Test Radiology reviewed: Image reviewed, Reports reviewed Discharge - Discharge Clinical Impression: Threatened in early Condition: Good Disposition: HOME, SELF-CARE Instructions: Threatened Miscarriage ([facility]) Additional Instructions: You have been evaluated in the Emergency Department for vaginal bleeding and pain during . While here, you had a normal ultrasound and it is now safe to be discharged home. Please follow-up with your [facility] as instructed, please contact them for a follow-up if not already scheduled. Return to the Emergency Department if you experience worsening pain, worsening bleeding, passage of tissue, or any other concerning symptoms. Forms: Return to Work Referrals: TERENCE SARABIA MD [Primary Care Provider] - Follow up as needed Print Language: Tamazight
[2019-09-06 04:07] LABS: APPEARANCE,URINE SLIGHTLY-CLOUDY; BILIRUBIN,URINE NEGATIVE (NEGATIVE); COLOR,URINE YELLOW; GLUCOSE, URINE NEGATIVE (NEGATIVE); KETONES,URINE NEGATIVE (NEGATIVE); LEUKOCYTE ESTERASE,URINE NEGATIVE (NEGATIVE); NITRITE,URINE NEGATIVE (NEGATIVE); PROTEIN,URINE NEGATIVE (NEGATIVE); UROBILINOGEN,URINE NEGATIVE mg/dL (<2.0)
--- NOTE | 2019-09-06 04:24 | RADIOLOGY REPORT (SQ) ---
CLINICAL HISTORY: Abdominal pain COMPARISON: None. TECHNIQUE: US LESS THAN 14 WEEKS on 09/06/2019 3:31 AM CDT FINDINGS: Intrauterine gestation measures 3.2 cm by crown-rump length, corresponding to 10 weeks zero days. heart rate is 160 bpm. Right ovary is unremarkable with patent flow. Left ovary is not seen. IMPRESSION: Single live intrauterine gestation measuring 10 weeks by crown-rump length.
[2019-09-06 06:35] VITALS: BP 112/64
== END 2019-09-06 06:56 | disposition home or self-care (01) ==
LOC: ER 01:53
DX: O20.0 Threatened abortion (principal); Z3A.10 10 weeks gestation of pregnancy; Z90.49 Acquired absence of other specified parts of digestive tract; Z88.6 Allergy status to analgesic agent
CPT/HCPCS: 86900; 86901; 36415; 86850; 84702; 85025; 81001; 76801; J2790; 99284

== ENCOUNTER 2019-10-05 17:28 | Emergency (ER) | payer MEDICAID ==
[2019-10-05 19:40] LABS: ABSOLUTE EOSINOPHILS # (AUTO) 0.1 10^3/uL (0.0-0.6); ABSOLUTE LYMPHOCYTES (AUTO) 2.4 10^3/uL (0.5-4.7); ABSOLUTE MONOCYTES (AUTO) 0.7 10^3/uL (0.1-1.4); ABSOLUTE NEUT (AUTO) 8.8 10^3/uL (1.7-8.2); BASOPHILS % (AUTO) 0.3 % (0-2); EOSINOPHILS % (AUTO) 0.5 % (0-6); HEMATOCRIT 38.7 % (36.0-47.0); HEMOGLOBIN 13.2 g/dL (12.0-15.5); MEAN CORPUSCULAR HEMOGLOBIN 30.1 pg (27.0-33.4); MEAN CORPUSCULAR VOLUME 89 fl (80-97); MONOCYTES % (AUTO) 5.7 % (3-13); PLATELET COUNT 241 10^3/uL (150-450); RED BLOOD COUNT 4.37 10^6/uL (3.72-5.28); RED CELL DISTRIBUTION WIDTH 14.4 % (11.5-14.0); SEGMENTED NEUTROPHILS % (AUTO) 73.5 % (42-78); TOTAL CELLS COUNTED % (AUTO) 100 %; WHITE BLOOD COUNT 11.9 10^3/uL (4.0-10.5)
[2019-10-05 19:50] LABS: BILIRUBIN,URINE NEGATIVE (NEGATIVE); GLUCOSE, URINE NEGATIVE (NEGATIVE); KETONES,URINE TRACE mg/dL (NEGATIVE); PROTEIN,URINE 30 mg/dL (NEGATIVE)
[2019-10-05 19:51] LABS: APPEARANCE,URINE CLOUDY; COLOR,URINE DARK YELLOW
[2019-10-05 19:56] LABS: ALBUMIN 4.1 g/dL (3.5-5.0); ALKALINE PHOSPHATASE 70 U/L (38-126); ANION GAP 8 (5-19); ASPARTATE AMINO TRANSFERASE 18 U/L (14-36); BILIRUBIN,DIRECT 0.1 mg/dL (0.0-0.4); BILIRUBIN,TOTAL 0.5 mg/dL (0.2-1.3); BLOOD UREA NITROGEN 5 mg/dL (7-20); CALCIUM 9.7 mg/dL (8.4-10.2); CARBON DIOXIDE 25 mmol/L (22-30); CHLORIDE 104 mmol/L (98-107); GLUCOSE 92 mg/dL (75-110); POTASSIUM 4.2 mmol/L (3.6-5.0)
--- NOTE | 2019-10-05 20:25 | RADIOLOGY REPORT (SQ) ---
EXAM DESCRIPTION: US FOLLOW UP COMPLETED DATE/TME: 10/05/2019 18:47 CLINICAL HISTORY: 34 years, Female, Abdominal pain COMPARISON: Prior study from 09/06/2019 TECHNIQUE: Axial 2-D grayscale images of the pelvis were acquired. Doppler was utilized. LIMITATIONS: None. FINDINGS: Cervix measures 3.2 cm in length. Single intrauterine is identified. Largest vertical pocket of amniotic fluid is 3.7 cm. Placenta is located lateral to the right, grade 1. presentation is breech. heart rate is 150 bpm. IMPRESSION: Single live intrauterine , as above. heart rate is 150 bpm. No definite acute sonographic finding. Largest vertical pocket of amniotic fluid is 3.7 cm. copyright 2010 [employer]- All Rights Reserved
--- NOTE | 2019-10-05 22:52 | ER Document Report ---
ED General - General Chief Complaint: Back Pain Stated Complaint: NAUSEA Time Seen by Provider: 10/05/19 18:46 Primary Care Provider: TERENCE SARABIA MD [Primary Care Provider] - Follow up as needed TRAVEL OUTSIDE OF THE [place] IN LAST 30 DAYS: No - HPI Notes: Chief complaint: Low back pain and constipation and 34-year-old 6 para 5 at 14 weeks EGA presenting with complaints as above. No bowel movement past 4 days. MiraLAX at home and a Dulcolax suppository without much improvement. Mild nausea without vomiting. No fever, chills, dysuria. Dull bilateral low back pain. Took Tylenol this morning with minimal relief. Patient has been going to the health department for care and is on no prescription medications. She denies any other medical comorbidities. No complicating factors with her previous pregnancies. - Related Data Allergies/Adverse Reactions: codeine Allergy (Verified 10/05/19 18:37) oxycodone [From Percocet] Allergy (Verified 10/05/19 18:37) Past Medical History - General Information source: Patient - Social History Smoking Status: Never Smoker Chew tobacco use (# tins/day): No Frequency of alcohol use: None Family History: None, Reviewed & Not Pertinent Patient has suicidal ideation: No Patient has homicidal ideation: No - Past Medical History Cardiac Medical History: Reports: None Pulmonary Medical History: Reports: Hx Bronchitis Neurological Medical History: Reports: Hx Migraine Endocrine Medical History: Reports: None Renal/ Medical History: Reports: None. Denies: Hx Peritoneal Dialysis GI Medical History: Reports: Other - Chronic constipation Musculoskeletal Medical History: Reports None Skin Medical History: Reports None Psychiatric Medical History: Reports: Hx Depression Past Surgical History: Reports: Hx Cholecystectomy - Immunizations Immunizations up to date: Yes Hx Diphtheria, Pertussis, Tetanus Vaccination: Yes - received in 04/2012 per pt Review of Systems - Review of Systems Notes: Constitutional: Negative for fever. HENT: Negative for sore throat. Eyes: Negative for visual changes. Cardiovascular: Negative for chest pain. Respiratory: Negative for shortness of breath. Gastrointestinal: As per HPI Genitourinary: Negative for dysuria. No vaginal bleeding or discharge. Musculoskeletal: As per HPI Skin: Negative for rash. Neurological: Negative for headaches, weakness or numbness. 10 point ROS negative except as marked above and in HPI. Physical Exam - Vital signs Vitals: Temp Pulse Resp BP Pulse Ox 98.6 F 91 18 137/75 H 100 10/05/19 17:52 10/05/19 17:52 10/05/19 17:52 10/05/19 17:52 10/05/19 17:52 Notes: GENERAL: Well-developed well-nourished appearing in no acute distress. SKIN: Good turgor no rashes. HEAD: Normocephalic atraumatic. EYES: PERRLA. Conjunctivae and sclerae clear. EARS: CANALS AND TMS CLEAR. NOSE: CLEAR. MOUTH: Moist mucosa. Good dentition. No stridor or edema. No drooling. NECK: Supple. No masses or thyromegaly. No adenopathy. Carotids 2+ without bruits. No JVD. BACK: Symmetrical without tenderness. CHEST: Respirations unlabored. Breath sounds clear and symmetrical. HEART: Regular rhythm. No murmur gallop or rub. ABDOMEN: Gravid uterus with fundus palpable just above the pubic symphysis. Soft nontender without masses, hepatosplenomegaly or rebound. Bowel sounds normally active. No bruits. GENITALIA: Deferred. EXTREMITIES: No edema. No calf tenderness. Cap refill less than 1.5 seconds. Dorsalis pedis and posterior tibial pulses 3+ and symmetrical. NEUROLOGICAL: GCS 15. Alert and oriented x3. Normal gait. Fluent speech. Cranial nerves II through XII intact. Sensorimotor and cerebellar normal. Normal tone. PSYCHIATRIC: Flat affect. Course - Re-evaluation Re-evalutation: 10/05/19 22:53 Obstetrical ultrasound showed heart 150 and single IUP at about 14 weeks gestation. No abnormalities noted per radiologist. Patient will receive a tap water enema here and then to suspect discharge home on oral milk of magnesia, increase fluids and Tylenol as needed to follow-up with health department obstetrical clinic. - Vital Signs Vital signs: Temp Pulse Resp BP Pulse Ox 98 F 67 16 104/67 99 10/06/19 00:07 10/06/19 00:07 10/06/19 00:07 10/06/19 00:07 10/06/19 00:07 - Laboratory Result Diagrams: 10/05/19 19:20 10/05/19 19:20 Laboratory results interpreted by me: 10/05/19 10/05/19 10/05/19 19:20 19:20 19:20 WBC 11.9 H RDW 14.4 H Absolute Neuts (auto) 8.8 H BUN 5 L Creatinine 0.48 L Urine Protein 30 H Urine Ketones TRACE H Urine Urobilinogen 2.0 H Leukocyte Esterase Rfl TRACE H Urine Ascorbic Acid 20 H - Diagnostic Test Radiology reviewed: Reports reviewed Discharge - Discharge Clinical Impression: IUP at 14 weeks EGA, Constipation Low back pain Qualifiers: Chronicity: unspecified Back pain laterality: bilateral Sciatica presence: without sciatica Qualified Code(s): M54.5 - Low back pain Condition: Stable Disposition: HOME, SELF-CARE Additional Instructions: Take Tylenol as needed. Increase oral fluids. [id number] milk of magnesia 2 tablespoons at bedtime as needed for constipation. Return here as needed for new or worsening symptoms. Follow-up with obstetrics clinic at the [facility] department. Referrals: TERENCE SARABIA MD [Primary Care Provider] - Follow up as needed
[2019-10-06 00:12] VITALS: BP 104/67
== END 2019-10-06 01:02 | disposition home or self-care (01) ==
LOC: ER 17:28
DX: O99.619 Diseases of the digestive system complicating pregnancy, unspecified trimester (principal); K59.00 Constipation, unspecified; O99.89 Other specified diseases and conditions complicating pregnancy, childbirth and the puerperium; M54.5 Low back pain; O26.899 Other specified pregnancy related conditions, unspecified trimester; R11.0 Nausea; Z3A.14 14 weeks gestation of pregnancy; Z88.5 Allergy status to narcotic agent
CPT/HCPCS: 36415; 76805; 80053; 81001; 83690; 85025; 87086; 99284

== ENCOUNTER 2020-01-28 15:14 | Outpatient (CLI) | payer MEDICAID ==
[2020-01-28 15:54] LABS: APPEARANCE,URINE SLIGHTLY-CLOUDY; BILIRUBIN,URINE NEGATIVE (NEGATIVE); COLOR,URINE AMBER; GLUCOSE, URINE NEGATIVE (NEGATIVE); KETONES,URINE 20 mg/dL (NEGATIVE); LEUKOCYTE ESTERASE,URINE NEGATIVE (NEGATIVE); NITRITE,URINE NEGATIVE (NEGATIVE); PROTEIN,URINE 30 mg/dL (NEGATIVE); URINE SPECIFIC GRAVITY 1.024
[2020-01-28 16:11] LABS: URINE AMPHETAMINES SCREEN NEGATIVE; URINE BARBITURATES SCREEN NEGATIVE; URINE BENZODIAZEPINES SCREEN NEGATIVE; URINE COCAINE SCREEN NEGATIVE; URINE MARIJUANA (THC) SCREEN NEGATIVE; URINE METHADONE SCREEN NEGATIVE; URINE PHENCYCLIDINE SCREEN NEGATIVE
[2020-01-28] MEDS ORDERED: PROMETHAZINE HCL INJ 25 MG/1 ML VIAL ONE (16:27)
[2020-01-28] MEDS ORDERED: PROMETHAZINE HCL INJ 25 MG/1 ML VIAL IV ONE (16:28)
[2020-01-28] MEDS ORDERED: RINGERS SOLUTION,LACTATED 2,000 ML IV PRN (16:28)
[2020-01-28] MEDS ORDERED: FAMOTIDINE INJ/PF 20 MG/2 ML SDV IV ONE ×2 (18:33→19:15)
[2020-01-28] MEDS ORDERED: MAG HYDROX/AL HYDROX/SIMETH SUSP 30 ML UDCUP ONE (18:33)
[2020-01-28] MEDS ORDERED: MAG HYDROX/AL HYDROX/SIMETH SUSP 30 ML UDCUP PO ONE (19:15)
== END 2020-01-28 19:13 | disposition home or self-care (01) ==
LOC: LC 15:14
PROVIDERS: ATTEND Obstetrics & Gynecology
PROC: 4A1HXCZ Monitoring of Products of Conception, Cardiac Rate, External Approach (ICD-10-PCS; principal; 2020-01-28)
DX: O99.283 Endocrine, nutritional and metabolic diseases complicating pregnancy, third trimester (principal); E86.0 Dehydration; O09.523 Supervision of elderly multigravida, third trimester; Z3A.30 30 weeks gestation of pregnancy
CPT/HCPCS: 59899; 81001; 80307; J3490; J2550; S0028

== ENCOUNTER 2020-04-03 05:42 | Inpatient (IN) | payer MEDICAID ==
[2020-04-03] MEDS ORDERED: OXYTOCIN/NORMAL SALINE 20 UNIT/1,000 ML RTUINJ IV PRN ×3 (06:10→20:24)
[2020-04-03] MEDS ORDERED: RINGERS SOLUTION,LACTATED 1,000 ML IV ONE (06:11)
[2020-04-03] MEDS ORDERED: PENICILLIN G POTASSIUM 5,000,000 UNIT in DEXTROSE 5%-WATER 100 ML IV ONE (06:30)
[2020-04-03] MEDS ORDERED: OXYTOCIN 10 UNIT/ML VIAL ONE (06:41)
[2020-04-03] MEDS ORDERED: LIDOCAINE 1% INJ-PF (10 MG/ML) 30 ML SDV ONE (06:41)
[2020-04-03] MEDS ORDERED: MISOPROSTOL 0.2 MG TABLET ONE (06:41)
[2020-04-03] MEDS ORDERED: OXYTOCIN/NORMAL SALINE 20 UNIT/1,000 ML RTUINJ ONE (06:41)
[2020-04-03 06:45] LABS: ABSOLUTE BASOPHILS # (AUTO) 0.1 10^3/uL (0.0-0.2); ABSOLUTE EOSINOPHILS # (AUTO) 0.1 10^3/uL (0.0-0.6); ABSOLUTE NEUT (AUTO) 8.3 10^3/uL (1.7-8.2); BASOPHILS % (AUTO) 0.5 % (0-2); EOSINOPHILS % (AUTO) 0.5 % (0-6); HEMATOCRIT 30.5 % (36.0-47.0); HEMOGLOBIN 10.4 g/dL (12.0-15.5); LYMPHOCYTES % (AUTO) 17.2 % (13-45); MEAN CORPUSCULAR HGB CONC 34.2 g/dL (32.0-36.0); MEAN CORPUSCULAR VOLUME 82 fl (80-97); MONOCYTES % (AUTO) 8.9 % (3-13); PLATELET COUNT 301 10^3/uL (150-450); RED BLOOD COUNT 3.73 10^6/uL (3.72-5.28); SEGMENTED NEUTROPHILS % (AUTO) 72.9 % (42-78); TOTAL CELLS COUNTED % (AUTO) 100 %; WHITE BLOOD COUNT 11.3 10^3/uL (4.0-10.5)
[2020-04-03 06:52] LABS: APPEARANCE,URINE CLOUDY; BILIRUBIN,URINE NEGATIVE (NEGATIVE); COLOR,URINE AMBER; GLUCOSE, URINE NEGATIVE (NEGATIVE); KETONES,URINE TRACE mg/dL (NEGATIVE); LEUKOCYTE ESTERASE,URINE LARGE (NEGATIVE); NITRITE,URINE NEGATIVE (NEGATIVE); PROTEIN,URINE 30 mg/dL (NEGATIVE); URINE SPECIFIC GRAVITY 1.021
[2020-04-03 07:09] LABS: URINE AMPHETAMINES SCREEN NEGATIVE; URINE BARBITURATES SCREEN NEGATIVE; URINE BENZODIAZEPINES SCREEN NEGATIVE; URINE COCAINE SCREEN NEGATIVE; URINE MARIJUANA (THC) SCREEN NEGATIVE; URINE METHADONE SCREEN NEGATIVE; URINE PHENCYCLIDINE SCREEN NEGATIVE
[2020-04-03] MEDS: RINGERS SOLUTION,LACTATED 1,000 ML IV PRN ×2 (08:17→18:32)
[2020-04-03] MEDS ORDERED: DEXTROSE 5%-LACTATED RINGERS 1,000 ML IV PRN (08:25)
[2020-04-03] MEDS ORDERED: DEXTROSE 5%-LACTATED RINGERS 250 ML IV ONE (08:30)
[2020-04-03] MEDS ORDERED: PENICILLIN G-K 5 MILLION UNIT VIAL ONE ×3 (09:34→18:26)
--- NOTE | 2020-04-03 10:18 | Admission Physical ---
Datetime Report Generated by CPN: 04/03/2020 10:18 CURRENT ADMISSION Hx Assessment: The History has been Reviewed and is Current Chief Complaint: Scheduled Induction of Labor Indication for Induction: Maternal Diabetes Indication for Induction- Other: AMA Admit Impression : Term, Intrauterine Admit Plan: Admit to Unit; Initiate Labor Induction Protocol ALLERGIES Medication Allergies: Yes Medication Allergies: codeine (04/03/2020); oxycodone (04/03/2020) Latex: No Latex Allergies OBSTETRICAL HISTORY EDC: 04/07/2020 00:00 : 9 Para: 5 Term: 5 : 0 Ectopic: 0 Livin Cesareans: 0 VBACs: 0 Multiple Births: 0 Gestational Diabetes: Yes Rh Sensitization: No Incompetent Cervix: No NICK: No Infertility: No ART Treatment: No Uterine Anomaly: No IUGR: No Hx Previous C/S: No Macrosomia: No Hx Loss/Stillborn: No PIH: No Hx : No Placenta Previa/Abruption: No Depression/PP Depression: Yes PTL/PROM: No Post Hemorrhage: No Current Procedures: Ultrasound; NST Obstetrical History Comments: 1998- G22004- G32010- G42011- G52013- 2016- G05/2019- G9- Current SEE RECORDS Alcohol: No Marijuana : No Cocaine: No Other Illicit Drugs: No Cigarettes: Former Smoker. 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 Surgery: No Heart Disease: No Hosp/Surgery: Yes Autoimmune Disorder: No Anesthetic Complications: No Kidney Disease: No Abnormal Pap Smear: No Neuro/Epilepsy: No Psychiatric Disorders: No Other Medical Diseases: No Hepatitis/Liver Disease: No Significant Family History: No Varicosities/Phlebitis: No Trauma/Violence : No Thyroid Dysfunction: No Medical History Comments: post depression, anxiety /cholecystectomy/childbirthx5 INFECTIOUS HISTORY Gonorrhea: No Genital Herpes: No Chlamydia: Yes Tuberculosis: No Syphilis: No Hepatitis: No HIV/AIDS Exposure: No Rash or Viral Illness: No HPV: No Infectious History Comments: Chlamydia in 2010 PHYSICAL EXAM General: Normal Heart: Normal Lungs: Normal Abdomen: Normal Extremities: Normal Pelvic Type: Adequate Physical Exam Comments: proven to 8lbs 4oz Vital Signs: Reviewed; Within Normal Limits VAGINAL EXAM Contraction Comments: rare MEMBRANES Membranes: Ruptured Amniotic Fluid Color: Meconium, Light FETUS A EGA: 39.3 Monitoring: External US Decelerations: Late FHR Category: Category II FHR Comments: position changes, oxygen, fluid bolus, AROM done for possible amnioinfusion Admit Comment: 35yo @ 39w3d into L_D this AM for IOL secondary to GDM-A2 (glyburide 5mg qhs) and AMA. Pt is O neg, Rubella Immune, GBS positive with Hx of GDM and GDM again this as stated above. Medical hx also significant for depression and ADHD as well as anemia and obesity. Plan on arrival was to start pitocin but patient with a couple late decels and so pitocin was held. After position changes and other interventions stated above, amnio infusion was considered. Pt was AROM'ed with light meconium moderate amount of fluid, FSE was placed as well as IUPC for possible amnio infusion. Pt tolerated procedure well. Will continue to monitor and start amnio infusion and/or pitocin as needed dependence on tolerance/status. Dr. Hoang is the OB director of education and training today and aware. PLANS FOR LABOR AND DELIVERY Labor and Delivery: None Pain Management: Natural Feeding Preference: Breast Benefit of Breast Feed Discussed: Yes Circumcision: N/A INFORMED CONSENT Assignment: Kami Hoang MD Signature: with User ID: [email or web address] : with User ID: [email or web address]
[2020-04-03] MEDS: PENICILLIN G POTASSIUM 2,500,000 UNIT in DEXTROSE 5%-WATER 50 ML IV SCH ×2 (13:02→18:32)
[2020-04-03] MEDS ORDERED: IBUPROFEN 800 MG TABLET ONE (19:53)
[2020-04-03] MEDS ORDERED: PROMETHAZINE HCL 25 MG TABLET PO PRN (20:24)
[2020-04-03] MEDS ORDERED: DIBUCAINE 1% OINTMENT 28 GM TP PRN (20:24)
[2020-04-03] MEDS ORDERED: DIPH/PERTUSS(ACELL)/TETANUS VAC/PF 0.5 ML SYR (>=10YO) IM PRN (20:24)
[2020-04-03] MEDS ORDERED: NA PHOS,M-B/NA PHOS,DI-BA (ADULT) 133 ML ENEMA PR PRN (20:24)
[2020-04-03] MEDS ORDERED: PROMETHAZINE HCL INJ 25 MG/1 ML VIAL IV PRN (20:24)
[2020-04-03] MEDS ORDERED: BENZOCAINE/MENTHOL AEROSOL SPRAY 56 ML TOP PRN (20:24)
[2020-04-03] MEDS ORDERED: PROMETHAZINE HCL 25 MG SUPP.RECT PR PRN (20:24)
[2020-04-03] MEDS ORDERED: MEASLES,MUMPS&RUBELLA VACC/PF 0.5 ML VIAL SUBCUT PRN (20:24)
[2020-04-03] MEDS ORDERED: PSEUDOEPHEDRINE HCL 30 MG TABLET PO PRN (20:24)
[2020-04-03] MEDS ORDERED: ZOLPIDEM TARTRATE 5 MG TABLET PO PRN (20:24)
[2020-04-03] MEDS ORDERED: MAGNESIUM HYDROXIDE SUSP 30 ML UDCUP PO PRN (20:24)
[2020-04-03] MEDS ORDERED: GLYCERIN/WITCH HAZEL LEAF 1 EACH MED..WIPE TP PRN (20:24)
[2020-04-03] MEDS ORDERED: ACETAMINOPHEN 325 MG TABLET PO PRN (20:24)
[2020-04-03] MEDS ORDERED: DIPHENHYDRAMINE HCL 25 MG CAPSULE PO PRN (20:24)
[2020-04-03] MEDS ORDERED: HYDROCODONE/ACETAMINOPHEN 5-325 MG TABLET ONE (20:46)
[2020-04-03] MEDS: HYDROCODONE/ACETAMINOPHEN 5-325 MG TABLET PO PRN (20:48)
--- NOTE | 2020-04-03 21:37 | Delivery Summary ---
Del Sum A-C Datetime Report Generated by CPN: 04/03/2020 21:37 DELIVERY PERSONNEL DELIVERY PERSONNEL: [id number] Delivery Doctor:: Kami Hoang MD Labor and Delivery Nurse:: Joelle Regan RNfinancial services education consultant Nurse:: Tiffanie Plascencia RN Nursery Nurse:: Zenia Carrasco RN Events Specialist/MAIL DISTRIBUTOR: Laura Adam, ST MATERNAL INFORMATION Delivery Anesthesia: None Medications After Delivery: Pitocin Bolus-Please Comment Meds After Delivery Comment: Pitocin 20 units/1000 ml NSS Delivery QBL: 100 Maternal Complications: None LABOR SUMMARY EDC: 04/07/2020 00:00 No. Babies in Womb: 1 Attempted: No Labor Anesthesia: None LABOR INFORMATION Reason for Induction: Maternal Diabetes Onset of Labor: 04/03/2020 18:37 Complete Dilatation: 04/03/2020 19:16 Oxytocin: Augmentation Group B Beta Strep: pos Antibiotics # of Doses: 3 Antibiotics Time of Last Dose: 1832 Name of Antibiotic Given: PCN 2.5 million MEMBRANES Membranes Rupture Method: Artificial Rupture of Membranes: 04/03/2020 09:39 Length of Rupture (hr): 9.67 Amniotic Fluid Color: Clear Amniotic Fluid Amount: Small STAGES OF LABOR Stage 1 hr: 0 Stage 1 min: 39 Stage 2 hr: 0 Stage 2 min: 3 Stage 3 hr: 0 Stage 3 min: 8 Total Time in Labor hr: 0 Total Time in Labor min: 50 VAGINAL DELIVERY Episiotomy: None Laceration #1: None Laceration Extension #1: First Degree Other Laceration: Labial Laceration Repair: No Sponge Count Correct: N/A CSECTION DELIVERY Primary Indication: N/A Secondary Indication: N/A CSection Incidence: N/A Labor: N/A Elective: N/A CSection Incision: N/A BABY A INFORMATION Delivery Date/Time: 04/03/2020 19:19 Method of Delivery: Vaginal Nurse Controlled Delivery: No Born in Route : No : N/A Forceps: N/A Vacuum Extraction: N/A Shoulder Dystocia : No PRESENTATION/POSITION BABY A Presentation: Cephalic Cephalic Presentation: N/A Vertex Position: Left Occipital Posterior Breech Presentation: N/A PLACENTA INFORMATION BABY A Placenta Delivery Time : 04/03/2020 19:27 Placenta Method of Delivery: Spontaneous Placenta Status: Delivered SCORES BABY A Heart Rate 1 min: >100 bpm Resp Effort 1 min: Slow, Irregular Reflex Irritability 1 min: Grimace Muscle Tone 1 min: Some Flexion of Extremities Color 1 min: Blue/Pale Resuscitation Effort 1 min: N/A; Tactile Stimulation SCORE 1 MIN: 5 Heart Rate 5 min: >100 bpm Resp Effort 5 min: Slow, Irregular Reflex Irritability 5 min: Cough or Sneeze or Pulls Away Muscle Tone 5 min: Some Flexion of Extremities Color 5 min: Body [place]indstone, Extremities Blue SCORE 5 MIN: 7 INFANT INFORMATION BABY A Gestational Age at Delivery: 39.3 Gestational Status: Full Term- 39- 40.6 Weeks Outcome : Liveborn Condition : Stable Infant Sex: Female IDENTIFICATION BABY A Verification Date/Time: 04/03/2020 19:33 ID Band Number: [id number] Mother's Name Verified: Yes RN Verifying Infant: Chinmay Regan RN Additional Verifying Personnel: A. Adam, NET TECHNICAL ARCHITECT WEIGHT/LENGTH BABY A Infant Birthweight (gm): 3093 Infant Weight (lb): 6 Weight (oz): 13 Infant Length (in): 19.50 Length (cm): 49.53 CORD INFORMATION BABY A No. Cord Vessels: 3 Nuchal Cord- Other: x3, loose Cord Blood Taken: Yes-For Storage (Mom's Blood type +)
[2020-04-03] MEDS: FAMOTIDINE 20 MG TABLET PO SCH (23:52)
[2020-04-04] MEDS: IBUPROFEN 800 MG TABLET PO SCH ×4 (00:03→21:23)
[2020-04-04] MEDS: HYDROCODONE/ACETAMINOPHEN 5-325 MG TABLET PO PRN ×2 (02:52→06:58)
[2020-04-04 06:35] LABS: HEMATOCRIT 28.7 % (36.0-47.0); HEMOGLOBIN 9.8 g/dL (12.0-15.5); MEAN CORPUSCULAR HEMOGLOBIN 28.1 pg (27.0-33.4); MEAN CORPUSCULAR HGB CONC 34.3 g/dL (32.0-36.0); MEAN CORPUSCULAR VOLUME 82 fl (80-97); PLATELET COUNT 280 10^3/uL (150-450); RED CELL DISTRIBUTION WIDTH 14.9 % (11.5-14.0)
[2020-04-04] MEDS: PENICILLIN G POTASSIUM 2,500,000 UNIT in DEXTROSE 5%-WATER 50 ML IV SCH (09:00)
[2020-04-04] MEDS: SENNOSIDES/DOCUSATE 8.6-50 MG 1 EACH TABLET PO SCH (10:53)
[2020-04-04] MEDS: PRENATAL VITAMIN W DHA CAPSULE PO SCH (10:53)
[2020-04-04] MEDS: FAMOTIDINE 20 MG TABLET PO SCH ×2 (10:53→21:24)
[2020-04-04] MEDS: DOCUSATE SODIUM 100 MG CAPSULE PO SCH ×2 (10:53→17:55)
[2020-04-04] MEDS: FERROUS SULFATE 325 MG TABLET PO SCH ×2 (10:53→17:55)
--- NOTE | 2020-04-04 11:42 | PDOC PROGRESS REPORT ---
Subjective-OB Progress Note for:: 04/04/20 Subjective: Pt resting, doing well, no concerns. Reports light bleeding, reg diet and voiding without difficulty. Physical Exam (OB) Vital Signs: Temp Pulse Resp BP Pulse Ox 97.4 F 71 16 100/54 L 97 04/04/20 08:00 04/04/20 08:00 04/04/20 08:00 04/04/20 08:00 04/04/20 08:00 Intake & Output 04/03/20 04/04/20 04/05/20 06:59 06:59 06:59 Intake Total 1000 480 Output Total 500 Balance 500 480 Weight 102.2 kg - Lochia Lochia Amount: Small 10-25 ml Lochia Color: Rubra/Red - Abdomen Description: Soft Hernia Present: No Fundal Description: Firm, Midline Fundal Height: u/u - u/2 Objective-Diagnostic Laboratory: 04/04/20 06:20 04/04/20 06:20 WBC 17.0 H RBC 3.50 L Hgb 9.8 L Hct 28.7 L MCV 82 MCH 28.1 MCHC 34.3 RDW 14.9 H Plt Count 280 Assessment and Plan(PN) - Assessment and Plan (1) Advanced maternal age in multigravida Qualifiers: Trimester: unspecified trimester Qualified Code(s): O09.529 - Supervision of elderly multigravida, unspecified trimester Is this a current diagnosis for this admission?: Yes (2) Encounter for induction of labor Is this a current diagnosis for this admission?: Yes (3) Gestational diabetes mellitus (GDM) affecting ninth Is this a current diagnosis for this admission?: Yes (4) Obstetric labial laceration, delivered, current hospitalization Is this a current diagnosis for this admission?: Yes (6) Anemia Qualifiers: Anemia type: iron deficiency Iron deficiency anemia type: unspecified iron deficiency Qualified Code(s): D50.9 - Iron deficiency anemia, unspecified Is this a current diagnosis for this admission?: Yes (7) Delivery normal Is this a current diagnosis for this admission?: Yes (8) GBS (group B Streptococcus carrier), +RV culture, currently Is this a current diagnosis for this admission?: Yes - Time Spent with Patient Time with patient: Less than 15 minutes Medications reviewed and adjusted accordingly: Yes - Disposition Anticipated Discharge: Home Within: within 24 hours
[2020-04-05] MEDS: IBUPROFEN 800 MG TABLET PO SCH ×2 (06:17→14:16)
[2020-04-05 08:16] VITALS: BP 113/78
[2020-04-05] MEDS: DOCUSATE SODIUM 100 MG CAPSULE PO SCH (10:01)
[2020-04-05] MEDS: FAMOTIDINE 20 MG TABLET PO SCH (10:01)
[2020-04-05] MEDS: FERROUS SULFATE 325 MG TABLET PO SCH (10:01)
[2020-04-05] MEDS: SENNOSIDES/DOCUSATE 8.6-50 MG 1 EACH TABLET PO SCH (10:01)
[2020-04-05] MEDS: PRENATAL VITAMIN W DHA CAPSULE PO SCH (10:01)
--- NOTE | 2020-04-05 13:37 | PDOC DISCHARGE SUMMARY ---
Impression - Admit/DC Date/PCP Admission Date/Primary Care Provider: 04/03/20 05:42 NU GARNER MD Discharge Date: 04/05/20 - Discharge Diagnosis (1) Advanced maternal age in multigravida Is this a current diagnosis for this admission?: Yes (2) Encounter for induction of labor Is this a current diagnosis for this admission?: Yes (3) Gestational diabetes mellitus (GDM) affecting ninth Is this a current diagnosis for this admission?: Yes (4) Obstetric labial laceration, delivered, current hospitalization Is this a current diagnosis for this admission?: Yes (6) Delivery normal Is this a current diagnosis for this admission?: Yes - Additional Information Discharge Activity: Balance Activity w/Rest, Pelvic Rest Referrals: NU GARNER MD [Primary Care Provider] - Prescriptions: Ibuprofen [Ibu] 800 mg PO Q8HP PRN #60 tablet PRN Reason: Ibuprofen [Motrin 800 mg Tablet] 800 mg PO Q8HP PRN #60 tablet PRN Reason: Home Medications: Pnv No.95/Ferrous Fum/Folic AC [ Caplet] 1 each PO DAILY 09/06/19 Ibuprofen [Ibu] 800 mg PO Q8HP PRN #60 tablet 04/05/20 Ibuprofen [Motrin 800 mg Tablet] 800 mg PO Q8HP PRN #60 tablet 04/05/20 Results Laboratory Results: WBC 17.0 10^3/uL (4.0-10.5) H 04/04/20 06:20 RBC 3.50 10^6/uL (3.72-5.28) L 04/04/20 06:20 Hgb 9.8 g/dL (12.0-15.5) L 04/04/20 06:20 Hct 28.7 % (36.0-47.0) L 04/04/20 06:20 MCV 82 fl (80-97) 04/04/20 06:20 MCH 28.1 pg (27.0-33.4) 04/04/20 06:20 MCHC 34.3 g/dL (32.0-36.0) 04/04/20 06:20 RDW 14.9 % (11.5-14.0) H 04/04/20 06:20 Plt Count 280 10^3/uL (150-450) 04/04/20 06:20 Lymph % (Auto) 17.2 % (13-45) 04/03/20 06:23 Frio % (Auto) 8.9 % (3-13) 04/03/20 06:23 Eos % (Auto) 0.5 % (0-6) 04/03/20 06:23 Baso % (Auto) 0.5 % (0-2) 04/03/20 06:23 Absolute Neuts (auto) 8.3 10^3/uL (1.7-8.2) H 04/03/20 06:23 Absolute Lymphs (auto) 2.0 10^3/uL (0.5-4.7) 04/03/20 06:23 Absolute Monos (auto) 1.0 10^3/uL (0.1-1.4) 04/03/20 06:23 Absolute Eos (auto) 0.1 10^3/uL (0.0-0.6) 04/03/20 06:23 Absolute Basos (auto) 0.1 10^3/uL (0.0-0.2) 04/03/20 06:23 Seg Neutrophils % 72.9 % (42-78) 04/03/20 06:23 Urine Color UMA 04/03/20 06:00 Urine Appearance CLOUDY 04/03/20 06:00 Urine pH 6.0 (5.0-9.0) 04/03/20 06:00 Ur Specific [place] 1.021 04/03/20 06:00 Urine Protein 30 mg/dL (NEGATIVE) H 04/03/20 06:00 Urine Glucose (UA) NEGATIVE mg/dL (NEGATIVE) 04/03/20 06:00 Urine Ketones TRACE mg/dL (NEGATIVE) H 04/03/20 06:00 Urine Blood SMALL (NEGATIVE) H 04/03/20 06:00 Urine Nitrite NEGATIVE (NEGATIVE) 04/03/20 06:00 Urine Bilirubin NEGATIVE (NEGATIVE) 04/03/20 06:00 Urine Urobilinogen 4.0 mg/dL (<2.0) H 04/03/20 06:00 Ur Leukocyte Esterase LARGE (NEGATIVE) H 04/03/20 06:00 Urine Ascorbic Acid NEGATIVE (NEGATIVE) 04/03/20 06:00 Urine Opiates Screen NEGATIVE 04/03/20 06:00 Urine Methadone Screen NEGATIVE 04/03/20 06:00 Ur Barbiturates Screen NEGATIVE 04/03/20 06:00 Ur Phencyclidine Scrn NEGATIVE 04/03/20 06:00 Ur Amphetamines Screen NEGATIVE 04/03/20 06:00 U Benzodiazepines Scrn NEGATIVE 04/03/20 06:00 Urine Cocaine Screen NEGATIVE 04/03/20 06:00 U Marijuana (THC) Screen NEGATIVE 04/03/20 06:00 RPR NONREACTIVE (NONREACTIVE) 04/03/20 06:23 Blood Type O NEGATIVE 04/03/20 06:23 Antibody Screen NEGATIVE 04/03/20 06:23 Plan Plan of Treatment: follow up in 4 weeks at [facility] for post check. check fasting blood sugars twice weekly and bring log to post visit
== END 2020-04-05 14:38 | disposition home or self-care (01) | DRG 807 ==
LOC: LR 05:42 → 2S 22:24
PROVIDERS: ADMIT Student in an Organized Health Care Education/Training Program; ATTEND Student in an Organized Health Care Education/Training Program
PROC: 10E0XZZ Delivery of Products of Conception, External Approach (ICD-10-PCS; principal; 2020-04-03)
PROC: 10907ZC Drainage of Amniotic Fluid, Therapeutic from Products of Conception, Via Natural or Artificial Opening (ICD-10-PCS; 2020-04-03)
PROC: 10H07YZ Insertion of Other Device into Products of Conception, Via Natural or Artificial Opening (ICD-10-PCS; 2020-04-03)
DX: O24.425 Gestational diabetes mellitus in childbirth, controlled by oral hypoglycemic drugs (principal); Z37.0 Single live birth; O99.344 Other mental disorders complicating childbirth; F32.9 Major depressive disorder, single episode, unspecified; F90.9 Attention-deficit hyperactivity disorder, unspecified type; O99.214 Obesity complicating childbirth; O77.0 Labor and delivery complicated by meconium in amniotic fluid; E66.9 Obesity, unspecified; O70.0 First degree perineal laceration during delivery; Z3A.39 39 weeks gestation of pregnancy; Z87.891 Personal history of nicotine dependence; O76 Abnormality in fetal heart rate and rhythm complicating labor and delivery; O69.81X0 Labor and delivery complicated by cord around neck, without compression, not applicable or unspecified
CPT/HCPCS: 36415; 80307; 81005; 85025; 85027; 86592; 86850; 86900; 86901; 94760; C1758; J2540; J2590; J3490; J7060